=== PATIENT | male | born 1960 | race Caucasian/White ===

== ENCOUNTER 2018-04-04 12:02 | Inpatient (IN) | payer OTHER ==
[2018-04-04 13:03] LABS: HGB 19.1 gm/dL (13.0-17.5); MCH 27.6 pg (25.0-35.0); MCHC 34.3 g/dL (31.0-37.0); MCV 80.4 fL (80.0-100.0); Mean Platelet Volume 9.1; Platelet Count 151 k/uL (150-450); RBC 6.91 m/uL (4.30-5.90); RDW 12.4 % (11.5-15.5); WBC 15.3 k/uL (3.8-10.6)
[2018-04-04 13:15] LABS: HCT 55.6 % (39.0-53.0)
[2018-04-04 13:17] LABS: Albumin 4.9 g/dL (3.5-5.0); Calcium 9.9 mg/dL (8.4-10.2); Potassium 3.7 mmol/L (3.5-5.1); Total Bilirubin 1.4 mg/dL (0.2-1.3); Total Protein 7.7 g/dL (6.3-8.2)
[2018-04-04 13:38] LABS: Lymphocytes # (M) 0.92 k/uL (1.0-4.8); Monocytes # (M) 0.61 k/uL (0-1.0); Neutrophils # (M) 13.77 k/uL (1.3-7.7); Neutrophils % (M) 90 %; Nucleated Red Blood Cells 0 /100 WBC (0-0); Total Cells Counted 100
[2018-04-04 13:40] LABS: Anisocytosis (M) Present
[2018-04-04] MEDS ORDERED: SODIUM CHLORIDE 0.9% 1,000 ML IV STA ×2 (14:30)
--- NOTE | 2018-04-04 14:33 | ED ---
Abdominal Pain HPI <Sohail Gunderson - Last Filed: 04/04/18 16:48> - General Source: patient, RN notes reviewed, old records reviewed Mode of arrival: ambulatory Limitations: no limitations <Norah Hernández - Last Filed: 04/04/18 17:49> - General Chief Complaint: Abdominal Pain Stated Complaint: POSS DEHYDRATION, ABDOMINAL PAIN Time Seen by Provider: 04/04/18 14:08 - History of Present Illness Initial Comments: 49-year-old male presents emergency Department from primary care provider's office chief complaint of dehydration. He's had vomiting and diarrhea since Wednesday morning. Patient states he feels very weak. Patient states he has lost approximately 10 pounds within the past 5 days. Patient relates that he's had no blood in the stools or emesis. Does complain of some lower abdominal pain. Denies any fever or chills. He was able to tolerate some toast and crackers yesterday. Patient states that he's been trying to stay hydrated by drinking water. Patient also complains of a productive cough. He is a heavy smoker. He denies any chest pain. Patient does have a history of the left lung surgery when he was an . Apparently patient's left lower lobe was removed. (Norah Hernández) - Related Data Home Medications Medication Instructions Recorded Confirmed No Known Home Medications [No 04/04/18 04/04/18 Known Home Medications] Allergies Allergy/AdvReac Type Severity Reaction Status Date / Time Penicillins Allergy Rash/Hives/ Verified 04/04/18 14:37 Swelling Review of Systems ROS Other: All systems not noted in ROS Statement are negative. <Sohail Gunderson - Last Filed: 04/04/18 16:48> ROS Other: All systems not noted in ROS Statement are negative. <Norah Hernández - Last Filed: 04/04/18 17:49> ROS Statement: Those systems with pertinent positive or pertinent negative responses have been documented in the HPI. Past Medical History Past Medical History: Eye Disorder Additional Past Medical History / Comment(s): early glaucoma disease, gastritis History of Any Multi-Drug Resistant Organisms: None Reported Past Surgical History: Orthopedic Surgery Additional Past Surgical History / Comment(s): lung surg as infant Past Anesthesia/Blood Transfusion Reactions: No Reported Reaction Past Psychological History: No Psychological Hx Reported Smoking Status: Current every day smoker Past Alcohol Use History: None Reported Past Drug Use History: Marijuana - Past Family History Mother Family Medical History: No Reported History <Norah Hernández - Last Filed: 04/04/18 17:49> General Exam <Sohail Gunderson - Last Filed: 04/04/18 16:48> Limitations: no limitations General appearance: alert, in no apparent distress Head exam: Present: atraumatic, normocephalic, normal inspection Eye exam: Present: normal appearance, PERRL, EOMI. Absent: scleral icterus, conjunctival injection, periorbital swelling ENT exam: Present: normal exam, mucous membranes moist Neck exam: Present: normal inspection. Absent: tenderness, meningismus, lymphadenopathy Respiratory exam: Present: wheezes. Absent: normal lung sounds bilaterally, respiratory distress, rales, rhonchi, stridor Cardiovascular Exam: Present: regular rate, normal rhythm, normal heart sounds. Absent: systolic murmur, diastolic murmur, rubs, gallop, clicks GI/Abdominal exam: Present: soft, tenderness (Minimal lower quadrant tenderness. ), normal bowel sounds. Absent: distended, guarding, rebound, rigid Extremities exam: Present: normal inspection, full ROM, normal capillary refill. Absent: tenderness, pedal edema, joint swelling, calf tenderness Back exam: Present: normal inspection Neurological exam: Present: alert, oriented X3, CN II-XII intact Psychiatric exam: Present: normal affect, normal mood Skin exam: Present: warm, dry, intact, normal color. Absent: rash <Norah Hernández - Last Filed: 04/04/18 17:49> - General Exam Comments Initial Comments: 57-year-old male. Alert and oriented. No acute distress. (Norah Hernández) Course <Sohail Gunderson - Last Filed: 04/04/18 16:48> <Norah Hernández - Last Filed: 04/04/18 17:49> Vital Signs 04/04/18 04/04/18 04/04/18 12:25 15:14 15:26 Temperature 98.1 F Pulse Rate 92 81 79 Respiratory 20 20 Rate Blood Pressure 117/78 142/66 O2 Sat by Pulse 93 L 95 Oximetry 04/04/18 04/04/18 15:34 16:52 Temperature 98.6 F Pulse Rate 80 84 Respiratory 18 Rate Blood Pressure 151/84 O2 Sat by Pulse 96 Oximetry - Reevaluation(s) Reevaluation #1: 04/04/18 16:49 I did personally do a dawn-ux-dueq evaluation the patient and did discuss findings with him and his family did discuss case with Dr. East I do agree with the assessment and plan. (Sohail Gunderson) Medical Decision Making - Lab Data Result diagrams: 04/04/18 12:48 04/04/18 12:48 <Sohail Gunderson - Last Filed: 04/04/18 16:48> - Lab Data Result diagrams: 04/04/18 12:48 04/04/18 12:48 - Radiology Data Radiology results: report reviewed <Norah Hernández - Last Filed: 04/04/18 17:49> - Medical Decision Making Today chief complaint of nausea or vomiting abdominal pain since Wednesday evening. Patient also has history of left lower lung resection. He also complains of a cough. Lab work was performed and distress workup. Patient has an elevated BUN of 108, creatinine of 2.7. Hyponatremic at 121. Potassium was within normal limits. Patient was given 1 L bolus. We did not want to overcorrected this time. Started 125 miles per hour. Patient family seen Dr. Smallwood in the past for kidney injuries. They request to see her. CT abdomen and pelvis without contrast was completed. CT shows no evidence of any acute abnormality's. Chest x-ray completed due to a cough. Patient's cough was treated with albuterol. At this time chest x-ray cannot totally exclude pneumonia. However do with this is just related to patient's scarring from his surgery as a child. Patient's family for these results. Will be admitted at this time for IV hydration re-correction of his electrolytes and kidney function. Will be evaluated by nephrology. Patient's understand treatment plan. (Norah Hernández) - Lab Data Lab Results 04/04/18 04/04/18 04/04/18 Range/Units 12:48 12:48 15:05 WBC 15.3 H (3.8-10.6) k/uL RBC 6.91 H (4.30-5.90) m/uL Hgb 19.1 H (13.0-17.5) gm/dL Hct 55.6 H (39.0-53.0) % MCV 80.4 (80.0-100.0) fL MCH 27.6 (25.0-35.0) pg MCHC 34.3 (31.0-37.0) g/dL RDW 12.4 (11.5-15.5) % Plt Count 151 (150-450) k/uL Neutrophils % (Manual) 90 % Lymphocytes % (Manual) 6 % Monocytes % (Manual) 4 % Neutrophils # (Manual) 13.77 H (1.3-7.7) k/uL Lymphocytes # (Manual) 0.92 L (1.0-4.8) k/uL Monocytes # (Manual) 0.61 (0-1.0) k/uL Nucleated RBCs 0 (0-0) /100 WBC Anisocytosis (manual) Present Sodium 121 L (137-145) mmol/L Potassium 3.7 (3.5-5.1) mmol/L Chloride 75 L* (98-107) mmol/L Carbon Dioxide 26 (22-30) mmol/L Anion Gap 20 mmol/L BUN 108 H* (9-20) mg/dL Creatinine 2.70 H (0.66-1.25) mg/dL Est GFR (CKD-EPI)AfAm 29 (>60 ml/min/1.73 sqM) Est GFR (CKD-EPI)NonAf 25 (>60 ml/min/1.73 sqM) Glucose 142 H (74-99) mg/dL Plasma Lactic Acid João 1.7 (0.7-2.0) mmol/L Calcium 9.9 (8.4-10.2) mg/dL Total Bilirubin 1.4 H (0.2-1.3) mg/dL AST 25 (17-59) U/L ALT 36 (21-72) U/L Alkaline Phosphatase 76 (38-126) U/L Troponin I (0.000-0.034) ng/mL Total Protein 7.7 (6.3-8.2) g/dL Albumin 4.9 (3.5-5.0) g/dL Amylase 100 (30-110) U/L Lipase 196 (23-300) U/L Urine Color Urine Appearance (Clear) Urine pH (5.0-8.0) Ur Specific [place] (1.001-1.035) Urine Protein (Negative) Urine Glucose (UA) (Negative) Urine Ketones (Negative) Urine Blood (Negative) Urine Nitrite (Negative) Urine Bilirubin (Negative) Urine Urobilinogen (<2.0) mg/dL Ur Leukocyte Esterase (Negative) 04/04/18 04/04/18 Range/Units 15:40 17:08 WBC (3.8-10.6) k/uL RBC (4.30-5.90) m/uL Hgb (13.0-17.5) gm/dL Hct (39.0-53.0) % MCV (80.0-100.0) fL MCH (25.0-35.0) pg MCHC (31.0-37.0) g/dL RDW (11.5-15.5) % Plt Count (150-450) k/uL Neutrophils % (Manual) % Lymphocytes % (Manual) % Monocytes % (Manual) % Neutrophils # (Manual) (1.3-7.7) k/uL Lymphocytes # (Manual) (1.0-4.8) k/uL Monocytes # (Manual) (0-1.0) k/uL Nucleated RBCs (0-0) /100 WBC Anisocytosis (manual) Sodium (137-145) mmol/L Potassium (3.5-5.1) mmol/L Chloride (98-107) mmol/L Carbon Dioxide (22-30) mmol/L Anion Gap mmol/L BUN (9-20) mg/dL Creatinine (0.66-1.25) mg/dL Est GFR (CKD-EPI)AfAm (>60 ml/min/1.73 sqM) Est GFR (CKD-EPI)NonAf (>60 ml/min/1.73 sqM) Glucose (74-99) mg/dL Plasma Lactic Acid João (0.7-2.0) mmol/L Calcium (8.4-10.2) mg/dL Total Bilirubin (0.2-1.3) mg/dL AST (17-59) U/L ALT (21-72) U/L Alkaline Phosphatase (38-126) U/L Troponin I 0.024 (0.000-0.034) ng/mL Total Protein (6.3-8.2) g/dL Albumin (3.5-5.0) g/dL Amylase (30-110) U/L Lipase (23-300) U/L Urine Color Yellow Urine Appearance Clear (Clear) Urine pH 5.0 (5.0-8.0) Ur Specific [place] 1.014 (1.001-1.035) Urine Protein Trace H (Negative) Urine Glucose (UA) Negative (Negative) Urine Ketones Negative (Negative) Urine Blood Negative (Negative) Urine Nitrite Negative (Negative) Urine Bilirubin Negative (Negative) Urine Urobilinogen <2.0 (<2.0) mg/dL Ur Leukocyte Esterase Negative (Negative) 04/04/18 15:39 EKG performed at 1513 shows normal sinus rhythm, biatrial enlargement. Rightward axis. Pulmonary disease pattern. Left ventricular hypertrophy with repolarization. Prolonged QT. Ventricular rate of 81 bpm. CO interval is 122 ms. QRS duration 06/15/2006. QTQTC's were 72/558 ms. (Norah Hernández) - Radiology Data Occult to exclude pneumonia. Postop changes noted. Comparison with old chest x -rays would benefit. Consider short interval follow-up. CT abdomen and pelvis without contrast shows no acute intra-abdominal process at this time. (Norah Hernández) Disposition <Sohail Gunderson - Last Filed: 04/04/18 16:48> Is patient prescribed a controlled substance at d/c from ED?: No If prescribed controlled substance>3 days was MAPS reviewed?: No When asked, does pt state using other controlled substances?: No Time of Disposition: 16:55 <Norah Hernández - Last Filed: 04/04/18 17:49> Clinical Impression: SAMANTHA (acute kidney injury), Dehydration, Nausea & vomiting, Cough Disposition: ADMITTED IP TO THIS HOSP Condition: Stable Referrals: Ehsan East MD [Primary Care Provider] - 1-2 days
[2018-04-04] MEDS ORDERED: ALBUTEROL NEBULIZED 2.5 MG/3 ML INHALATION STA (15:05)
--- NOTE | 2018-04-04 16:13 | CT ---
EXAMINATION TYPE: CT abdomen pelvis wo con DATE OF EXAM: 04/04/2018 COMPARISON: 09/06/2017 HISTORY: Diarrhea, abdominal cramping. CT DLP: 549 mGycm Examination of the solid and hollow viscera is limited given the lack of contrast. FINDINGS: LUNG BASES: There are multiple old posterior left sided rib fractures. There is adjacent left basilar scarring and left-sided volume loss. LIVER/GB: The gallbladder is unremarkable. No space-occupying hepatic lesion. PANCREAS: No pancreatic mass identified. No inflammatory process seen. SPLEEN: No evidence for splenomegaly. No intrasplenic lesions seen. ADRENALS: No adrenal nodules identified. No evidence for thickening. KIDNEYS: No evidence for renal mass. No nephrolithiasis. No hydronephrosis. BOWEL: Appendix has a normal appearance. No evidence of bowel obstruction. No inflammatory process. H igh-density material throughout the colon may reflect contrast from recent CT or barium study not per formed at this institution. Correlate clinically. Lymph nodes: No evidence for adenopathy greater than 1 cm. Abdominal aorta: Atheromatous changes seen. No evidence for aneurysm. Genital organs: No significant abnormality. Other: No significant abnormality. IMPRESSION: No acute intra-abdominal or intrapelvic process appreciated at this time.
--- NOTE | 2018-04-04 16:22 | XR ---
EXAMINATION TYPE: XR chest 2V DATE OF EXAM: 04/04/2018 COMPARISON: NONE HISTORY: Cough, shortness of breath and wheezing TECHNIQUE: Frontal and lateral views of the chest are obtained. FINDINGS: The patient is rotated. Postop changes are noted within the chest. No evident pneumothorax. The heart is small. Parenchymal density at the left lung base may be due to scarring, correlate to e xclude pneumonia. Prominent lung volume may be indicative of underlying COPD. Suspect some chronic pl eural reaction at the left lung base. IMPRESSION: Difficult to exclude pneumonia. Postop changes. Comparison with old chest x-rays would b e of benefit. Consider short interval follow-up.
[2018-04-04 17:12] LABS: Appearance,Urine Clear (Clear); Bilirubin,Urine Negative (Negative); Blood,Urine Negative (Negative); Color,Urine Yellow; Glucose,Urine (UA) Negative (Negative); Ketones,Urine Negative (Negative); Leukocyte Esterase,Urine Negative (Negative); Nitrite,Urine Negative (Negative); Protein,Urine Trace (Negative); Specific Gravity,Urine 1.014 (1.001-1.035); Urobilinogen,Urine <2.0 mg/dL (<2.0)
[2018-04-04] MEDS ORDERED: IBUPROFEN 400 MG TAB PO PRN (17:35)
[2018-04-04] MEDS ORDERED: HYDROcodone/APAP 5-325MG 1 EACH TAB PO PRN (17:35)
[2018-04-04] MEDS ORDERED: ACETAMINOPHEN TAB 325 MG TAB PO PRN (17:35)
[2018-04-04] MEDS ORDERED: ONDANSETRON 4 MG/2 ML VIAL IVP PRN (17:35)
[2018-04-04] MEDS ORDERED: NALOXONE 0.4 MG/ML 1 ML VIAL IV PRN (17:35)
[2018-04-05] MEDS: SODIUM CHLORIDE 0.9% 1,000 ML IV SCH ×3 (08:45→23:06)
[2018-04-05] MEDS ORDERED: FAMOTIDINE 20 MG/2 ML VIAL IV SCH (09:00)
[2018-04-05 09:11] LABS: Albumin 3.4 g/dL (3.5-5.0); Calcium 8.2 mg/dL (8.4-10.2); Potassium 3.3 mmol/L (3.5-5.1); Total Bilirubin 0.8 mg/dL (0.2-1.3); Total Protein 5.5 g/dL (6.3-8.2)
[2018-04-05 09:29] LABS: Basophils % (A) 0 %; Eosinophils % (A) 0 %; HCT 47.6 % (39.0-53.0); Lymphocytes # (A) 0.6 k/uL (1.0-4.8); Lymphocytes % (A) 4 %; MCH 27.7 pg (25.0-35.0); MCHC 33.1 g/dL (31.0-37.0); MCV 83.9 fL (80.0-100.0); Mean Platelet Volume 9.5; Monocytes # (A) 1.2 k/uL (0-1.0); Monocytes % (A) 7 %; Neutrophils % (A) 86 %; Platelet Count 129 k/uL (150-450); RBC 5.67 m/uL (4.30-5.90); RDW 12.7 % (11.5-15.5); WBC 17.5 k/uL (3.8-10.6)
[2018-04-05 09:32] LABS: HGB 15.7 gm/dL (13.0-17.5)
[2018-04-05] MEDS ORDERED: POTASSIUM CHLORIDE ER 20 MEQ TAB.ER PO STA (10:33)
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
[2018-04-05] MEDS: NICOTINE 21MG/24HR PATCH TRANSDERM SCH (12:06)
[2018-04-05 13:55] VITALS: BMI 17.6
[2018-04-05] MEDS ORDERED: BENZOCAINE/MENTHOL LOZENG 1 EACH LOZENGE MUCOUS MEM PRN (18:12)
[2018-04-06] MEDS: SODIUM CHLORIDE 0.9% 1,000 ML IV SCH ×3 (05:55→20:32)
[2018-04-06] MEDS: FAMOTIDINE 20 MG TAB PO SCH (08:32)
[2018-04-06] MEDS: NICOTINE 21MG/24HR PATCH TRANSDERM SCH (08:32)
[2018-04-06 08:40] LABS: Basophils % (A) 0 %; Eosinophils % (A) 0 %; HCT 40.6 % (39.0-53.0); Lymphocytes # (A) 0.6 k/uL (1.0-4.8); Lymphocytes % (A) 5 %; MCH 27.2 pg (25.0-35.0); MCHC 32.1 g/dL (31.0-37.0); MCV 84.8 fL (80.0-100.0); Monocytes # (A) 0.9 k/uL (0-1.0); Monocytes % (A) 8 %; Neutrophils # (A) 9.5 k/uL (1.3-7.7); Neutrophils % (A) 82 %; Platelet Count 120 k/uL (150-450); RBC 4.79 m/uL (4.30-5.90); RDW 12.6 % (11.5-15.5); WBC 11.6 k/uL (3.8-10.6)
[2018-04-06 09:05] LABS: Albumin 2.7 g/dL (3.5-5.0); Calcium 7.7 mg/dL (8.4-10.2); Magnesium 2.3 mg/dL (1.6-2.3); Potassium 3.8 mmol/L (3.5-5.1); Total Bilirubin 0.6 mg/dL (0.2-1.3); Total Protein 4.8 g/dL (6.3-8.2)
[2018-04-06] MEDS ORDERED: ALBUTEROL NEBULIZED 2.5 MG/3 ML INHALATION PRN (09:56)
--- NOTE | 2018-04-06 10:17 | P.PN ---
Subjective Progress Note Date: 04/06/18 57-year-old male who saw his PCP, Dr. East, yesterday for complaints of vomiting and diarrhea x 5-6 days. He was found to be dehydrated and was the patient was sent to the emergency room for further evaluation. The patient has a history of asthma and left lower lung lobectomy as an . He is a current cigarette smoker. Chest x-ray: Parenchymal density at the left lung base may be due to scarring, can not exclude pneumonia. Findings of COPD. CT abdomen and pelvis: No acute intra-abdominal or intrapelvic process visualized. Laboratory data: WBC 15.3. Hemoglobin 19.1. Platelet count 151. Sodium 121. Potassium 3.7. BUN 108. Creatinine 2.60. Glucose 142. Urinalysis reveals: Trace proteinuria but otherwise unremarkable The patient was admitted to the hospital under the care of Dr. Styles. Consultations were placed to nephrology. The patient received 1 L fluid bolus in the emergency room and was started on maintenance IV fluids at 125 mL an hour. He states he is feeling better at this time. He denies further episodes of nausea, vomiting, or diarrhea. He is tolerating a regular diet. Denies shortness of breath. Positive for chronic cough secondary to nicotine use. Denies chest pain or pressure. Denies pain or discomfort. 04/06/2018 Patient seen and examined at the bedside. Patient states he had a rough night and did not get much sleep. He states his cough is worsening in severity and now has sputum production. He also complains of increased shortness of breath. Patient was also febrile last night with a temperature of 100.2 degrees F. This morning the patient is afebrile. WBC decreased to 11.6 from 17.5. Patient reports that he does not follow with a pulmonary physician outpatient. Sodium this morning is 134. Creatinine is 1.21, down from 1.64 yesterday. BUN is 33, down from 68. He remains on IV fluids. Influenza A/B completed yesterday was negative. Objective - Vital Signs Vital signs: Vital Signs Temp 97.6 F 04/06/18 06:11 Pulse 96 04/06/18 06:11 Resp 20 04/06/18 06:11 BP 128/72 04/06/18 06:11 Pulse Ox 94 L 04/06/18 06:11 Intake & Output 04/05/18 04/06/18 04/06/18 18:59 06:59 18:59 Intake Total 1000 980 Balance 1000 980 Weight 51.256 kg Intake: Intake, IV Titration 1000 500 Amount Sodium Chloride 0.9% 1, 1000 500 000 ml @ 125 mls/hr IV . Q8H [facility] Rx#:[id number] Oral 480 Other: # Voids 2 # Bowel Movements 1 - Exam GENERAL: This is a 57-year-old male in no apparent distress at the time of examination. Pleasant and cooperative. HEENT: Head is atraumatic, normocephalic. Pupils are equal, round, and reactive to light. Sclerae anicteric. Conjunctivae are clear. Mucus membranes of the mouth are moist. Neck is supple. RESPIRATORY: Diminished at left lung base. Scattered rhonchi throughout. Frequent coughing noted. No use of accessory muscles. Patient maintaining oxygen saturation greater than 92%. No chest wall tenderness is noted on palpation or with deep breathing. CARDIOVASCULAR: Regular rate and rhythm. S1 and S2 noted. No systolic or diastolic murmur auscultated. No JVD noted. No S3 or S4 noted. GASTROINTESTINAL: No distention noted. Abdomen soft and round. Normal active bowel sounds auscultated x 4 quadrants. No pain or tenderness noted upon palpation. INTEGUMENTARY: No cyanosis. No jaundice. No rashes noted. No cellulitis noted. EXTREMITIES: 2+ peripheral pulses. No evidence of peripheral edema. No calf tenderness noted. NEUROLOGIC: Cranial nerves II-XII intact. PSYCHIATRIC: Awake, alert, and oriented X 3. Appropriate affect. Intact judgement and insight. - Labs CBC & Chem 7: 04/06/18 07:52 04/06/18 07:52 Labs: Abnormal Lab Results - Last 24 Hours (Table) 04/05/18 04/06/18 04/06/18 Range/Units 07:59 07:52 07:52 WBC 11.6 H (3.8-10.6) k/uL Plt Count 120 L (150-450) k/uL Neutrophils # 9.5 H (1.3-7.7) k/uL Lymphocytes # 0.6 L (1.0-4.8) k/uL Sodium 134 L (137-145) mmol/L Chloride 97 L (98-107) mmol/L BUN 33 H (9-20) mg/dL Calcium 7.7 L (8.4-10.2) mg/dL Magnesium 2.8 H (1.6-2.3) mg/dL Total Protein 4.8 L (6.3-8.2) g/dL Albumin 2.7 L (3.5-5.0) g/dL Assessment and Plan Plan: ASSESSMENT: Nausea, vomiting, and diarrhea x 5-6 days, likely due to viral gastroenteritis, resolved Nonoliguric acute kidney injury, secondary to hypovolemia due to vomiting and diarrhea, creatinine 2.7 on admission, improved to 1.2 today with IV hydration Hyponatremia, secondary to hypovolemia, resolved with IV hydration Hypokalemia, improved with supplementation Nicotine dependence, patient is a current cigarette smoker, 1 PPD Suspected COPD due to patients extensive smoking history, pulmonary consulted History of left lower lobe lobectomy as an infant PLAN: Nephrology on consult. Appreciate recommendations and input Decrease IV fluids to 50cc/hr Nicotine patch daily. 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 Will consult Dr. Layne to evaluate worsening cough and shortness of breath and for patient to establish care as he likely has COPD due to his extensive smoking history Repeat chest xray Sputum culture Albuterol treatments PRN Incentive spirometer 10 times an hour while awake GI prophylaxis: Pepcid 20mg PO Daily DVT prophylaxis: Encourage ambulation. SCDs to bilateral lower extremities Monitor vital signs and address as appropriate Discharge planning: Patient to return home when stable Further recommendations pending patient's course Nurse practitioner note has been reviewed by physician. Signing provider agrees with the documented findings, assessment, and plan of care.
--- NOTE | 2018-04-06 10:21 | XR ---
EXAMINATION TYPE: XR chest 2V DATE OF EXAM: 04/06/2018 COMPARISON: 04/04/2018 HISTORY: Shortness of breath TECHNIQUE: Frontal and lateral views of the chest are obtained. FINDINGS: Scattered senescent parenchymal changes noted. Hyperinflation compatible with COPD. Increased patchy density left lower lobe with small effusion suggested versus pleural thickening. Heart size is stable. Mediastinal structures are stable and grossly unremarkable. No evidence for hilar prominence. Degenerative changes dorsal spine. IMPRESSION: 1. Increased patchy density left lower lobe with small effusion suggested versus pleural thickening.
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
[2018-04-06] MEDS: IPRATROPIUM-ALBUTEROL 3 ML NEB INHALATION SCH ×2 (11:12→19:26)
[2018-04-06] MEDS: guaiFENesin 600 MG TABLET.ER PO SCH ×2 (11:16→20:32)
[2018-04-06] MEDS: AZITHROMYCIN 500 MG TAB PO SCH (11:16)
[2018-04-06] MEDS: cefTRIAXone IN SWFI 1,000 MG/10 ML SYRINGE IVP SCH (11:16)
[2018-04-06] MEDS: methylPREDNISolone SOD SUCCI 125 MG/2 ML VIAL IV SCH ×3 (11:16→23:32)
--- NOTE | 2018-04-06 11:51 | P.PN ---
Subjective Patient is seen in follow-up for acute kidney injury. Creatinine was 2.7 on admission and is down to 1.2 today. Sodium level is up to 134. He is currently ambulating. Denies chest pain or shortness of breath. Admits to good urine output. He is having soft stools with black discoloration. Denies any active bleeding. Hemoglobin is 13.0 today. Oral intake is good. No nausea or vomiting. Vital signs are stable. General: The patient appeared well nourished and normally developed. HEENT: Head exam is unremarkable. Neck is without jugular venous distension. LUNGS: Lungs are clear to auscultation and percussion. Breath sounds decreased. HEART: Rate and Rhythm are regular. First and second heart sounds normal. No murmurs, rubs or gallops. ABDOMEN: Abdominal exam reveals normal bowel sounds. Non-tender and non- distended. No evidence of peritonitis. EXTREMITITES: No clubbing, cyanosis, or edema. Objective - Vital Signs Vital signs: Vital Signs Temp 97.6 F 04/06/18 06:11 Pulse 94 04/06/18 11:24 Resp 20 04/06/18 06:11 BP 128/72 04/06/18 06:11 Pulse Ox 94 L 04/06/18 06:11 Intake & Output 04/05/18 04/06/18 04/06/18 18:59 06:59 18:59 Intake Total 1000 980 Balance 1000 980 Weight 51.256 kg Intake: Intake, IV Titration 1000 500 Amount Sodium Chloride 0.9% 1, 1000 500 000 ml @ 125 mls/hr IV . Q8H [facility] Rx#:[id number] Oral 480 Other: # Voids 2 # Bowel Movements 1 - Labs CBC & Chem 7: 04/06/18 07:52 04/06/18 07:52 Labs: Abnormal Lab Results - Last 24 Hours (Table) 04/06/18 04/06/18 Range/Units 07:52 07:52 WBC 11.6 H (3.8-10.6) k/uL Plt Count 120 L (150-450) k/uL Neutrophils # 9.5 H (1.3-7.7) k/uL Lymphocytes # 0.6 L (1.0-4.8) k/uL Sodium 134 L (137-145) mmol/L Chloride 97 L (98-107) mmol/L BUN 33 H (9-20) mg/dL Calcium 7.7 L (8.4-10.2) mg/dL Total Protein 4.8 L (6.3-8.2) g/dL Albumin 2.7 L (3.5-5.0) g/dL Assessment and Plan Plan: Assessment: 1. Nonoliguric acute kidney injury mostly prerenal secondary to hypovolemic due to vomiting and diarrhea. Improving with IV hydration. Creatinine was 2.7 on admission and is down to 1.2 today. Urinalysis is quite benign. No evidence of hydronephrosis noted on CAT scan. 2. Hypovolemic hyponatremia improving with IV hydration. 3. Hypokalemia secondary to renal potassium wasting from recovering renal function. Magnesium replete. Improved post replacement. 4. Nausea vomiting and diarrhea possibly due to acute viral gastroenteritis. Improved. Plan: Maintain normal saline at 50 mL an hour. Check stool for occult blood. Encouraged oral intake. Repeat electrolytes in the morning. Stable for discharge from nephrology standpoint. He will need to follow-up as an outpatient in the next 2 weeks.
[2018-04-06] MEDS: BUDESONIDE 0.5 MG/2 ML NEBU INHALATION SCH (19:26)
[2018-04-06] MEDS ORDERED: MONTELUKAST 10 MG TAB PO SCH (21:00)
[2018-04-07] MEDS: methylPREDNISolone SOD SUCCI 125 MG/2 ML VIAL IV SCH (05:48)
[2018-04-07 06:22] VITALS: BP 146/77; TEMP 97
[2018-04-07] MEDS: IPRATROPIUM-ALBUTEROL 3 ML NEB INHALATION SCH (07:04)
[2018-04-07] MEDS: BUDESONIDE 0.5 MG/2 ML NEBU INHALATION SCH (07:06)
[2018-04-07 07:07] VITALS: RESP 16
[2018-04-07 07:30] VITALS: PULSE 55
--- NOTE | 2018-04-07 07:35 | XR ---
EXAMINATION TYPE: XR chest 2V DATE OF EXAM: 04/07/2018 COMPARISON: 04/06/2018 HISTORY: Shortness of breath TECHNIQUE: Frontal and lateral views of the chest are obtained. FINDINGS: New patchy opacity is seen within the left lower lung. Persistent pleural thickening is see n on the left in comparison to the prior CT abdomen pelvis dated 04/03/2018. Trace left pleural effusi on remains as well as multifocal left sided atelectasis. Remote healed left rib fractures are better appreciated on CT. Cardia mediastinal silhouette is within normal limits and surgical clips are seen within the mediastinum. Pulmonary hyperinflation of underlying COPD. IMPRESSION: New left lower lung small patchy opacity that may represent atelectasis or early develop ing pneumonia. Additionally there is multifocal subsegmental left atelectasis, trace pleural effusion and pleural thickening when compared to the prior CT abdomen pelvis dated 04/04/2018.
[2018-04-07 07:58] LABS: Albumin 2.8 g/dL (3.5-5.0); Calcium 8.5 mg/dL (8.4-10.2); Total Bilirubin 0.3 mg/dL (0.2-1.3); Total Protein 4.8 g/dL (6.3-8.2)
[2018-04-07 08:10] LABS: Basophils % (A) 0 %; Eosinophils % (A) 0 %; HCT 38.1 % (39.0-53.0); HGB 12.6 gm/dL (13.0-17.5); Lymphocytes # (A) 0.4 k/uL (1.0-4.8); Lymphocytes % (A) 4 %; MCH 28.2 pg (25.0-35.0); MCV 85.5 fL (80.0-100.0); Mean Platelet Volume 9.2; Monocytes # (A) 0.3 k/uL (0-1.0); Monocytes % (A) 3 %; Neutrophils # (A) 10.2 k/uL (1.3-7.7); Neutrophils % (A) 92 %; Platelet Count 134 k/uL (150-450); RBC 4.46 m/uL (4.30-5.90); RDW 13.1 % (11.5-15.5)
[2018-04-07] MEDS: guaiFENesin 600 MG TABLET.ER PO SCH (08:54)
[2018-04-07] MEDS: NICOTINE 21MG/24HR PATCH TRANSDERM SCH (08:54)
[2018-04-07] MEDS: FAMOTIDINE 20 MG TAB PO SCH (08:55)
[2018-04-07] MEDS: AZITHROMYCIN 500 MG TAB PO SCH (08:55)
[2018-04-07] MEDS: cefTRIAXone IN SWFI 1,000 MG/10 ML SYRINGE IVP SCH (08:55)
--- NOTE | 2018-04-07 10:09 | P.PN ---
Subjective Progress Note Date: 04/07/18 HPI: This is a 57-year-old male patient being seen examined and evaluated today for consultation. This patient was then to see his primary care provider on 2017 with complaints of nausea vomiting and diarrhea for the last week. He was noted to be dehydrated and was sent over to the emergency room for further evaluation and workup. While in the ER the patient did have some complaints of lower abdominal pain, shortness of breath with productive cough. The patient was noted to be dehydrated and did receive a [address] of the abdomen and pelvis was completed and was negative. Chest x-ray was negative. However due to the patient's dehydration and pneumonia cannot be excluded. The patient was noted to have an elevated white count of 17.5, he also was noted to have a sodium of 121, BUN of 108, creatinine of 2.7. The patient has been seen by Dr. Brand in the past for kidney injuries. He was admitted also for further evaluation and workup. The patient is a current every day smoker approximately 1 pack per day for 40 years. The patient also had a history of a left lower lobe lobectomy when he was 18 months old, related to a foreign body. Patient states he has been told he has asthma and the path of the room and told that he has COPD. He has had a past history of environmental seasonal ALLERGIES and just took [id number] ALLERGY medications. He denies any use of nebulizers or MDIs. 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 He has not been ALLERGY tested since he was a kid. He does have dog as a pet in the home. Chest x-ray was reviewed and shows COPD/emphysema with some left lower lobe postop scarring. Due to the patient's dehydration status pneumonia is difficult to exclude. He did have low-grade fevers overnight. Upon examination the patient's resting up in bed on room air states he does have shortness of breath with exertion and activity. He has had a productive cough with white-yellow sputum. Did have a low-grade fever overnight. Of note the patient does state he had a 20 pound weight loss in the last 2 months. No further complaints. Interval History: 04/07/18- patient is being seen examined and evaluated today on rounds. He is resting up in bed on room air. Has been using his incentive spirometer and pulling volumes of approximately 2000. He states his breathing feels much better today. He is requesting to go home. Chest x-ray was reviewed and does show a new left lower lobe early developing pneumonia with a trace pleural effusion, which is what we expected. His white count is is down to 11 today. His BUN and creatinine continue to improve. He has had a good appetite. Has been up ambulating in the room. He is afebrile denies any further complaints. Objective - Vital Signs Vital signs: Vital Signs Temp 97 F L 04/07/18 05:00 Pulse 55 L 04/07/18 07:16 Resp 16 04/07/18 07:16 BP 146/77 04/07/18 05:00 Pulse Ox 95 04/07/18 07:07 Intake & Output 04/06/18 04/07/18 04/07/18 18:59 06:59 18:59 Intake Total 700 1390 Balance 700 1390 Weight 51.256 kg Intake: Intake, IV Titration 700 800 Amount Sodium Chloride 0.9% 1, 700 800 000 ml @ 50 mls/hr IV . Q20H [facility] Rx#:[id number] Oral 590 Other: # Voids 2 # Bowel Movements 1 - Exam GENERAL EXAM: Alert, comfortable in no apparent distress. HEAD: Normocephalic. EYES: Normal reaction of pupils, equal size. NOSE: Clear with pink turbinates. THROAT: No erythema or exudates. NECK: No masses, no JVD. CHEST: No chest wall deformity. LUNGS: Lungs noted to be coarse with faint expiratory wheezing. Left lung bases diminished. Improved aeration overall CVS: S1 and S2 normal with no audible mumurs, regular rhythm. ABDOMEN: No hepatosplenomegaly, normal bowel sounds, no guarding or rigidity. EXTREMITIES: No edema noted, pedal pulses palpable. CENTRAL NERVOUS SYSTEM: No focal deficits, tone is normal in all 4 extremities. - Labs CBC & Chem 7: 04/07/18 06:49 04/07/18 06:49 Labs: Abnormal Lab Results - Last 24 Hours (Table) 04/07/18 04/07/18 Range/Units 06:49 06:49 WBC 11.0 H (3.8-10.6) k/uL Hgb 12.6 L (13.0-17.5) gm/dL Hct 38.1 L (39.0-53.0) % Plt Count 134 L (150-450) k/uL Neutrophils # 10.2 H (1.3-7.7) k/uL Lymphocytes # 0.4 L (1.0-4.8) k/uL Sodium 136 L (137-145) mmol/L BUN 29 H (9-20) mg/dL Glucose 155 H (74-99) mg/dL Total Protein 4.8 L (6.3-8.2) g/dL Albumin 2.8 L (3.5-5.0) g/dL Microbiology - Last 24 Hours (Table) 04/06/18 16:30 Gram Stain - Preliminary Sputum Sputum Culture - Preliminary 04/06/18 16:30 Acid Fast Bacilli Culture - Preliminary Sputum Assessment and Plan Assessment: Assessment Tracheobronchitis, Left lower lobe pneumonia Dehydration with nausea and vomiting, suspect viral gastroenteritis Acute kidney injury related to dehydration Hypokalemia Hyponatremia Nicotine dependence COPD History of left lower lobe lobectomy Plan Patient is cleared for discharge from pulmonary standpoint. He will go home on a steroid taper as well as oral antibiotics Prescription for her nebulizer machine provided Continue Mucinex and Singulair Chest x-ray reviewed Sputum culture pending Pending IgE, alpha-1 antitrypsin level, hypersensitivity pneumonitis panel, ALLERGY panel Pending Legionella and Mycoplasma Continue with pulmonary hygiene, coughing and deep breathing exercises, and supportive care. Supplemental oxygen to maintain oxygen saturations of 92% or better., If needed Continue nebulizer treatments with DuoNeb and budesonide. Monitor and replace electrolytes per protocol. Smoking cessation Patient would benefit from a full PFT workup in the outpatient setting GI prophylaxis with Pepcid and DVT prophylaxis with SCDs and ambulation. We will continue to monitor labs/results and adjust treatment as necessary. Further recommendations pending. I performed an examination of the patient and discussed their management with the nurse practitioner. I have reviewed the nurse practitioner's note and agree with the documented findings and plan of care.
--- NOTE | 2018-04-07 10:51 | P.PN ---
Subjective Patient is seen in follow-up for acute kidney injury. Creatinine was 2.7 on admission and is down to 1.12 today. Sodium level is up to 136. Denies chest pain or shortness of breath. Admits to good urine output. Denies any active bleeding. Hemoglobin is 12.6 today. Oral intake is good. No nausea or vomiting. Vital signs are stable. General: The patient appeared well nourished and normally developed. HEENT: Head exam is unremarkable. Neck is without jugular venous distension. LUNGS: Lungs are clear to auscultation and percussion. Breath sounds decreased. HEART: Rate and Rhythm are regular. First and second heart sounds normal. No murmurs, rubs or gallops. ABDOMEN: Abdominal exam reveals normal bowel sounds. Non-tender and non- distended. No evidence of peritonitis. EXTREMITITES: No clubbing, cyanosis, or edema. Objective - Vital Signs Vital signs: Vital Signs Temp 97 F L 04/07/18 05:00 Pulse 55 L 04/07/18 07:16 Resp 16 04/07/18 07:16 BP 146/77 04/07/18 05:00 Pulse Ox 95 04/07/18 07:07 Intake & Output 04/06/18 04/07/18 04/07/18 18:59 06:59 18:59 Intake Total 700 1390 Balance 700 1390 Weight 51.256 kg Intake: Intake, IV Titration 700 800 Amount Sodium Chloride 0.9% 1, 700 800 000 ml @ 50 mls/hr IV . Q20H [facility] Rx#:[id number] Oral 590 Other: # Voids 2 # Bowel Movements 1 - Labs CBC & Chem 7: 04/07/18 06:49 04/07/18 06:49 Labs: Abnormal Lab Results - Last 24 Hours (Table) 04/07/18 04/07/18 Range/Units 06:49 06:49 WBC 11.0 H (3.8-10.6) k/uL Hgb 12.6 L (13.0-17.5) gm/dL Hct 38.1 L (39.0-53.0) % Plt Count 134 L (150-450) k/uL Neutrophils # 10.2 H (1.3-7.7) k/uL Lymphocytes # 0.4 L (1.0-4.8) k/uL Sodium 136 L (137-145) mmol/L BUN 29 H (9-20) mg/dL Glucose 155 H (74-99) mg/dL Total Protein 4.8 L (6.3-8.2) g/dL Albumin 2.8 L (3.5-5.0) g/dL Microbiology - Last 24 Hours (Table) 04/06/18 16:30 Gram Stain - Preliminary Sputum Sputum Culture - Preliminary 04/06/18 16:30 Acid Fast Bacilli Culture - Preliminary Sputum Assessment and Plan Plan: Assessment: 1. Nonoliguric acute kidney injury mostly prerenal secondary to hypovolemic due to vomiting and diarrhea. Improving with IV hydration. Creatinine was 2.7 on admission and is down to 1.13 today. Urinalysis is quite benign. No evidence of hydronephrosis noted on CAT scan. 2. Hypovolemic hyponatremia improving with IV hydration. 3. Hypokalemia secondary to renal potassium wasting from recovering renal function. Magnesium replete. Improved post replacement. 4. Nausea vomiting and diarrhea possibly due to acute viral gastroenteritis. Improved. Plan: Hep-Lock IV fluids. Encouraged oral intake. Stable for discharge from nephrology standpoint. He will need to follow-up as an outpatient in the next 2 weeks.
--- NOTE | 2018-04-07 11:45 | P.DS ---
Providers Date of admission: 04/04/18 16:50 Expected date of discharge: 04/07/18 Attending physician: Ehsan East Consults: 04/04/18 17:35 Consult Physician Stat Consulting Provider: Christina Smallwood Consult Reason/Comments: SAMANTHA, Hyponatremia Do you want consulting provider notified?: Yes 04/06/18 10:05 Consult Physician Routine Consulting Provider: Shadia Layne Consult Reason/Comments: SOB, cough, current smoker Do you want consulting provider notified?: Yes Primary care physician: Ehsan East [facility] Course: 57-year-old male who saw his PCP, Dr. East, yesterday for complaints of vomiting and diarrhea x 5-6 days. He was found to be dehydrated and was the patient was sent to the emergency room for further evaluation. The patient has a history of asthma and left lower lung lobectomy as an infant. He is a current cigarette smoker. Chest x-ray: Parenchymal density at the left lung base may be due to scarring, can not exclude pneumonia. Findings of COPD. CT abdomen and pelvis: No acute intra-abdominal or intrapelvic process visualized. Laboratory data: WBC 15.3. Hemoglobin 19.1. Platelet count 151. Sodium 121. Potassium 3.7. BUN 108. Creatinine 2.60. Glucose 142. Urinalysis reveals: Trace proteinuria but otherwise unremarkable The patient was admitted to the hospital under the care of Dr. Styles. Consultations were placed to nephrology. The patient received 1 L fluid bolus in the emergency room and was started on maintenance IV fluids at 125 mL an hour. He states he is feeling better at this time. He denies further episodes of nausea, vomiting, or diarrhea. He is tolerating a regular diet. Denies shortness of breath. Positive for chronic cough secondary to nicotine use. Denies chest pain or pressure. Denies pain or discomfort. 04/06/2018 Patient seen and examined at the bedside. Patient states he had a rough night and did not get much sleep. He states his cough is worsening in severity and now has sputum production. He also complains of increased shortness of breath. Patient was also febrile last night with a temperature of 100.2 degrees F. This morning the patient is afebrile. WBC decreased to 11.6 from 17.5. Patient reports that he does not follow with a pulmonary physician outpatient. Will consult Dr. Layne to evaluate worsening cough and shortness of breath and for patient to establish care as he likely has COPD due to his extensive smoking historySodium this morning is 134. Creatinine is 1.21, down from 1.64 yesterday. BUN is 33, down from 68. He remains on IV fluids. Influenza A/B completed yesterday was negative. 04/07/2018 Patient states he feels overall improved. Shortness of breath has improved. Repeat chest x-ray completed this morning reveals new left lower lung with small patchy opacity that may represent atelectasis or early developing pneumonia. Patient was evaluated by Dr. Layne yesterday. Patient started on antibiotics, singulair, and steroids. Patient does not have a neubulizer machine at home. Patient was given Rx for machine by pulmonary. He was cleared for discharge from a pulmonary standpoint. He was also prescribed Levaquin for 7 days per pulmonary at the time of discharge. WBC is down to 11.0 today. Sodium remained stable at 136. BUN has decreased to 29. Creatinine is 1.13. He has been cleared for discharge from a nephrology standpoint. The patient was deemed stable for discharge. He is to follow up on an outpatient basis his primary care physician, pulmonary, and nephrology. Prescriptions were sent to the patient's preferred pharmacy for Pulmicort, DuoNeb nebulizer, Levaquin, Singulair, and prednisone taper. DISCHARGE DIAGNOSIS: Nausea, vomiting, and diarrhea x 5-6 days, likely due to viral gastroenteritis, resolved Nonoliguric acute kidney injury, secondary to hypovolemia due to vomiting and diarrhea, creatinine 2.7 on admission, improved with IV hydration Suspected COPD due to patients extensive smoking history Tracheobronchitis and left lower lobe pneumonia Hyponatremia, secondary to hypovolemia, resolved with IV hydration Hypokalemia, improved with supplementation Nicotine dependence, patient is a current cigarette smoker, 1 PPD History of left lower lobe lobectomy as an infant Nurse practitioner note has been reviewed by physician. Signing provider agrees with the documented findings, assessment, and plan of care. Patient Condition at Discharge: Stable Plan - Discharge Summary Discharge Rx Participant: No New Discharge Prescriptions: New Budesonide [Pulmicort] 0.5 mg INHALATION BID #60 neb Ipratropium-Albuterol Nebulize [Duoneb 0.5 mg-3 mg/3 ml Soln] 3 ml INHALATION QID #120 neb Levofloxacin [Levaquin] 500 mg PO DAILY 7 Days #7 tab Montelukast [Singulair] 10 mg PO HS #30 tab predniSONE 10 mg PO DIRECTED #30 tab Discharge Medication List Budesonide [Pulmicort] 0.5 mg INHALATION BID #60 neb 04/07/18 [Rx] Ipratropium-Albuterol Nebulize [Duoneb 0.5 mg-3 mg/3 ml Soln] 3 ml INHALATION QID #120 neb 04/07/18 [Rx] Levofloxacin [Levaquin] 500 mg PO DAILY 7 Days #7 tab 04/07/18 [Rx] Montelukast [Singulair] 10 mg PO HS #30 tab 04/07/18 [Rx] predniSONE 10 mg PO DIRECTED #30 tab 04/07/18 [Rx] Follow up Appointment(s)/Referral(s): Shadia Layne DO [Doctor of Osteopathic Medicine] - 04/08/18 9:00 am Ehsan East MD [Primary Care Provider] - 04/12/18 10:00 am Ventura Zaragoza DO [STAFF PHYSICIAN] - 2 Weeks Patient Instructions/Handouts: Prednisone (By mouth), Levofloxacin (By mouth), Budesonide (By breathing), Ipratropium/Albuterol (By breathing), Montelukast ( By mouth), Pneumonitis (DC) Activity/Diet/Wound Care/Special Instructions: [facility] [employer] [address] [place], [address] Phone - [phone] Discharge Disposition: HOME SELF-CARE
[2018-04-08 06:53] LABS: Mycoplasma IgM Antibody 0.69 INDEX (<=0.90)
[2018-04-08 15:08] LABS: Alpha 1 Anti-Trypsin 208 mg/dL (90 - 200)
[2018-04-11 00:40] LABS: Alternaria Alternata IgG 2.7 mcg/mL (< 13.6); Aspergillus fumigatus IgG Not detected (Not detected); Aureobasidium pullulans IgG < 2.0 mcg/mL (< 13.6); Cladosporium herbarium IgG 8.3 mcg/mL (< 14.7); Phoma ssp. IgG 3.1 mcg/mL (< 6.6); Saccaharomospora viridis Not detected (Not detected); Saccaharopoly. rectivirgula Not detected (Not detected)
[2018-04-12 11:38] LABS: Alt. alternata IgE Class CLASS 0; Alternaria alternata IgE <0.35 kU/L (<0.35); Asperg. fumagatus IgE <0.35 kU/L (<0.35); Asperg. fumagatus IgE Class CLASS 0; Bermuda Grass IgE <0.35 kU/L (<0.35); Birch(Com.Silvr) IgE <0.35 kU/L (<0.35); Birch(Com.Silvr) IgE Class CLASS 0; Cat Epith & Dander IgE <0.35 kU/L (<0.35); Cat Epith & Dander IgE Class CLASS 0; Clad herbarum IgE <0.35 kU/L (<0.35); Cockroach IgE <0.35 kU/L (<0.35); Cottonwood IgE <0.35 kU/L (<0.35); Dermato. Pteronyssinus IgE <0.35 kU/L (<0.35); Dermato. farinae IgE <0.35 kU/L (<0.35); Dermato. farinae IgE Class CLASS 0; Dog Dander IgE <0.35 kU/L (<0.35); Elm IgE <0.35 kU/L (<0.35); Maple (Box Elder) IgE <0.35 kU/L (<0.35); Maple (Box Elder) IgE Class CLASS 0; Mountain Cedar IgE <0.35 kU/L (<0.35); Mountain Cedar IgE Class CLASS 0; Mouse Urine IgE Class CLASS 0; Nettle IgE <0.35 kU/L (<0.35); Nettle IgE Class CLASS 0; Oak IgE <0.35 kU/L (<0.35); Penicillium notatum IgE Class CLASS 0; Rough Marshelder IgE <0.35 kU/L (<0.35); Rough Marshelder IgE Class CLASS 0; Timothy Grass IgE <0.35 kU/L (<0.35); White Ash IgE Class CLASS 0
== END 2018-04-07 11:25 | disposition home or self-care (01) | DRG 682 ==
LOC: EC 12:02 → 5MS5E 16:50
PROVIDERS: ADMIT Family Medicine; ATTEND Family Medicine
DX: N17.9 Acute kidney failure, unspecified (principal); J18.9 Pneumonia, unspecified organism; E87.1 Hypo-osmolality and hyponatremia; E86.0 Dehydration; E86.1 Hypovolemia; E87.6 Hypokalemia; F17.210 Nicotine dependence, cigarettes, uncomplicated; H40.9 Unspecified glaucoma; J43.9 Emphysema, unspecified; A08.4 Viral intestinal infection, unspecified; Z90.2 Acquired absence of lung [part of]; Z88.0 Allergy status to penicillin
CPT/HCPCS: 36415; 71046; 74176; 80053; 81003; 82103; 82104; 82150; 82272; 82785; 83605; 83690; 83735; 84484; 85025; 86001; 86003; 86606; 86609; 86738; 87070; 87116; 87205; 87206; 87449; 87502; 93005; 94640; 94760; 96360; 96361; 99285

== ENCOUNTER 2018-05-23 10:44 | Inpatient (IN) | payer OTHER ==
[2018-05-23] MEDS ORDERED: SODIUM CHLORIDE 0.9% 500 ML IV STA (11:08)
[2018-05-23] MEDS ORDERED: SODIUM CHLORIDE 0.9% 1,000 ML IV STA (11:08)
[2018-05-23] MEDS ORDERED: ONDANSETRON 4 MG/2 ML VIAL IVP STA ×2 (11:08→14:06)
--- NOTE | 2018-05-23 11:11 | ED ---
General Adult HPI - General Chief complaint: Nausea/Vomiting/Diarrhea Stated complaint: Dehydration Time Seen by Provider: 05/23/18 10:45 Source: patient, RN notes reviewed Mode of arrival: ambulatory Limitations: no limitations - History of Present Illness Initial comments: This is a 57-year-old male who presents emergency Department with no significant past medical history. Patient comes in complaining of vomiting suggest a. Patient states that the point where he can't keep anything down. Patient went to the primary medical care doctor and they were out of any antiemetics in the office with a centimeter the emergency department to get some fluids and some antiemetics. Patient denies any fever chills. Patient states he only has abdominal cramping but no abdominal pain. Patient denies any diarrhea. Patient denies any chest pain difficulty breathing shortness of breath. Patient denies any dysuria hematuria urinary frequency. - Related Data Home Medications Medication Instructions Recorded Confirmed No Known Home Medications 05/23/18 05/23/18 Allergies Allergy/AdvReac Type Severity Reaction Status Date / Time Penicillins Allergy Rash/Hives/ Verified 05/23/18 11:10 Swelling Review of Systems ROS Statement: Those systems with pertinent positive or pertinent negative responses have been documented in the HPI. ROS Other: All systems not noted in ROS Statement are negative. Past Medical History Past Medical History: Asthma, Eye Disorder Additional Past Medical History / Comment(s): early glaucoma disease, gastritis past brken lt arm-casted, History of Any Multi-Drug Resistant Organisms: None Reported Past Surgical History: Orthopedic Surgery Additional Past Surgical History / Comment(s): lung surg as -inhaled a peice of angle hair used on a rolf tree" Past Anesthesia/Blood Transfusion Reactions: No Reported Reaction Past Psychological History: No Psychological Hx Reported Smoking Status: Current every day smoker Past Alcohol Use History: None Reported Past Drug Use History: Marijuana - Past Family History Mother Family Medical History: No Reported History Father Family Medical History: Liver Disease Additional Family Medical History / Comment(s): etoh- liver disease General Exam - General Exam Comments Initial Comments: GENERAL: Patient is well-developed and well-nourished. Patient is nontoxic and well- hydrated and is in mild distress. ENT: Neck is soft and supple. No significant lymphadenopathy is noted. Oropharynx is clear. Dry mucous membranes. Neck has full range of motion without eliciting any pain. EYES: The sclera were anicteric and conjunctiva were pink and moist. Extraocular movements were intact and pupils were equal round and reactive to light. Eyelids were unremarkable. PULMONARY: Unlabored respirations. Good breath sounds bilaterally. No audible rales rhonchi or wheezing was noted. CARDIOVASCULAR: There is a regular rate and rhythm without any murmurs gallops or rubs. ABDOMEN: Soft and nontender with normal bowel sounds. No palpable organomegaly was noted. There is no palpable pulsatile mass. SKIN: Skin is clear with no lesions or rashes and otherwise unremarkable. NEUROLOGIC: Patient is alert and oriented x3. Cranial nerves II through XII are grossly intact. Motor and sensory are also intact. Normal speech, volume and content. Symmetrical smile. MUSCULOSKELETAL: Normal extremities with adequate strength and full range of motion. No lower extremity swelling or edema. No calf tenderness. LYMPHATICS: No significant lymphadenopathy is noted PSYCHIATRIC: Normal psychiatric evaluation. Limitations: no limitations Course Vital Signs 05/23/18 05/23/18 05/23/18 10:45 12:11 14:20 Temperature 98.1 F 98.1 F Pulse Rate 92 84 81 Respiratory 18 18 18 Rate Blood Pressure 162/107 178/81 186/94 O2 Sat by Pulse 98 98 99 Oximetry Medical Decision Making - Lab Data Result diagrams: 05/23/18 11:24 05/23/18 11:24 Lab Results 05/23/18 05/23/18 05/23/18 Range/Units 11:24 11:24 11:24 WBC 15.8 H (3.8-10.6) k/uL RBC 6.04 H (4.30-5.90) m/uL Hgb 16.9 D (13.0-17.5) gm/dL Hct 50.8 (39.0-53.0) % MCV 84.2 (80.0-100.0) fL MCH 28.0 (25.0-35.0) pg MCHC 33.3 (31.0-37.0) g/dL RDW 13.7 (11.5-15.5) % Plt Count 234 (150-450) k/uL Neutrophils % 87 % Lymphocytes % 5 % Monocytes % 5 % Eosinophils % 0 % Basophils % 0 % Neutrophils # 13.8 H (1.3-7.7) k/uL Lymphocytes # 0.9 L (1.0-4.8) k/uL Monocytes # 0.8 (0-1.0) k/uL Eosinophils # 0.0 (0-0.7) k/uL Basophils # 0.0 (0-0.2) k/uL Sodium 137 (137-145) mmol/L Potassium 3.7 (3.5-5.1) mmol/L Chloride 91 L (98-107) mmol/L Carbon Dioxide 20 L (22-30) mmol/L Anion Gap 26 mmol/L BUN 35 H (9-20) mg/dL Creatinine 2.23 H (0.66-1.25) mg/dL Est GFR (CKD-EPI)AfAm 36 (>60 ml/min/1.73 sqM) Est GFR (CKD-EPI)NonAf 31 (>60 ml/min/1.73 sqM) Glucose 156 H (74-99) mg/dL Calcium 11.0 H (8.4-10.2) mg/dL Magnesium 1.5 L (1.6-2.3) mg/dL Total Bilirubin 0.9 (0.2-1.3) mg/dL AST 32 (17-59) U/L ALT 34 (21-72) U/L Alkaline Phosphatase 83 (38-126) U/L Total Protein 8.8 H (6.3-8.2) g/dL Albumin 5.5 H (3.5-5.0) g/dL Amylase 121 H (30-110) U/L Lipase 102 (23-300) U/L Disposition Clinical Impression: Renal insufficiency, Intractable vomiting, Dehydration Disposition: ADMITTED IP TO THIS [facility] Referrals: Ehsan East MD [Primary Care Provider] - 1-2 days Time of Disposition: 14:39
[2018-05-23 11:39] LABS: Basophils % (A) 0 %; Eosinophils % (A) 0 %; HCT 50.8 % (39.0-53.0); Lymphocytes # (A) 0.9 k/uL (1.0-4.8); Lymphocytes % (A) 5 %; MCHC 33.3 g/dL (31.0-37.0); MCV 84.2 fL (80.0-100.0); Mean Platelet Volume 7.9; Monocytes # (A) 0.8 k/uL (0-1.0); Monocytes % (A) 5 %; Neutrophils # (A) 13.8 k/uL (1.3-7.7); Neutrophils % (A) 87 %; Platelet Count 234 k/uL (150-450); RBC 6.04 m/uL (4.30-5.90); RDW 13.7 % (11.5-15.5); WBC 15.8 k/uL (3.8-10.6)
[2018-05-23 11:45] LABS: HGB 16.9 gm/dL (13.0-17.5)
[2018-05-23 11:57] LABS: Albumin 5.5 g/dL (3.5-5.0); Potassium 3.7 mmol/L (3.5-5.1); Total Bilirubin 0.9 mg/dL (0.2-1.3); Total Protein 8.8 g/dL (6.3-8.2)
--- NOTE | 2018-05-23 14:23 | XR ---
EXAMINATION TYPE: XR KUB DATE OF EXAM: 05/23/2018 2:14 PM CLINICAL HISTORY: Nausea and vomiting TECHNIQUE: Single upright image of the abdomen is obtained. COMPARISON: None. FINDINGS: Scattered gas is seen in non-distended small bowel loops. Gas is seen throughout the nondil ated colon. There is no visceromegaly, pneumoperitoneum, or abnormal calcification appreciated. The l jennie bases are clear other than blunting of the left costophrenic angle, likely related to trace pleur al effusion. The osseous structures are intact with moderate degenerative change of the lumbosacral j unction and slight levoscoliotic curvature of the lumbar spine, likely positional in nature. IMPRESSION: Nonobstructive bowel gas pattern.
[2018-05-23] MEDS ORDERED: SODIUM CHLORIDE 0.9% 1,000 ML IV ONE (15:01)
[2018-05-23] MEDS ORDERED: hydrALAZINE HCL 20 MG/ML 1 ML VIAL IVP STA (15:43)
[2018-05-23 17:59] LABS: Appearance,Urine Cloudy (Clear); Bilirubin,Urine Negative (Negative); Blood,Urine Trace (Negative); Color,Urine Yellow; Glucose,Urine (UA) Negative (Negative); Hyaline Casts,Urine 84 /lpf (0-2); Ketones,Urine 1+ (Negative); Leukocyte Esterase,Urine Small (Negative); Mucus,Urine Rare /hpf; Nitrite,Urine Negative (Negative); PH, Urine 5.5 (5.0-8.0); Protein,Urine 2+ (Negative); RBC,Urine 2 /hpf (0-5); Specific Gravity,Urine 1.015 (1.001-1.035); Urobilinogen,Urine <2.0 mg/dL (<2.0); WBC,Urine 6 /hpf (0-5)
[2018-05-23] MEDS: ONDANSETRON 4 MG/2 ML VIAL IVP PRN (22:33)
[2018-05-24] MEDS: ONDANSETRON 4 MG/2 ML VIAL IVP PRN ×2 (05:51→20:43)
[2018-05-24] MEDS: SODIUM CHLORIDE 0.9% 1,000 ML IV SCH ×2 (08:34→17:30)
[2018-05-24 08:58] VITALS: BMI 18.2
--- NOTE | 2018-05-24 09:31 | P.HPIM ---
History of Present Illness H&P Date: 05/24/18 Chief Complaint: Nausea vomiting 57-year-old male who presented to the emergency room with a chief complaint of nausea and vomiting. The patient states his symptoms started Wednesday morning. He denies diarrhea or constipation. He reports his last bowel movement was Wednesday morning and was normal. He does complain of generalized abdominal pain. He denies having a fever at home but does state he was having "shakes all over". The patient reports decreased oral intake and inability to keep fluids down. He denies chest pain or shortness of breath. He states he went to see his primary care physician yesterday who recommended that he come to the emergency room for further evaluation. The patient was recently hospitalized from 04/04/2018 until 04/07/2018 with similar symptoms. He was treated with IV fluids and discharged home in stable condition. The patient has a history of asthma and left lower lung lobectomy as an . He is a current cigarette smoker. He reports smoking 1 pack per day. He denies alcohol use. He reports occasional marijuana use and states last time he used marijuana was Wednesday night. KUB x-ray revealed nonobstructive bowel gas pattern. Laboratory data: WBC 15.8. Hemoglobin 16.9. Platelet count 234. BUN 35. Creatinine 2.23. Glucose 156. Calcium 11.0. Magnesium 1.5. Amylase 121. Lipase 101. Urinalysis revealed cloudy urine, 2+ proteinuria, 1+ ketones, trace blood, small leukocyte esterase, WBC 6, and 84 hyaline cast. Review of Systems Those systems with pertinent positive or pertinent negative responses have been documented in the HPI Past Medical History Past Medical History: Asthma, Eye Disorder Additional Past Medical History / Comment(s): early glaucoma disease, gastritis past brken lt arm-casted, History of Any Multi-Drug Resistant Organisms: None Reported Past Surgical History: Orthopedic Surgery Additional Past Surgical History / Comment(s): lung surg as infant-inhaled a peice of angle hair used on a rolf tree", tooth extraction Past Anesthesia/Blood Transfusion Reactions: No Reported Reaction Smoking Status: Current some day smoker - Past Family History Mother Family Medical History: No Reported History Father Family Medical History: Liver Disease Additional Family Medical History / Comment(s): etoh- liver disease Medications and Allergies Home Medications Medication Instructions Recorded Confirmed Type No Known Home Medications 05/23/18 05/23/18 History Allergies Allergy/AdvReac Type Severity Reaction Status Date / Time Penicillins Allergy Rash/Hives/ Verified 05/23/18 11:10 Swelling Physical Exam Vitals: Vital Signs Temp Pulse Pulse Resp BP BP Pulse Ox 05/24/18 06:07 97.0 F L 74 15 167/94 100 05/23/18 22:55 97.0 F L 95 16 153/86 97 05/23/18 16:59 97.0 F L 84 16 170/87 99 05/23/18 16:44 97.8 F 92 20 162/88 99 05/23/18 16:08 171/87 05/23/18 15:40 97.9 F 65 18 191/91 97 05/23/18 14:20 81 18 186/94 99 05/23/18 12:11 98.1 F 84 18 178/81 98 05/23/18 10:45 98.1 F 92 18 162/107 98 Intake and Output 05/23/18 05/24/18 05/24/18 22:59 06:59 14:59 Output Total 350 302 Balance -350 -302 Output: Urine 350 300 Emesis 2 Other: # Voids 1 1 Weight 52.889 kg GENERAL: This is a 57-year-old male in no apparent distress at the time of examination. Pleasant and cooperative. HEENT: Head is atraumatic, normocephalic. Pupils are equal, round, and reactive to light. Sclerae anicteric. Conjunctivae are clear. Mucus membranes of the mouth are moist. Neck is supple. RESPIRATORY: Clear to ausculation. No wheezes, rales, or rhonchi. No use of accessory muscles. Patient maintaining oxygen saturation greater than 92%. No chest wall tenderness is noted on palpation or with deep breathing. CARDIOVASCULAR: Regular rate and rhythm. S1 and S2 noted. No systolic or diastolic murmur auscultated. No JVD noted. No S3 or S4 noted. GASTROINTESTINAL: No distention noted. Abdomen soft and round. Bowel sounds auscultated x 4 quadrants. No pain or tenderness noted upon palpation. INTEGUMENTARY: No cyanosis. No jaundice. No rashes noted. No cellulitis noted. EXTREMITIES: 2+ peripheral pulses. No evidence of peripheral edema. No calf tenderness noted. NEUROLOGIC: Cranial nerves II-XII intact. PSYCHIATRIC: Awake, alert, and oriented X 3. Appropriate affect. Intact judgement and insight. Results CBC & Chem 7: 05/23/18 11:24 05/23/18 11:24 Labs: Abnormal Lab Results - Last 24 Hours (Table) 05/23/18 05/23/18 05/23/18 Range/Units 11:24 11:24 11:24 WBC 15.8 H (3.8-10.6) k/uL RBC 6.04 H (4.30-5.90) m/uL Neutrophils # 13.8 H (1.3-7.7) k/uL Lymphocytes # 0.9 L (1.0-4.8) k/uL Chloride 91 L (98-107) mmol/L Carbon Dioxide 20 L (22-30) mmol/L BUN 35 H (9-20) mg/dL Creatinine 2.23 H (0.66-1.25) mg/dL Glucose 156 H (74-99) mg/dL Calcium 11.0 H (8.4-10.2) mg/dL Magnesium 1.5 L (1.6-2.3) mg/dL Total Protein 8.8 H (6.3-8.2) g/dL Albumin 5.5 H (3.5-5.0) g/dL Amylase 121 H (30-110) U/L Urine Protein (Negative) Urine Ketones (Negative) Urine Blood (Negative) Ur Leukocyte Esterase (Negative) Urine WBC (0-5) /hpf Hyaline Casts (0-2) /lpf Urine Mucus (None) /hpf 05/23/18 Range/Units 17:50 WBC (3.8-10.6) k/uL RBC (4.30-5.90) m/uL Neutrophils # (1.3-7.7) k/uL Lymphocytes # (1.0-4.8) k/uL Chloride (98-107) mmol/L Carbon Dioxide (22-30) mmol/L BUN (9-20) mg/dL Creatinine (0.66-1.25) mg/dL Glucose (74-99) mg/dL Calcium (8.4-10.2) mg/dL Magnesium (1.6-2.3) mg/dL Total Protein (6.3-8.2) g/dL Albumin (3.5-5.0) g/dL Amylase (30-110) U/L Urine Protein 2+ H (Negative) Urine Ketones 1+ H (Negative) Urine Blood Trace H (Negative) Ur Leukocyte Esterase Small H (Negative) Urine WBC 6 H (0-5) /hpf Hyaline Casts 84 H (0-2) /lpf Urine Mucus Rare H (None) /hpf Thrombosis Risk Factor Assmnt - Choose All That Apply Each Factor Represents 1 point: Age 41-60 years Thrombosis Risk Factor Assessment Total Risk Factor Score: 1 Thrombosis Risk Factor Assessment Level: Low Risk Assessment and Plan Plan: ASSESSMENT: Abdominal pain, nausea, and vomiting x 2 days, suspect due to viral gastroenteritis with possible component of cannabis hyperemesis syndrome Nonoliguric acute kidney injury, secondary to hypovolemia due to vomiting and decreased oral intake Leukocytosis, likely reactive, no evidence of sepsis Recent hospitalization, March 2018 for nausea, vomiting, and acute renal failure COPD, no evidence of acute exacerbation Nicotine dependence, patient is a current cigarette smoker, 1 PPD History of left lower lobe lobectomy as an Cannabis use, patient reports smoking marijuana Wednesday night PLAN: Continue IV fluids Continue anti-emetics Clear liquid diet Patient offered nicotine patch-patient declined Repeat CBC, CMP, and magnesium GI prophylaxis: Protonix 40 mg IV Daily DVT prophylaxis: SCDs to bilateral LE Monitor vital signs and address as appropriate Discharge planning: Patient to return home when stable Further recommendations pending patient's course Nurse practitioner note has been reviewed by physician. Signing provider agrees with the documented findings, assessment, and plan of care.
[2018-05-24] MEDS: PANTOPRAZOLE 40 MG/10 ML VIAL IVP SCH (09:49)
[2018-05-24 10:16] LABS: Basophils % (A) 0 %; Eosinophils % (A) 0 %; HCT 44.3 % (39.0-53.0); HGB 14.3 gm/dL (13.0-17.5); Lymphocytes # (A) 0.9 k/uL (1.0-4.8); Lymphocytes % (A) 6 %; MCH 27.3 pg (25.0-35.0); MCHC 32.3 g/dL (31.0-37.0); MCV 84.5 fL (80.0-100.0); Mean Platelet Volume 7.9; Monocytes # (A) 0.7 k/uL (0-1.0); Monocytes % (A) 5 %; Neutrophils # (A) 12.8 k/uL (1.3-7.7); Neutrophils % (A) 86 %; Platelet Count 209 k/uL (150-450); RBC 5.24 m/uL (4.30-5.90); RDW 13.6 % (11.5-15.5); WBC 14.9 k/uL (3.8-10.6)
[2018-05-24 11:02] LABS: ALT 32 U/L (21-72); AST 25 U/L (17-59); Albumin 4.3 g/dL (3.5-5.0); Alkaline Phosphatase 63 U/L (38-126); Anion Gap 15 mmol/L; Blood Urea Nitrogen 22 mg/dL (9-20); Calcium 9.4 mg/dL (8.4-10.2); Carbon Dioxide 28 mmol/L (22-30); Chloride 96 mmol/L (98-107); Glucose 114 mg/dL (74-99); Magnesium 1.9 mg/dL (1.6-2.3); Potassium 3.9 mmol/L (3.5-5.1); Sodium 139 mmol/L (137-145); Total Bilirubin 0.7 mg/dL (0.2-1.3); Total Protein 6.6 g/dL (6.3-8.2)
[2018-05-24] MEDS ORDERED: BACLOFEN 10 MG TAB PO PRN (13:27)
[2018-05-25] MEDS: SODIUM CHLORIDE 0.9% 1,000 ML IV SCH (05:52)
[2018-05-25 06:28] VITALS: BP 146/67; PULSE 52; RESP 18; TEMP 97.8
[2018-05-25 08:50] LABS: Basophils % (A) 0 %; Eosinophils % (A) 0 %; HCT 41.2 % (39.0-53.0); HGB 13.3 gm/dL (13.0-17.5); Lymphocytes # (A) 0.8 k/uL (1.0-4.8); Lymphocytes % (A) 10 %; MCHC 32.2 g/dL (31.0-37.0); MCV 86.9 fL (80.0-100.0); Mean Platelet Volume 8.3; Monocytes # (A) 0.5 k/uL (0-1.0); Monocytes % (A) 6 %; Neutrophils # (A) 6.4 k/uL (1.3-7.7); Neutrophils % (A) 80 %; Platelet Count 167 k/uL (150-450); RBC 4.74 m/uL (4.30-5.90); RDW 13.7 % (11.5-15.5)
[2018-05-25 09:13] LABS: Anion Gap 12 mmol/L; Blood Urea Nitrogen 10 mg/dL (9-20); Calcium 8.7 mg/dL (8.4-10.2); Carbon Dioxide 28 mmol/L (22-30); Chloride 96 mmol/L (98-107); Glucose 213 mg/dL (74-99); Potassium 3.8 mmol/L (3.5-5.1); Sodium 136 mmol/L (137-145)
[2018-05-25] MEDS: PANTOPRAZOLE 40 MG/10 ML VIAL IVP SCH (09:44)
--- NOTE | 2018-05-25 10:39 | P.PN ---
Subjective Progress Note Date: 05/25/18 57-year-old male who presented to the emergency room with a chief complaint of nausea and vomiting. The patient states his symptoms started Wednesday morning. He denies diarrhea or constipation. He reports his last bowel movement was Wednesday morning and was normal. He does complain of generalized abdominal pain. He denies having a fever at home but does state he was having "shakes all over". The patient reports decreased oral intake and inability to keep fluids down. He denies chest pain or shortness of breath. He states he went to see his primary care physician yesterday who recommended that he come to the emergency room for further evaluation. The patient was recently hospitalized from 04/04/2018 until 04/07/2018 with similar symptoms. He was treated with IV fluids and discharged home in stable condition. The patient has a history of asthma and left lower lung lobectomy as an infant. He is a current cigarette smoker. He reports smoking 1 pack per day. He denies alcohol use. He reports occasional marijuana use and states last time he used marijuana was Wednesday night. KUB x-ray revealed nonobstructive bowel gas pattern. Laboratory data: WBC 15.8. Hemoglobin 16.9. Platelet count 234. BUN 35. Creatinine 2.23. Glucose 156. Calcium 11.0. Magnesium 1.5. Amylase 121. Lipase 101. Urinalysis revealed cloudy urine, 2+ proteinuria, 1+ ketones, trace blood, small leukocyte esterase, WBC 6, and 84 hyaline cast. 05/25/2018 Patient seen and examined at the bedside. Patient states he is feeling better today but he is unsure if he feels well enough to be discharged today. He states he is tolerating clear liquids. He does report episode of emesis at 0400. He reports improvement in abdominal pain. WBC is 8.0. BUN 10. Creatinine is 0.78. Objective - Vital Signs Vital signs: Vital Signs Temp 97.8 F 05/25/18 06:27 Pulse 52 L 05/25/18 06:27 Resp 18 05/25/18 06:27 BP 146/67 05/25/18 06:27 Pulse Ox 99 05/25/18 06:27 Intake & Output 05/24/18 05/25/18 05/25/18 18:59 06:59 18:59 Output Total 750 Balance -750 Weight 52.889 kg Output: Urine 750 Other: # Voids 3 1 - Exam GENERAL: This is a 57-year-old male in no apparent distress at the time of examination. Pleasant and cooperative. HEENT: Head is atraumatic, normocephalic. Pupils are equal, round, and reactive to light. Sclerae anicteric. Conjunctivae are clear. Mucus membranes of the mouth are moist. Neck is supple. RESPIRATORY: Clear to ausculation. No wheezes, rales, or rhonchi. No use of accessory muscles. Patient maintaining oxygen saturation greater than 92%. No chest wall tenderness is noted on palpation or with deep breathing. CARDIOVASCULAR: Regular rate and rhythm. S1 and S2 noted. No systolic or diastolic murmur auscultated. No JVD noted. No S3 or S4 noted. GASTROINTESTINAL: No distention noted. Abdomen soft and round. Bowel sounds auscultated x 4 quadrants. No pain or tenderness noted upon palpation. INTEGUMENTARY: No cyanosis. No jaundice. No rashes noted. No cellulitis noted. EXTREMITIES: 2+ peripheral pulses. No evidence of peripheral edema. No calf tenderness noted. NEUROLOGIC: Cranial nerves II-XII intact. PSYCHIATRIC: Awake, alert, and oriented X 3. Appropriate affect. Intact judgement and insight. - Labs CBC & Chem 7: 05/25/18 08:34 05/25/18 08:34 Labs: Abnormal Lab Results - Last 24 Hours (Table) 05/24/18 05/25/18 05/25/18 Range/Units 09:40 08:34 08:34 Lymphocytes # 0.8 L (1.0-4.8) k/uL Sodium 136 L (137-145) mmol/L Chloride 96 L 96 L (98-107) mmol/L BUN 22 H (9-20) mg/dL Glucose 114 H 213 H (74-99) mg/dL Assessment and Plan Plan: ASSESSMENT: Abdominal pain, nausea, and vomiting x 2 days, suspect due to viral gastroenteritis with possible component of cannabis hyperemesis syndrome Nonoliguric acute kidney injury, secondary to hypovolemia due to vomiting and decreased oral intake, resolved Leukocytosis, likely reactive, no evidence of sepsis, resolved Recent hospitalization, March 2018 for nausea, vomiting, and acute renal failure COPD, no evidence of acute exacerbation Nicotine dependence, patient is a current cigarette smoker, 1 PPD History of left lower lobe lobectomy as an infant Cannabis use, patient reports smoking marijuana Wednesday night PLAN: Continue IV fluids Continue anti-emetics Full liquid diet. Advance as tolerated Patient offered nicotine patch-patient declined GI prophylaxis: Protonix 40 mg IV Daily DVT prophylaxis: SCDs to bilateral LE Monitor vital signs and address as appropriate Discharge planning: Patient to return home when stable Further recommendations pending patient's course Possible discharge this afternoon. Will re-evaluate patient this afternoon. Nurse practitioner note has been reviewed by physician. Signing provider agrees with the documented findings, assessment, and plan of care.
--- NOTE | 2018-05-26 12:26 | P.DS ---
Providers Date of admission: 05/23/18 15:01 Expected date of discharge: 05/25/18 Attending physician: Ehsan East Primary care physician: Ehsan Cruzito [facility] Course: 57-year-old male who presented to the emergency room with a chief complaint of nausea and vomiting. The patient states his symptoms started Wednesday morning. He denies diarrhea or constipation. He reports his last bowel movement was Wednesday morning and was normal. He does complain of generalized abdominal pain. He denies having a fever at home but does state he was having "shakes all over". The patient reports decreased oral intake and inability to keep fluids down. He denies chest pain or shortness of breath. He states he went to see his primary care physician yesterday who recommended that he come to the emergency room for further evaluation. The patient was recently hospitalized from 04/04/2018 until 04/07/2018 with similar symptoms. He was treated with IV fluids and discharged home in stable condition. The patient has a history of asthma and left lower lung lobectomy as an infant. He is a current cigarette smoker. He reports smoking 1 pack per day. He denies alcohol use. He reports occasional marijuana use and states last time he used marijuana was Wednesday night. KUB x-ray revealed nonobstructive bowel gas pattern. Laboratory data: WBC 15.8. Hemoglobin 16.9. Platelet count 234. BUN 35. Creatinine 2.23. Glucose 156. Calcium 11.0. Magnesium 1.5. Amylase 121. Lipase 101. Urinalysis revealed cloudy urine, 2+ proteinuria, 1+ ketones, trace blood, small leukocyte esterase, WBC 6, and 84 hyaline cast. The patient received IV fluids and entiemetics. His kidney function has returned to baseline. He is tolerating full liquid diet. Patient was deemed stable for discharge. He is to follow up with his PCP in a week. Patient also noted to have some elevated blood pressure readings. Patient instructed to take his blood pressure at home daily and keep a log and take it with him to his follow up appointment with his PCP. Patient agreeable. DISCHARGE DIAGNOSIS: Abdominal pain, nausea, and vomiting x 2 days, suspect due to viral gastroenteritis with component of cannabis hyperemesis syndrome Nonoliguric acute kidney injury, secondary to hypovolemia due to vomiting and decreased oral intake, resolved Leukocytosis, likely reactive, no evidence of sepsis, resolved Recent hospitalization, March 2018 for nausea, vomiting, and acute renal failure COPD, no evidence of acute exacerbation Nicotine dependence, patient is a current cigarette smoker, 1 PPD History of left lower lobe lobectomy as an infant Cannabis use, patient reports smoking marijuana Wednesday night Nurse practitioner note has been reviewed by physician. Signing provider agrees with the documented findings, assessment, and plan of care. Patient Condition at Discharge: Stable Plan - Discharge Summary Discharge Rx Participant: Yes New Discharge Prescriptions: Continue No Known Home Medications Discharge Medication List No Known Home Medications 05/23/18 [History] Follow up Appointment(s)/Referral(s): Ehsan East MD [Primary Care Provider] - 06/02/18 8:45 am Patient Instructions/Handouts: Gastroenteritis (DC) Activity/Diet/Wound Care/Special Instructions: Regular diet. [place], advance as tolerated. NO smoking, cessation information provided. Discharge Disposition: HOME SELF-CARE
== END 2018-05-25 16:11 | disposition home or self-care (01) | DRG 392 ==
LOC: EC 10:44 → 4MS4W 15:01
PROVIDERS: ADMIT Family Medicine; ATTEND Family Medicine
DX: A08.4 Viral intestinal infection, unspecified (principal); N17.9 Acute kidney failure, unspecified; F12.988 Cannabis use, unspecified with other cannabis-induced disorder; R11.2 Nausea with vomiting, unspecified; E86.0 Dehydration; Z88.0 Allergy status to penicillin; J44.9 Chronic obstructive pulmonary disease, unspecified; D72.829 Elevated white blood cell count, unspecified; E86.1 Hypovolemia; R80.9 Proteinuria, unspecified; F17.210 Nicotine dependence, cigarettes, uncomplicated; R03.0 Elevated blood-pressure reading, without diagnosis of hypertension; H40.9 Unspecified glaucoma; Z87.81 Personal history of (healed) traumatic fracture; Z90.2 Acquired absence of lung [part of]; Z80.0 Family history of malignant neoplasm of digestive organs; Z81.1 Family history of alcohol abuse and dependence
CPT/HCPCS: 36415; 74018; 80048; 80053; 81001; 82150; 83690; 83735; 85025; 96361; 96374; 96375; 96376; 99285

== ENCOUNTER 2018-06-06 12:54 | Emergency (ER) | payer OTHER ==
[2018-06-06] MEDS ORDERED: SODIUM CHLORIDE 0.9% 1,000 ML IV STA (13:36)
[2018-06-06] MEDS ORDERED: ONDANSETRON 4 MG/2 ML VIAL IVP STA (13:36)
--- NOTE | 2018-06-06 13:43 | ED ---
Abdominal Pain HPI - General Chief Complaint: Abdominal Pain Time Seen by Provider: 06/06/18 13:29 Source: patient, RN notes reviewed Mode of arrival: ambulatory Limitations: no limitations - History of Present Illness Initial Comments: This is a 57-year-old male presents emergency Department chief complaint abdominal pain. Patient states that he saw his PCP today who sent the hospital for lab work and CT of his abdomen to rule out appendicitis. Patient went to have CT but had increase in pain and vomited in which he detects sent to the ER. Patient reports lower abdominal pain associated with nausea and vomiting. Denies any diarrhea, constipation, dysuria hematuria. Patient reports no fever no chills no night sweats. Denies any chest pain or shortness of breath. - Related Data Previous Rx's Medication Instructions Recorded Ondansetron Odt [Zofran Odt] 4 mg PO Q8HR PRN #10 tab 06/06/18 Allergies Allergy/AdvReac Type Severity Reaction Status Date / Time Penicillins Allergy Rash/Hives/ Verified 06/06/18 13:44 Swelling Review of Systems ROS Statement: Those systems with pertinent positive or pertinent negative responses have been documented in the HPI. ROS Other: All systems not noted in ROS Statement are negative. Past Medical History Past Medical History: Asthma, Eye Disorder Additional Past Medical History / Comment(s): early glaucoma disease, gastritis past brken lt arm-casted, History of Any Multi-Drug Resistant Organisms: None Reported Past Surgical History: Orthopedic Surgery Additional Past Surgical History / Comment(s): lung surg as -inhaled a peice of angle hair used on a rolf tree", tooth extraction Past Anesthesia/Blood Transfusion Reactions: No Reported Reaction Past Psychological History: No Psychological Hx Reported Smoking Status: Current some day smoker Past Alcohol Use History: None Reported Past Drug Use History: Marijuana - Past Family History Mother Family Medical History: No Reported History Father Family Medical History: Liver Disease Additional Family Medical History / Comment(s): etoh- liver disease General Exam Limitations: no limitations General appearance: alert, in no apparent distress Head exam: Present: atraumatic, normocephalic, normal inspection Neck exam: Present: normal inspection, full ROM. Absent: tenderness, meningismus, lymphadenopathy Respiratory exam: Present: normal lung sounds bilaterally. Absent: respiratory distress, wheezes, rales, rhonchi, stridor Cardiovascular Exam: Present: regular rate, normal rhythm, normal heart sounds. Absent: systolic murmur, diastolic murmur, rubs, gallop, clicks GI/Abdominal exam: Present: soft, tenderness (Mild to moderate lower abdominal tenderness), normal bowel sounds. Absent: distended, guarding, rebound, rigid Back exam: Absent: CVA tenderness (R), CVA tenderness (L) Skin exam: Present: warm, dry, intact, normal color. Absent: rash Course Vital Signs 06/06/18 06/06/18 06/06/18 13:07 13:52 14:17 Temperature 97.8 F Pulse Rate 83 65 70 Respiratory 22 18 18 Rate Blood Pressure 213/113 215/99 197/98 O2 Sat by Pulse 100 99 98 Oximetry 06/06/18 15:00 Temperature Pulse Rate 86 Respiratory 20 Rate Blood Pressure 181/56 O2 Sat by Pulse 99 Oximetry Medical Decision Making - Medical Decision Making 57-year-old male presents emergency Department for abdominal discomfort nausea vomiting. Patient had CT does not show any evidence of appendicitis did not clearly identify the appendix those there is no inflammatory changes he has no localized right lower quadrant abdominal pain. He does feel improved after IV fluids and Zofran. This more consistent with enteritis will be discharged at this time. - Lab Data Result diagrams: 06/06/18 13:44 06/06/18 13:44 Lab Results 06/06/18 06/06/18 06/06/18 Range/Units 13:44 13:44 13:44 WBC 12.2 H (3.8-10.6) k/uL RBC 5.50 (4.30-5.90) m/uL Hgb 14.9 (13.0-17.5) gm/dL Hct 47.0 (39.0-53.0) % MCV 85.4 (80.0-100.0) fL MCH 27.0 (25.0-35.0) pg MCHC 31.6 (31.0-37.0) g/dL RDW 13.8 (11.5-15.5) % Plt Count 283 (150-450) k/uL Neutrophils % 89 % Lymphocytes % 6 % Monocytes % 4 % Eosinophils % 0 % Basophils % 0 % Neutrophils # 10.8 H (1.3-7.7) k/uL Lymphocytes # 0.7 L (1.0-4.8) k/uL Monocytes # 0.4 (0-1.0) k/uL Eosinophils # 0.0 (0-0.7) k/uL Basophils # 0.1 (0-0.2) k/uL PT (9.0-12.0) sec INR (<1.2) APTT (22.0-30.0) sec Sodium 143 (137-145) mmol/L Potassium 4.3 (3.5-5.1) mmol/L Chloride 105 (98-107) mmol/L Carbon Dioxide 26 (22-30) mmol/L Anion Gap 12 mmol/L BUN 14 (9-20) mg/dL Creatinine 0.95 (0.66-1.25) mg/dL Est GFR (CKD-EPI)AfAm >90 (>60 ml/min/1.73 sqM) Est GFR (CKD-EPI)NonAf 88 (>60 ml/min/1.73 sqM) Glucose 170 H (74-99) mg/dL Calcium 11.0 H (8.4-10.2) mg/dL Phosphorus 3.4 (2.5-4.5) mg/dL Total Bilirubin 0.4 (0.2-1.3) mg/dL AST 29 (17-59) U/L ALT 38 (21-72) U/L Alkaline Phosphatase 77 (38-126) U/L Total Protein 7.7 (6.3-8.2) g/dL Albumin 5.0 (3.5-5.0) g/dL Amylase 120 H (30-110) U/L Lipase 78 (23-300) U/L 06/06/18 Range/Units 13:44 WBC (3.8-10.6) k/uL RBC (4.30-5.90) m/uL Hgb (13.0-17.5) gm/dL Hct (39.0-53.0) % MCV (80.0-100.0) fL MCH (25.0-35.0) pg MCHC (31.0-37.0) g/dL RDW (11.5-15.5) % Plt Count (150-450) k/uL Neutrophils % % Lymphocytes % % Monocytes % % Eosinophils % % Basophils % % Neutrophils # (1.3-7.7) k/uL Lymphocytes # (1.0-4.8) k/uL Monocytes # (0-1.0) k/uL Eosinophils # (0-0.7) k/uL Basophils # (0-0.2) k/uL PT 10.0 (9.0-12.0) sec INR 1.0 (<1.2) APTT 23.3 (22.0-30.0) sec Sodium (137-145) mmol/L Potassium (3.5-5.1) mmol/L Chloride (98-107) mmol/L Carbon Dioxide (22-30) mmol/L Anion Gap mmol/L BUN (9-20) mg/dL Creatinine (0.66-1.25) mg/dL Est GFR (CKD-EPI)AfAm (>60 ml/min/1.73 sqM) Est GFR (CKD-EPI)NonAf (>60 ml/min/1.73 sqM) Glucose (74-99) mg/dL Calcium (8.4-10.2) mg/dL Phosphorus (2.5-4.5) mg/dL Total Bilirubin (0.2-1.3) mg/dL AST (17-59) U/L ALT (21-72) U/L Alkaline Phosphatase (38-126) U/L Total Protein (6.3-8.2) g/dL Albumin (3.5-5.0) g/dL Amylase (30-110) U/L Lipase (23-300) U/L Disposition Clinical Impression: Nausea & vomiting, Abdominal pain Disposition: HOME SELF-CARE Condition: Stable Instructions: Abdominal Pain (ED) Additional Instructions: Please return to the Emergency Department if symptoms worsen or any other concerns. Prescriptions: Ondansetron Odt [Zofran Odt] 4 mg PO Q8HR PRN #10 tab PRN Reason: Nausea Is patient prescribed a controlled substance at d/c from ED?: No Referrals: Kenneth Styles Jr, DO [Primary Care Provider] - 1-2 days Time of Disposition: 15:25
[2018-06-06] MEDS ORDERED: hydrALAZINE HCL 20 MG/ML 1 ML VIAL IVP STA (13:54)
[2018-06-06 13:59] LABS: Basophils # (A) 0.1 k/uL (0-0.2); Basophils % (A) 0 %; Eosinophils % (A) 0 %; HGB 14.9 gm/dL (13.0-17.5); Lymphocytes # (A) 0.7 k/uL (1.0-4.8); Lymphocytes % (A) 6 %; MCHC 31.6 g/dL (31.0-37.0); MCV 85.4 fL (80.0-100.0); Mean Platelet Volume 6.9; Monocytes # (A) 0.4 k/uL (0-1.0); Monocytes % (A) 4 %; Neutrophils # (A) 10.8 k/uL (1.3-7.7); Neutrophils % (A) 89 %; Platelet Count 283 k/uL (150-450); RDW 13.8 % (11.5-15.5); WBC 12.2 k/uL (3.8-10.6)
[2018-06-06 14:07] LABS: Phosphorus 3.4 mg/dL (2.5-4.5)
[2018-06-06 14:08] LABS: Partial Thromboplastin Time 23.3 sec (22.0-30.0)
[2018-06-06 14:35] LABS: ALT 38 U/L (21-72); AST 29 U/L (17-59); Alkaline Phosphatase 77 U/L (38-126); Anion Gap 12 mmol/L; Blood Urea Nitrogen 14 mg/dL (9-20); Carbon Dioxide 26 mmol/L (22-30); Chloride 105 mmol/L (98-107); Glucose 170 mg/dL (74-99); Potassium 4.3 mmol/L (3.5-5.1); Sodium 143 mmol/L (137-145); Total Bilirubin 0.4 mg/dL (0.2-1.3); Total Protein 7.7 g/dL (6.3-8.2)
[2018-06-06 15:16] VITALS: RESP 20
--- NOTE | 2018-06-06 15:18 | CT ---
EXAMINATION TYPE: CT abdomen pelvis w con DATE OF EXAM: 06/06/2018 COMPARISON: None INDICATION: Generalized abdominal pain, nausea and vomiting. DLP: 348.3 mGycm, Automated exposure control for dose reduction was used. CONTRAST: 100ml mL of Isovue M300. Study performed without Oral Contrast TECHNIQUE: Axial images were obtained from above the diaphragm to the pubic rami in the axial plane a t 5 mm thick sections. Reconstructed images are reviewed on the computer in the coronal plane. FINDINGS: Limited CT sections are obtained the lung bases. The lung bases are clear. There is some rib deform ity along the posterior lateral left lung base. Small hiatal hernia is present. CT ABDOMEN: Liver: Normal Spleen: Normal Pancreas: Normal Adrenal glands: The adrenal glands are normal. Gallbladder: Normal Kidneys: No masses are evident. No hydronephrosis is present. No cysts are present. Delayed images were obtained through the kidneys, which remain unremarkable. Aorta: Vascular calcification is within the aorta. Inferior vena cava: Normal. CT PELVIS: Loops of bowel within the abdomen and pelvis are normal. Study is without oral contrast limiting the evaluation. Appendix: Not clearly identified. No suspicious dilated tubular structure inflammatory changes eviden t. Urinary bladder: Normal. Genitourinary structures: Prostate is prominent Osseous structures: No suspicious lytic or sclerotic lesions. IMPRESSIONS: 1. No suspicious abnormality to account for nausea and vomiting.
[2018-06-06 15:47] LABS: Amorphous Sediment,Urine Rare /hpf; Appearance,Urine Clear (Clear); Bilirubin,Urine Negative (Negative); Blood,Urine Negative (Negative); Color,Urine Yellow; Glucose,Urine (UA) Negative (Negative); Ketones,Urine 1+ (Negative); Leukocyte Esterase,Urine Negative (Negative); Mucus,Urine Rare /hpf; Nitrite,Urine Negative (Negative); Protein,Urine 1+ (Negative); RBC,Urine 2 /hpf (0-5); Specific Gravity,Urine 1.032 (1.001-1.035); Urobilinogen,Urine <2.0 mg/dL (<2.0); WBC,Urine 4 /hpf (0-5)
[2018-06-06 15:54] VITALS: BP 165/86; PULSE 75; TEMP 98.3
== END 2018-06-06 15:40 | disposition home or self-care (01) ==
LOC: EC 12:54 → EDSTATUS 14:00 → EC 15:40
DX: R11.2 Nausea with vomiting, unspecified (principal); R10.30 Lower abdominal pain, unspecified; F17.200 Nicotine dependence, unspecified, uncomplicated; Z88.0 Allergy status to penicillin
CPT/HCPCS: 36415; 80053; 82150; 83690; 84100; 85025; 85610; 85730; 81001; 74177; 99284; 96374; 96375; 96361 ×2; J0360; J2405; Q9967

== ENCOUNTER 2018-06-08 19:37 | Emergency (ER) | payer OTHER ==
[2018-06-08 19:46] VITALS: BP 178/81; PULSE 82; RESP 21; TEMP 97.5
[2018-06-08] MEDS ORDERED: ONDANSETRON 4 MG/2 ML VIAL IVP STA (21:15)
[2018-06-08] MEDS ORDERED: SODIUM CHLORIDE 0.9% 1,000 ML IV STA (21:15)
--- NOTE | 2018-06-08 21:37 | ED ---
Nausea/Vomiting/Diarrhea HPI - General Source: patient Mode of arrival: ambulatory Limitations: no limitations <Natividad Galvez - Last Filed: 06/09/18 17:20> <Jacinto Corrales - Last Filed: 06/14/18 07:53> - General Chief complaint: Nausea/Vomiting/Diarrhea Stated complaint: med refill Time Seen by Provider: 06/08/18 21:04 - History of Present Illness Initial comments: 57-year-old male patient presents to the emergency department today for complaints of nausea and vomiting intermittently over the last 2 months. Patient states that he will have a couple of days where he feels fine but then his symptoms returned. Patient states he has been evaluated multiple times by both his primary care physician and the emergency department for his symptoms. Patient states that he was seen here a couple of days ago, he was given a prescription for Zofran which did seem to help control his symptoms however today started having symptoms again. Patient states he was following a clear liquid diet and had tolerated some solid food over the last couple of days. Patient denies any significant abdominal pain at this time. Patient states he has been having diarrhea with this as well. He denies any travel prior to symptom onset. Denies any sick contacts. Patient states he has lost 20 pounds since March when his symptoms first appeared. He denies any fevers with this but states he has been having chills. Denies any chest pain or shortness of breath. Does admit to smoking marijuana but only on the weekends. Patient denies any recent rash, shortness breath, chest pain, back pain, numbness, tingling, dizziness, weakness, hematuria, dysuria, urinary urgency, urinary frequency, headache, visual changes, or any other complaints. (Natividad Galvez) - Related Data Previous Rx's Medication Instructions Recorded Ondansetron Odt [Zofran Odt] 4 mg PO Q8HR PRN #10 tab 06/06/18 Allergies Allergy/AdvReac Type Severity Reaction Status Date / Time Penicillins Allergy Rash/Hives/ Verified 06/08/18 19:45 Swelling Review of Systems ROS Other: All systems not noted in ROS Statement are negative. <Natividad Galvez - Last Filed: 06/09/18 17:20> ROS Other: All systems not noted in ROS Statement are negative. <AntoniJacinto Marycarmen - Last Filed: 06/14/18 07:53> ROS Statement: Those systems with pertinent positive or pertinent negative responses have been documented in the HPI. Past Medical History Past Medical History: Asthma, Eye Disorder Additional Past Medical History / Comment(s): early glaucoma disease, gastritis past brken lt arm-casted, History of Any Multi-Drug Resistant Organisms: None Reported Past Surgical History: Orthopedic Surgery Additional Past Surgical History / Comment(s): lung surg as infant-inhaled a peice of angle hair used on a rolf tree", tooth extraction Past Anesthesia/Blood Transfusion Reactions: No Reported Reaction Past Psychological History: No Psychological Hx Reported Smoking Status: Current some day smoker Past Alcohol Use History: None Reported Past Drug Use History: Marijuana - Past Family History Mother Family Medical History: No Reported History Father Family Medical History: Liver Disease Additional Family Medical History / Comment(s): etoh- liver disease <Natividad Galvez M - Last Filed: 06/09/18 17:20> General Exam Limitations: no limitations General appearance: alert, in no apparent distress, other (This is a thin appearing adult male patient in no acute distress. Vital signs upon presentation are temperature 97.5F, pulse 82, respirations 21, blood pressure 178/81, pulse ox 99% on room air.) Eye exam: Present: normal appearance, PERRL, EOMI. Absent: scleral icterus, conjunctival injection, periorbital swelling ENT exam: Present: normal exam, normal oropharynx, mucous membranes moist Respiratory exam: Present: normal lung sounds bilaterally. Absent: respiratory distress, wheezes, rales, rhonchi, stridor Cardiovascular Exam: Present: regular rate, normal rhythm, normal heart sounds. Absent: systolic murmur, diastolic murmur, rubs, gallop, clicks GI/Abdominal exam: Present: soft, normal bowel sounds. Absent: distended, tenderness, guarding, rebound, rigid Neurological exam: Present: alert, oriented X3, CN II-XII intact Psychiatric exam: Present: normal affect, normal mood Skin exam: Present: warm, dry, intact, normal color. Absent: rash <Natividad Galvez M - Last Filed: 06/09/18 17:20> Vital Signs 06/08/18 19:41 Temperature 97.5 F L Pulse Rate 82 Respiratory 21 Rate Blood Pressure 178/81 O2 Sat by Pulse 99 Oximetry Medical Decision Making - Lab Data Result diagrams: 06/08/18 21:50 06/08/18 21:50 <Natividad Galvez - Last Filed: 06/09/18 17:20> - Lab Data Result diagrams: 06/08/18 21:50 06/08/18 21:50 <Jacinto Corrales - Last Filed: 06/14/18 07:53> - Medical Decision Making 57-year-old male patient presented to the emergency department today for evaluation of nausea and vomiting that has been intermittent since March. Physical examination is relatively unremarkable. Abdomen soft and nontender. Vital signs are stable. Labs reviewed and showed a mild increase in amylase and lipase. Patient was feeling somewhat better after receiving IV fluids and nausea medication here in the department. He will be discharged home with prescription for Zofran as well as instructions to follow up with gastroenterology for further evaluation. Return parameters were discussed in detail. He verbalizes understanding and agrees with this plan. (Natividad Galvez) Resident/PA attestation: I, Dr. Jacinto Corrales, personally saw and examined the patient. I have reviewed and agree with the resident/PA findings, including all diagnostic interpretations and treatment plans as written unless otherwise stated. I was present for the rios portions of any procedures performed and inclusive time noted for any critical care statement. (Jacinto Corrales) - Lab Data Lab Results 06/08/18 06/08/18 Range/Units 21:50 21:50 WBC 8.7 (3.8-10.6) k/uL RBC 5.04 (4.30-5.90) m/uL Hgb 14.1 (13.0-17.5) gm/dL Hct 42.5 (39.0-53.0) % MCV 84.4 (80.0-100.0) fL MCH 27.9 (25.0-35.0) pg MCHC 33.1 (31.0-37.0) g/dL RDW 13.4 (11.5-15.5) % Plt Count 218 (150-450) k/uL Neutrophils % 81 % Lymphocytes % 11 % Monocytes % 5 % Eosinophils % 0 % Basophils % 1 % Neutrophils # 7.0 (1.3-7.7) k/uL Lymphocytes # 0.9 L (1.0-4.8) k/uL Monocytes # 0.4 (0-1.0) k/uL Eosinophils # 0.0 (0-0.7) k/uL Basophils # 0.1 (0-0.2) k/uL Sodium 138 (137-145) mmol/L Potassium 3.8 (3.5-5.1) mmol/L Chloride 96 L (98-107) mmol/L Carbon Dioxide 30 (22-30) mmol/L Anion Gap 12 mmol/L BUN 14 (9-20) mg/dL Creatinine 0.80 (0.66-1.25) mg/dL Est GFR (CKD-EPI)AfAm >90 (>60 ml/min/1.73 sqM) Est GFR (CKD-EPI)NonAf >90 (>60 ml/min/1.73 sqM) Glucose 133 H (74-99) mg/dL Calcium 10.1 (8.4-10.2) mg/dL Total Bilirubin 0.7 (0.2-1.3) mg/dL AST 24 (17-59) U/L ALT 36 (21-72) U/L Alkaline Phosphatase 62 (38-126) U/L Total Protein 7.0 (6.3-8.2) g/dL Albumin 4.5 (3.5-5.0) g/dL Amylase 165 H (30-110) U/L Lipase 356 H (23-300) U/L Disposition Is patient prescribed a controlled substance at d/c from ED?: No <Natividad Galvez - Last Filed: 06/09/18 17:20> <Jacinto Corrales - Last Filed: 06/14/18 07:53> Clinical Impression: Nausea & vomiting Disposition: HOME SELF-CARE Condition: Good Instructions: Acute Nausea and Vomiting (ED) Referrals: Ehsan East MD [Primary Care Provider] - 1-2 days Marylou Cooper MD [STAFF PHYSICIAN] - 1-2 days
[2018-06-08] MEDS ORDERED: diphenhydrAMINE 50 MG/ML 1 ML VIAL ONE (23:14)
[2018-06-08] MEDS ORDERED: METOCLOPRAMIDE 5 MG/ML 2 ML VIAL ONE (23:14)
[2018-06-09 00:50] LABS: Basophils # (A) 0.1 k/uL (0-0.2); Basophils % (A) 1 %; Eosinophils % (A) 0 %; HCT 42.5 % (39.0-53.0); HGB 14.1 gm/dL (13.0-17.5); Lymphocytes # (A) 0.9 k/uL (1.0-4.8); Lymphocytes % (A) 11 %; MCH 27.9 pg (25.0-35.0); MCHC 33.1 g/dL (31.0-37.0); MCV 84.4 fL (80.0-100.0); Mean Platelet Volume 7.3; Monocytes # (A) 0.4 k/uL (0-1.0); Monocytes % (A) 5 %; Neutrophils % (A) 81 %; Platelet Count 218 k/uL (150-450); RBC 5.04 m/uL (4.30-5.90); RDW 13.4 % (11.5-15.5); WBC 8.7 k/uL (3.8-10.6)
[2018-06-09 03:58] LABS: ALT 36 U/L (21-72); AST 24 U/L (17-59); Albumin 4.5 g/dL (3.5-5.0); Alkaline Phosphatase 62 U/L (38-126); Amylase 165 U/L (30-110); Anion Gap 12 mmol/L; Blood Urea Nitrogen 14 mg/dL (9-20); Calcium 10.1 mg/dL (8.4-10.2); Carbon Dioxide 30 mmol/L (22-30); Chloride 96 mmol/L (98-107); Glucose 133 mg/dL (74-99); Lipase 356 U/L (23-300); Potassium 3.8 mmol/L (3.5-5.1); Sodium 138 mmol/L (137-145); Total Bilirubin 0.7 mg/dL (0.2-1.3)
--- NOTE | 2018-06-09 05:45 | CDI ---
Documentation Clarification OP Dear Natividad Daly [facility]- Please do addendum to ED report that provides Need Clinical impression & NS stop time start @2158 Thank you, Marla Dawn Plant Wrapper If you have any questions, please contact District Branch Manager at [phone] [facility]
== END 2018-06-09 00:05 | disposition home or self-care (01) ==
LOC: EC 19:37
DX: R11.2 Nausea with vomiting, unspecified (principal); Z76.0 Encounter for issue of repeat prescription; R19.7 Diarrhea, unspecified; F17.200 Nicotine dependence, unspecified, uncomplicated; Z88.0 Allergy status to penicillin
CPT/HCPCS: 99284; 96374; 96361; 36415; 80053; 82150; 83690; 85025; J1200; J2765; J2405

== ENCOUNTER 2018-07-21 07:51 | Emergency (ER) | payer OTHER ==
[2018-07-21 08:00] VITALS: BP 197/96; PULSE 75; RESP 18; TEMP 97.7
[2018-07-21 08:38] LABS: Basophils # (A) 0.1 k/uL (0-0.2); Basophils % (A) 1 %; Eosinophils # (A) 0.1 k/uL (0-0.7); Eosinophils % (A) 1 %; HGB 15.7 gm/dL (13.0-17.5); Hypochromasia Slight; Lymphocytes # (A) 1.3 k/uL (1.0-4.8); Lymphocytes % (A) 11 %; MCH 27.2 pg (25.0-35.0); MCHC 30.8 g/dL (31.0-37.0); MCV 88.5 fL (80.0-100.0); Mean Platelet Volume 8.2; Monocytes # (A) 0.7 k/uL (0-1.0); Monocytes % (A) 5 %; Neutrophils # (A) 9.6 k/uL (1.3-7.7); Neutrophils % (A) 80 %; Platelet Count 205 k/uL (150-450); RBC 5.76 m/uL (4.30-5.90); RDW 13.5 % (11.5-15.5)
[2018-07-21 08:41] LABS: Calcium 10.8 mg/dL (8.4-10.2); Potassium 4.6 mmol/L (3.5-5.1); Total Bilirubin 0.5 mg/dL (0.2-1.3); Total Protein 7.7 g/dL (6.3-8.2)
[2018-07-21] MEDS ORDERED: SODIUM CHLORIDE 0.9% 2,000 ML IV ONE (08:54)
[2018-07-21] MEDS ORDERED: KETOROLAC 30 MG/ML 1 ML VIAL IVP STA (08:54)
--- NOTE | 2018-07-21 08:55 | XR ---
EXAMINATION TYPE: XR KUB DATE OF EXAM: 07/21/2018 COMPARISON: 05/23/2018 INDICATION: Abdomen pain, nausea vomiting TECHNIQUE: Single view abdomen upright view FINDINGS: Small left pleural effusion is likely present. No free air is evident. No suspicious air-fluid levels or differential air-fluid levels are present. There appears to be a paucity of bowel gas present. Psoas margins are normal. No organomegaly is present. No suspicious calcifications evident. No significant interval change. IMPRESSION: 1. Nonspecific abdomen.
--- NOTE | 2018-07-21 08:56 | ED ---
Abdominal Pain HPI - General Chief Complaint: Abdominal Pain Stated Complaint: ABDOMINAL PAIN Time Seen by Provider: 07/21/18 08:50 Source: patient, RN notes reviewed Mode of arrival: wheelchair Limitations: no limitations - History of Present Illness Initial Comments: This a 57-year-old male presents emergency Department chief complaint abdominal discomfort, nausea vomiting diarrhea. Patient states symptoms started this morning when he woke up. He's had several loose bowel movements with normal color no melena or hematochezia. Patient denies any fever or chills. He states the pain is diffuse but more primarily in his upper abdomen. He's had several episodes of vomiting bilious no hematemesis or coffee-ground emesis. He denies any chest pain or shortness of breath. - Related Data Home Medications Medication Instructions Recorded Confirmed Bisoprol/Hydrochlorothiazide [Ziac 1 tab PO DAILY 07/21/18 07/21/18 2.5-6.25 MG] Previous Rx's Medication Instructions Recorded Dicyclomine [Bentyl] 20 mg PO TID #30 tablet 07/21/18 Ondansetron Odt [Zofran Odt] 4 mg PO Q8HR PRN #10 tab 07/21/18 Allergies Allergy/AdvReac Type Severity Reaction Status Date / Time Penicillins Allergy Rash/Hives/ Verified 07/21/18 09:08 Swelling Review of Systems ROS Statement: Those systems with pertinent positive or pertinent negative responses have been documented in the HPI. ROS Other: All systems not noted in ROS Statement are negative. Past Medical History Past Medical History: Asthma, Eye Disorder Additional Past Medical History / Comment(s): early glaucoma disease, gastritis past brken lt arm-casted, History of Any Multi-Drug Resistant Organisms: None Reported Past Surgical History: Orthopedic Surgery Additional Past Surgical History / Comment(s): lung surg as -inhaled a peice of angle hair used on a rolf tree", tooth extraction Past Anesthesia/Blood Transfusion Reactions: No Reported Reaction Past Psychological History: No Psychological Hx Reported Smoking Status: Current every day smoker Past Alcohol Use History: None Reported Past Drug Use History: Marijuana - Past Family History Mother Family Medical History: No Reported History Father Family Medical History: Liver Disease Additional Family Medical History / Comment(s): etoh- liver disease General Exam Limitations: no limitations General appearance: alert, in no apparent distress Head exam: Present: atraumatic, normocephalic, normal inspection ENT exam: Present: normal exam, mucous membranes moist Neck exam: Present: normal inspection, full ROM. Absent: tenderness, meningismus, lymphadenopathy Respiratory exam: Present: normal lung sounds bilaterally. Absent: respiratory distress, wheezes, rales, rhonchi, stridor Cardiovascular Exam: Present: regular rate, normal rhythm, normal heart sounds. Absent: systolic murmur, diastolic murmur, rubs, gallop, clicks GI/Abdominal exam: Present: soft, tenderness (Moderate mid abdominal tenderness) , normal bowel sounds. Absent: distended, guarding, rebound, rigid Neurological exam: Present: alert, oriented X3, CN II-XII intact Skin exam: Present: warm, dry, intact, normal color. Absent: rash Course Vital Signs 07/21/18 07:57 Temperature 97.7 F Pulse Rate 75 Respiratory 18 Rate Blood Pressure 197/96 O2 Sat by Pulse 99 Oximetry Medical Decision Making - Medical Decision Making 57-year-old male presents emergency from for nausea vomiting diarrhea. Patient' s symptoms consistent with gastroenteritis CT does show evidence of colitis. Patient CT also showed possible attenuation to the spleen though he's had no trauma he has no left upper quadrant abdominal pain. Patient will be discharged with close follow-up and return parameters were discussed. - Lab Data Result diagrams: 07/21/18 08:12 07/21/18 08:12 Lab Results 07/21/18 07/21/18 07/21/18 Range/Units 08:12 08:12 09:06 WBC 12.0 H (3.8-10.6) k/uL RBC 5.76 (4.30-5.90) m/uL Hgb 15.7 (13.0-17.5) gm/dL Hct 51.0 (39.0-53.0) % MCV 88.5 (80.0-100.0) fL MCH 27.2 (25.0-35.0) pg MCHC 30.8 L (31.0-37.0) g/dL RDW 13.5 (11.5-15.5) % Plt Count 205 (150-450) k/uL Neutrophils % 80 % Lymphocytes % 11 % Monocytes % 5 % Eosinophils % 1 % Basophils % 1 % Neutrophils # 9.6 H (1.3-7.7) k/uL Lymphocytes # 1.3 (1.0-4.8) k/uL Monocytes # 0.7 (0-1.0) k/uL Eosinophils # 0.1 (0-0.7) k/uL Basophils # 0.1 (0-0.2) k/uL Hypochromasia Slight Sodium 145 (137-145) mmol/L Potassium 4.6 (3.5-5.1) mmol/L Chloride 109 H (98-107) mmol/L Carbon Dioxide 26 (22-30) mmol/L Anion Gap 10 mmol/L BUN 15 (9-20) mg/dL Creatinine 1.13 (0.66-1.25) mg/dL Est GFR (CKD-EPI)AfAm 83 (>60 ml/min/1.73 sqM) Est GFR (CKD-EPI)NonAf 72 (>60 ml/min/1.73 sqM) Glucose 193 H (74-99) mg/dL Calcium 10.8 H (8.4-10.2) mg/dL Total Bilirubin 0.5 (0.2-1.3) mg/dL AST 24 (17-59) U/L ALT 27 (21-72) U/L Alkaline Phosphatase 67 (38-126) U/L Total Protein 7.7 (6.3-8.2) g/dL Albumin 5.0 (3.5-5.0) g/dL Amylase 173 H (30-110) U/L Lipase 321 H (23-300) U/L Serum Alcohol <10 mg/dL Disposition Clinical Impression: Gastroenteritis Disposition: HOME SELF-CARE Condition: Stable Instructions: Gastroenteritis (ED) Additional Instructions: Please return to the Emergency Department if symptoms worsen or any other concerns. Prescriptions: Dicyclomine [Bentyl] 20 mg PO TID #30 tablet Ondansetron Odt [Zofran Odt] 4 mg PO Q8HR PRN #10 tab PRN Reason: Nausea Is patient prescribed a controlled substance at d/c from ED?: No Referrals: Ehsan East MD [Primary Care Provider] - 1-2 days Time of Disposition: 10:35
--- NOTE | 2018-07-21 10:15 | CT ---
EXAMINATION TYPE: CT abdomen pelvis w con DATE OF EXAM: 07/21/2018 COMPARISON: 06/06/2018 and 09/06/2017 HISTORY: 57-year-old male with abdominal pain TECHNIQUE: Contiguous axial scanning of the abdomen and pelvis following administration of 100 ml Iso alexsandra 300 IV contrast. Delayed images through the kidneys and coronal/sagittal reconstructions perform ed. CT DLP: 338.7 mGycm Automated exposure control for dose reduction was used. FINDINGS: Heart normal size without pericardial effusion. Focal pleural parenchymal scarring at the posterior l eft base. Asymmetric elevation left hemidiaphragm likely due to the volume loss. Underlying emphysema tous change. Small hiatal hernia. No focal liver lesion or biliary ductal dilatation. Portal venous system is patent Gallbladder, right adrenal gland, kidneys, and pancreas shows no gross abnormality. 1 cm nonspecific nodule left adrenal gland, statistically represents a benign adrenal adenoma and is unchanged. There is a new wedge-shaped area of hypoattenuation in the anterior spleen is etiology is unclear. No dilated small bowel, free fluid, or free air. No mesenteric or retroperitoneal lymphadenopathy see n. Mild circumferential wall thickening of the colon appears to relate to nondistention. Proximal sigmoi d diverticulosis. 3. Some mild wall thickening of the distal ileum and mucosal enhancement, refer to coronal image 31 t hrough 36 and axial images 53 through 56. Bladder nondistended but shows circumferential wall thickening. No abnormal fluid collection in the p [place]. No evident pelvic lymphadenopathy. Bones: No osseous destructive process. IMPRESSION: 1. MILD WALL THICKENING AND MUCOSAL ENHANCEMENT OF THE TERMINAL ILEUM. QUESTIONABLE MILD WALL THICKEN ING OF SEGMENTS OF THE COLON. CORRELATE FOR POSSIBLE MILD NONSPECIFIC ENTEROCOLITIS. 2. NEW WEDGE-SHAPED AREA OF HYPOENHANCEMENT IN THE ANTERIOR SPLEEN COULD REPRESENT PERFUSION VARIATIO N. QUERY ANY TRAUMA THAT COULD HAVE LED TO A SPLENIC CONTUSION. SMALL INFARCT FROM EMBOLIC PHENOMENON IS ALSO POSSIBLE. 3. CIRCUMFERENTIAL WALL THICKENING OF THE BLADDER COULD RELATE TO CHRONIC BLADDER WALL HYPERTROPHY OR CYSTITIS. 4. SMALL HIATAL HERNIA. PLEURAL PARENCHYMAL SCARRING AND VOLUME LOSS AT THE LEFT BASE.
[2018-07-21] MEDS ORDERED: METOCLOPRAMIDE 5 MG/ML 2 ML VIAL IVP STA (10:32)
[2018-07-21] MEDS ORDERED: diphenhydrAMINE 50 MG/ML 1 ML VIAL IVP STA (10:32)
[2018-07-21 11:01] LABS: Appearance,Urine Clear (Clear); Bilirubin,Urine Negative (Negative); Blood,Urine Negative (Negative); Color,Urine Light Yellow; Glucose,Urine (UA) Trace (Negative); Ketones,Urine 1+ (Negative); Leukocyte Esterase,Urine Negative (Negative); Mucus,Urine Rare /hpf; Nitrite,Urine Negative (Negative); PH, Urine 6.5 (5.0-8.0); Protein,Urine 1+ (Negative); RBC,Urine 1 /hpf (0-5); Specific Gravity,Urine 1.034 (1.001-1.035); Squamous Epithelial Cell,Urine <1 /hpf (0-4); Urobilinogen,Urine <2.0 mg/dL (<2.0); WBC,Urine 1 /hpf (0-5)
== END 2018-07-21 11:05 | disposition home or self-care (01) ==
LOC: EC 07:51
DX: K52.9 Noninfective gastroenteritis and colitis, unspecified (principal); F17.200 Nicotine dependence, unspecified, uncomplicated; Z87.19 Personal history of other diseases of the digestive system; Z98.890 Other specified postprocedural states; Z79.899 Other long term (current) drug therapy; Z88.0 Allergy status to penicillin
CPT/HCPCS: 36415; 80053; 82150; 83690; 85025; 81001; 74018; 74177; 99284; 96374; 96375 ×2; 96361 ×2; G0480; J1200; J2765; J1885; Q9967; 80320

== ENCOUNTER 2018-07-24 09:09 | Inpatient (IN) | payer OTHER ==
[2018-07-24] MEDS ORDERED: SODIUM CHLORIDE 0.9% 1,000 ML IV STA (09:31)
[2018-07-24] MEDS ORDERED: DIPH,PERTUS(ACELL)TETVAC-LF 0.5 ML VIAL IM ONE (09:31)
[2018-07-24] MEDS ORDERED: ONDANSETRON 4 MG/2 ML VIAL IVP STA (09:31)
--- NOTE | 2018-07-24 09:47 | ED ---
General Adult HPI - General Chief complaint: Dizziness Stated complaint: dizziness Time Seen by Provider: 07/24/18 09:14 Source: patient, RN notes reviewed Mode of arrival: wheelchair Limitations: no limitations - History of Present Illness Initial comments: this a 57-year-old male presents emergency Department chief complaint of nausea vomiting dizziness. Patient states she seen in emergency department a few days ago for nausea vomiting diarrhea. Patient was diagnosed with gastroenteritis. Patient states that he still has intermittent vomiting. He states that he was in the bathtub this morning states that he stood up and was trying off when he then woke up on the ground. Patient states that he passed out in struck his face. Patient complains of laceration to his left cheek is unsure when his last tetanus was. Patient has no headache no neck pain this time. Denies any current chest pain or shortness of breath. Patient states she's had issues with gastrointestinal issues in the past in which she had to be admitted for. - Related Data Home Medications Medication Instructions Recorded Confirmed Bisoprol/Hydrochlorothiazide [Ziac 1 tab PO DAILY 07/21/18 07/21/18 2.5-6.25 MG] Previous Rx's Medication Instructions Recorded Dicyclomine [Bentyl] 20 mg PO TID #30 tablet 07/21/18 Ondansetron Odt [Zofran Odt] 4 mg PO Q8HR PRN #10 tab 07/21/18 Allergies Allergy/AdvReac Type Severity Reaction Status Date / Time Penicillins Allergy Rash/Hives/ Verified 07/24/18 09:14 Swelling Review of Systems ROS Statement: Those systems with pertinent positive or pertinent negative responses have been documented in the HPI. ROS Other: All systems not noted in ROS Statement are negative. Past Medical History Past Medical History: Asthma, Eye Disorder Additional Past Medical History / Comment(s): early glaucoma disease, gastritis past brken lt arm-casted, History of Any Multi-Drug Resistant Organisms: None Reported Past Surgical History: Orthopedic Surgery Additional Past Surgical History / Comment(s): lung surg as -inhaled a peice of angle hair used on a rolf tree", tooth extraction Past Anesthesia/Blood Transfusion Reactions: No Reported Reaction Past Psychological History: No Psychological Hx Reported Smoking Status: Current every day smoker Past Alcohol Use History: None Reported Past Drug Use History: Marijuana - Past Family History Mother Family Medical History: No Reported History Father Family Medical History: Liver Disease Additional Family Medical History / Comment(s): etoh- liver disease General Exam Limitations: no limitations General appearance: alert, in no apparent distress Head exam: Present: atraumatic, normocephalic, normal inspection Eye exam: Present: normal appearance, PERRL, EOMI. Absent: scleral icterus, conjunctival injection, periorbital swelling ENT exam: Present: normal exam, mucous membranes moist, TM's normal bilaterally , other (Left cheek there is a 2 cm L-shaped laceration) Neck exam: Present: normal inspection, full ROM. Absent: tenderness, meningismus, lymphadenopathy Respiratory exam: Present: normal lung sounds bilaterally. Absent: respiratory distress, wheezes, rales, rhonchi, stridor Cardiovascular Exam: Present: regular rate, normal rhythm, normal heart sounds. Absent: systolic murmur, diastolic murmur, rubs, gallop, clicks GI/Abdominal exam: Present: soft, normal bowel sounds. Absent: distended, tenderness, guarding, rebound, rigid Neurological exam: Present: alert, oriented X3, CN II-XII intact. Absent: motor sensory deficit Skin exam: Present: warm, dry, intact, normal color. Absent: rash Course Vital Signs 07/24/18 09:12 Temperature 98.1 F Pulse Rate 102 H Respiratory 20 Rate Blood Pressure 123/83 O2 Sat by Pulse 99 Oximetry EKG Findings - EKG Comments: EKG Findings:: EKG performed at 9:35 normal sinus rhythm with a rightward axis, there is biatrial enlargement and left ventricular hypertrophy with rate of 87 WI 116 QRS 108 QT/QTC 376/452 EKG compared to 04/04/2018 no major acute changes. Procedures - Laceration Laceration #1 Consent Obtained: verbal consent Time Out Performed: Yes Indication: laceration Site: face Size (cm): 2 Description: flap Depth: simple, single layer Anesthetic Used: lidocaine 1%, without epi Anesthesia Technique: local infiltration Amount (mls): 3 Pre-repair: wound explored, irrigated extensively, deep structures intact Type of Sutures: nylon Size of Sutures: 6-0 Number of Sutures: 4 Patient Tolerated Procedure: well, no complications Medical Decision Making - Medical Decision Making 57-year-old male presented for nausea vomiting syncope. Patient had repeat lab work CT the head and neck which show no acute abnormality. Patient is found to be severely dehydrated with acute kidney injury. Patient be admitted for this along with her syncopal episode. Patient will have repeat cardiac enzymes though believe that troponin is elevated secondary to dehydration and acute kidney injury. Patient has no current chest pain. - Lab Data Result diagrams: 07/24/18 09:46 07/24/18 09:46 Lab Results 07/24/18 07/24/18 07/24/18 Range/Units 09:46 09:46 09:46 WBC 10.3 (3.8-10.6) k/uL RBC 6.57 H (4.30-5.90) m/uL Hgb 18.1 H (13.0-17.5) gm/dL Hct 56.0 H (39.0-53.0) % MCV 85.2 (80.0-100.0) fL MCH 27.5 (25.0-35.0) pg MCHC 32.2 (31.0-37.0) g/dL RDW 12.9 (11.5-15.5) % Plt Count 195 (150-450) k/uL Neutrophils % 80 % Lymphocytes % 9 % Monocytes % 8 % Eosinophils % 0 % Basophils % 0 % Neutrophils # 8.2 H (1.3-7.7) k/uL Lymphocytes # 1.0 (1.0-4.8) k/uL Monocytes # 0.8 (0-1.0) k/uL Eosinophils # 0.0 (0-0.7) k/uL Basophils # 0.0 (0-0.2) k/uL Sodium 134 L (137-145) mmol/L Potassium 3.5 (3.5-5.1) mmol/L Chloride 81 L (98-107) mmol/L Carbon Dioxide 33 H (22-30) mmol/L Anion Gap 20 mmol/L BUN 45 H (9-20) mg/dL Creatinine 2.00 H (0.66-1.25) mg/dL Est GFR (CKD-EPI)AfAm 41 (>60 ml/min/1.73 sqM) Est GFR (CKD-EPI)NonAf 36 (>60 ml/min/1.73 sqM) Glucose 179 H (74-99) mg/dL Calcium 11.1 H (8.4-10.2) mg/dL Magnesium 2.5 H (1.6-2.3) mg/dL Total Bilirubin 1.4 H (0.2-1.3) mg/dL AST 29 (17-59) U/L ALT 37 (21-72) U/L Alkaline Phosphatase 64 (38-126) U/L Troponin I 0.043 H* (0.000-0.034) ng/mL Total Protein 8.7 H (6.3-8.2) g/dL Albumin 5.4 H (3.5-5.0) g/dL Lipase (23-300) U/L Serum Alcohol <10 mg/dL 07/24/18 Range/Units 09:46 WBC (3.8-10.6) k/uL RBC (4.30-5.90) m/uL Hgb (13.0-17.5) gm/dL Hct (39.0-53.0) % MCV (80.0-100.0) fL MCH (25.0-35.0) pg MCHC (31.0-37.0) g/dL RDW (11.5-15.5) % Plt Count (150-450) k/uL Neutrophils % % Lymphocytes % % Monocytes % % Eosinophils % % Basophils % % Neutrophils # (1.3-7.7) k/uL Lymphocytes # (1.0-4.8) k/uL Monocytes # (0-1.0) k/uL Eosinophils # (0-0.7) k/uL Basophils # (0-0.2) k/uL Sodium (137-145) mmol/L Potassium (3.5-5.1) mmol/L Chloride (98-107) mmol/L Carbon Dioxide (22-30) mmol/L Anion Gap mmol/L BUN (9-20) mg/dL Creatinine (0.66-1.25) mg/dL Est GFR (CKD-EPI)AfAm (>60 ml/min/1.73 sqM) Est GFR (CKD-EPI)NonAf (>60 ml/min/1.73 sqM) Glucose (74-99) mg/dL Calcium (8.4-10.2) mg/dL Magnesium (1.6-2.3) mg/dL Total Bilirubin (0.2-1.3) mg/dL AST (17-59) U/L ALT (21-72) U/L Alkaline Phosphatase (38-126) U/L Troponin I (0.000-0.034) ng/mL Total Protein (6.3-8.2) g/dL Albumin (3.5-5.0) g/dL Lipase 258 (23-300) U/L Serum Alcohol mg/dL Disposition Clinical Impression: Nausea & vomiting, SAMANTHA (acute kidney injury), Dehydration, Syncope Disposition: ADMITTED IP TO THIS HOSP Condition: Fair Referrals: Ehsan East MD [Primary Care Provider] - 1-2 days
[2018-07-24 10:13] LABS: Basophils % (A) 0 %; Eosinophils % (A) 0 %; HGB 18.1 gm/dL (13.0-17.5); Lymphocytes % (A) 9 %; MCH 27.5 pg (25.0-35.0); MCHC 32.2 g/dL (31.0-37.0); MCV 85.2 fL (80.0-100.0); Mean Platelet Volume 8.2; Monocytes # (A) 0.8 k/uL (0-1.0); Monocytes % (A) 8 %; Neutrophils # (A) 8.2 k/uL (1.3-7.7); Neutrophils % (A) 80 %; Platelet Count 195 k/uL (150-450); RBC 6.57 m/uL (4.30-5.90); RDW 12.9 % (11.5-15.5); WBC 10.3 k/uL (3.8-10.6)
[2018-07-24 10:18] LABS: ALT 37 U/L (21-72); AST 29 U/L (17-59); Albumin 5.4 g/dL (3.5-5.0); Alcohol <10 mg/dL; Alkaline Phosphatase 64 U/L (38-126); Anion Gap 20 mmol/L; Blood Urea Nitrogen 45 mg/dL (9-20); Calcium 11.1 mg/dL (8.4-10.2); Carbon Dioxide 33 mmol/L (22-30); Chloride 81 mmol/L (98-107); Glucose 179 mg/dL (74-99); Magnesium 2.5 mg/dL (1.6-2.3); Potassium 3.5 mmol/L (3.5-5.1); Sodium 134 mmol/L (137-145); Total Bilirubin 1.4 mg/dL (0.2-1.3); Total Protein 8.7 g/dL (6.3-8.2)
--- NOTE | 2018-07-24 10:31 | CT ---
EXAMINATION TYPE: CT brain [facility] DATE OF EXAM: 07/24/2018 COMPARISON: NONE HISTORY: Pain post fall CT DLP: 945.6 mGycm Automated exposure control for dose reduction was used. TECHNIQUE: CT scan of the head and cervical spine are performed without contrast. FINDINGS: BRAIN: Central structures are midline. There is no evidence of hydrocephalus. No acute focal lesion, mass effect or midline shift is seen. I do not see evidence of intracranial blood. There is mild mucoperiosteal thickening involving the ethmoid air cells. The bony calvarium is intact . IMPRESSION: 1. NO ACUTE INTRACRANIAL ABNORMALITY. 2. MINIMAL CHRONIC ETHMOIDAL SINUS MUCOSAL DISEASE. CERVICAL SPINE: There are emphysematous changes within the lungs. There is some effacement of the fossa of Rosenmuller on the right. Prevertebral soft tissues are othe rwise unremarkable. There is a mild retrograde listhesis of L3 on L4 and antegrade listhesis of L4 and L5. Atlantoaxial r elationships are normal. There is degenerative disc disease and hypertrophic spondylosis most marked at C5-6 but also present at C4-5 and C3-4. There is diffuse uncovertebral joint disease with relative sparing of C4-5. There is facet arthropathy on the left at C4-5. No definite protrusion is seen. No fracture is identified. IMPRESSION: 1. NO ACUTE OSSEOUS LESION. 2. DEGENERATIVE CHANGE. 3. EFFACEMENT OF THE FOSSA OF ROSENMULLER ON THE RIGHT. DIRECT VISUALIZATION WOULD BE SUGGESTED.
[2018-07-24] MEDS ORDERED: LIDOCAINE 1% INJ 10MG/ML (20 ML MDV) SQ ONE (10:36)
--- NOTE | 2018-07-24 10:42 | XR ---
EXAMINATION TYPE: XR chest 2V DATE OF EXAM: 07/24/2018 HISTORY: fall. REFERENCE: Previous study 04/07/2018. FINDINGS: There is an S-shaped scoliosis convex to the right in the thoracic region and to the left i n the lumbar region. Lung volumes are prominent. There is a small left pleural effusion. There is some scarring at the lef t lung base. The right lung is clear. The heart is not enlarged. IMPRESSION: 1. COPD. 2. SMALL LEFT EFFUSION. 3. SCARRING LEFT LUNG BASE.
[2018-07-24] MEDS: SODIUM CHLORIDE 0.9% 1,000 ML IV SCH ×2 (11:49→22:18)
[2018-07-24] MEDS: DICYCLOMINE 20 MG TAB PO SCH (20:41)
[2018-07-24 21:18] LABS: Appearance,Urine Clear (Clear); Bilirubin,Urine Negative (Negative); Blood,Urine Negative (Negative); Color,Urine Yellow; Glucose,Urine (UA) Negative (Negative); Hyaline Casts,Urine 11 /lpf (0-2); Ketones,Urine Trace (Negative); Leukocyte Esterase,Urine Negative (Negative); Mucus,Urine Rare /hpf; Nitrite,Urine Negative (Negative); PH, Urine 5.5 (5.0-8.0); Protein,Urine 1+ (Negative); RBC,Urine 1 /hpf (0-5); Specific Gravity,Urine 1.015 (1.001-1.035); Squamous Epithelial Cell,Urine <1 /hpf (0-4); Urobilinogen,Urine <2.0 mg/dL (<2.0); WBC,Urine 1 /hpf (0-5)
[2018-07-24 21:24] LABS: Amphetamine Screen,Urine Not Detected (NotDetected); Barbiturate Screen,Urine Not Detected (NotDetected); Benzodiazepines Screen,Urine Not Detected (NotDetected); Cocaine Screen,Urine Not Detected (NotDetected); Methadone Screen, Urine Not Detected (NotDetected); Opiate Screen,Urine Not Detected (NotDetected); Oxycodone Screen, Urine Not Detected (NotDetected); Phencyclidine Screen,Urine Not Detected (NotDetected); Tricyclic Antidepressant,Urine Not Detected (NotDetected); Urn Cannabinoid Scrn Detected (NotDetected)
[2018-07-24] MEDS: ONDANSETRON 4 MG/2 ML VIAL IVP PRN (21:26)
[2018-07-25 06:56] LABS: HCT 47.7 % (39.0-53.0); HGB 15.2 gm/dL (13.0-17.5); MCH 27.7 pg (25.0-35.0); MCHC 31.9 g/dL (31.0-37.0); MCV 86.8 fL (80.0-100.0); Mean Platelet Volume 8.7; Platelet Count 163 k/uL (150-450); RBC 5.49 m/uL (4.30-5.90); RDW 12.9 % (11.5-15.5)
[2018-07-25 07:09] LABS: Potassium 3.4 mmol/L (3.5-5.1)
[2018-07-25 07:10] LABS: Albumin 3.6 g/dL (3.5-5.0)
[2018-07-25] MEDS ORDERED: Potassium Replacement Protocol 1 EACH MISC MISCELLANE PRN (08:41)
[2018-07-25] MEDS: SODIUM CHLORIDE 0.9% 1,000 ML IV SCH ×2 (08:47→15:39)
[2018-07-25] MEDS: BISOPROLOL-HCTZ 2.5-6.25 MG 1 EACH TAB PO SCH (08:48)
[2018-07-25] MEDS: DICYCLOMINE 20 MG TAB PO SCH ×3 (08:48→20:25)
[2018-07-25] MEDS: PANTOPRAZOLE 40 MG/10 ML VIAL IV SCH (08:48)
[2018-07-25] MEDS: ONDANSETRON 4 MG/2 ML VIAL IVP PRN (08:51)
[2018-07-25 08:52] LABS: Anisocytosis (M) Present; Eosinophils # (M) 0.16 k/uL (0-0.7); Lymphocytes # (M) 2.32 k/uL (1.0-4.8); Neutrophils # (M) 4.72 k/uL (1.3-7.7); Neutrophils % (M) 59 %; Nucleated Red Blood Cells 0 /100 WBC (0-0); Poikilocytosis (M) Present; Total Cells Counted 100
[2018-07-25] MEDS: POTASSIUM CHLORIDE ER 20 MEQ TAB.ER PO SCH ×2 (08:52→12:05)
[2018-07-25 10:38] LABS: Amylase 186 U/L (30-110); Lipase 1175 U/L (23-300)
[2018-07-25] MEDS ORDERED: SODIUM CHLORIDE 0.9% 1,000 ML IV ONE (11:01)
--- NOTE | 2018-07-25 11:10 | P.HPIM ---
<Debbie Garvin A - Last Filed: 07/25/18 11:39> History of Present Illness H&P Date: 07/25/18 Chief Complaint: Nausea, vomiting, abdominal pain 57-year-old male who presented to the emergency room with a chief complaint of nausea, vomiting, and abdominal pain. The patient has had previous admissions to the hospital for similar symptoms in March 2018 and May 2018. He has also been seen in the emergency room in May 2018 and July 2018 for similar symptoms. The patient was thought to have cannabinoid hyperemesis syndrome and cessation of marijuana was recommended. However, the patient continues to smoke marijuana. Toxicology screen completed in ER is positive for marijuana. The patient states he began having nausea, vomiting, and abdominal pain . He came to the ER and was given IV fluids and antiemetics and discharged home. The patient presented back to the hospital yesterday for similar symptoms. The patient states he was continuing to experience nausea and vomiting and abdominal pain. He reports he went and took a long very hot shower to help alleviate his abdominal cramping and while he was in the shower he passed out and ended up on the floor. The patient does have a facial laceration to his left cheek. He reports nausea that is worse in the morning. He denies blood in his stool or change in bowel habits. Patient denies chest pain or pressure. Denies shortness of breath. Denies dizziness or lightheadedness. The patient has a history of asthma, macular degeneration, nicotine dependence, and marijuana use. The patient used to be a heavy alcohol drinker, but has not drank alcohol in many years. Chest x-ray: COPD, left small pleural effusion, scarring at the left lung base. Computed tomography scan brain and C-spine: Negative for an acute intercranial abnormality. Degenerative changes of the cervical spine. No acute osseous lesion. Effacement of the fossa of Rosenmuller on the right. Laboratory data upon admission reveals white count of 10.3. Hemoglobin 18.1. Platelet count 195. Sodium 134. Potassium 3.5. Chloride 81. Carbon dioxide 33. BUN 45. Creatinine 2.0. Glucose 179. Magnesium 2.5. Total bilirubin 1.4. AST 29. ALT 37. Lipase 258. Troponins: 0.043, 0.048, 0.033 Urinalysis reveals: 1+ proteinuria, trace ketones, rare mucus, hyaline casts 11. Toxicology urine screen is positive for cannabis. The patient was admitted to the hospital under the care of Dr. Styles. Review of Systems Those systems with pertinent positive or pertinent negative responses have been documented in the HPI Past Medical History Past Medical History: Asthma, Eye Disorder Additional Past Medical History / Comment(s): left eye macular degeneration History of Any Multi-Drug Resistant Organisms: None Reported Past Surgical History: Orthopedic Surgery Additional Past Surgical History / Comment(s): lung surg as -inhaled a piece of buddy hair used on a rolf tree", tooth extraction Past Anesthesia/Blood Transfusion Reactions: No Reported Reaction Past Psychological History: No Psychological Hx Reported Smoking Status: Current every day smoker Past Alcohol Use History: None Reported Additional Past Alcohol Use History / Comment(s): started smoking at age 16 smokes 1ppd Past Drug Use History: Marijuana Additional Drug Use History / Comment(s): occ use of marijuana - Past Family History Mother Family Medical History: No Reported History Father Family Medical History: Liver Disease Additional Family Medical History / Comment(s): etoh- liver disease Medications and Allergies Home Medications Medication Instructions Recorded Confirmed Type Bisoprol/Hydrochlorothiazide [Ziac 1 tab PO DAILY 07/21/18 07/24/18 History 2.5-6.25 MG] Dicyclomine [Bentyl] 20 mg PO TID #30 tablet 07/21/18 07/24/18 Rx Ondansetron Odt [Zofran Odt] 4 mg PO Q8HR PRN #10 tab 07/21/18 07/24/18 Rx Allergies Allergy/AdvReac Type Severity Reaction Status Date / Time Penicillins Allergy Rash/Hives/ Verified 07/24/18 11:15 Swelling Physical Exam Vitals: Vital Signs Temp Pulse Pulse Pulse Pulse Resp BP 07/25/18 08:00 97.5 F L 67 18 07/25/18 03:42 79 16 07/24/18 23:54 97.7 F 79 16 07/24/18 20:00 97.4 F L 70 18 07/24/18 16:00 97.2 F L 74 16 07/24/18 13:49 97.9 F 72 16 154/90 07/24/18 12:57 98.8 F 80 18 143/95 07/24/18 11:14 851 H 6 L 137/60 07/24/18 11:05 88 102 H 78 BP BP BP Pulse Ox 07/25/18 08:00 153/88 96 07/25/18 03:42 131/92 97 07/24/18 23:54 158/96 97 07/24/18 20:00 145/88 98 07/24/18 16:00 143/87 07/24/18 13:49 95 07/24/18 12:57 98 07/24/18 11:14 98 07/24/18 11:05 133/84 107/72 138/86 Intake and Output 07/24/18 07/25/18 07/25/18 22:59 06:59 14:59 Intake Total 240 240 240 Output Total 500 Balance -260 240 240 Intake: Oral 240 240 240 Output: Urine 500 Other: Voiding Method Urinal # Voids 1 GENERAL: This is a very thin 57-year-old male in no apparent distress at the time of examination. HEENT: Head is normocephalic. Laceration to left cheek, currently scabbed over. Pupils are equal, round, and reactive to light. Sclerae anicteric. Conjunctivae are clear. Mucus membranes of the mouth are moist. Neck is supple. RESPIRATORY: Clear to ausculation. No wheezes, rales, or rhonchi. No use of accessory muscles. Patient maintaining oxygen saturation greater than 92%. No chest wall tenderness is noted on palpation or with deep breathing. CARDIOVASCULAR: Regular rate and rhythm. S1 and S2 noted. No systolic or diastolic murmur auscultated. No JVD noted. No S3 or S4 noted. GASTROINTESTINAL: No distention noted. Abdomen soft and round. Normal active bowel sounds auscultated x 4 quadrants. Mild tenderness noted upon palpation of all four quadrants. INTEGUMENTARY: No cyanosis. No jaundice. No rashes noted. No cellulitis noted. EXTREMITIES: 2+ peripheral pulses. No evidence of peripheral edema. No calf tenderness noted. NEUROLOGIC: Cranial nerves II-XII intact. PSYCHIATRIC: Awake, alert, and oriented X 3. Appropriate affect. Results CBC & Chem 7: 07/25/18 06:39 07/25/18 06:39 Labs: Abnormal Lab Results - Last 24 Hours (Table) 07/24/18 07/24/18 07/24/18 Range/Units 09:46 16:35 21:00 Sodium (137-145) mmol/L Potassium (3.5-5.1) mmol/L Chloride (98-107) mmol/L Carbon Dioxide (22-30) mmol/L BUN (9-20) mg/dL Glucose (74-99) mg/dL Troponin I 0.043 H* 0.048 H* (0.000-0.034) ng/mL Total Protein (6.3-8.2) g/dL Urine Protein (Negative) Urine Ketones (Negative) Hyaline Casts (0-2) /lpf Urine Mucus (None) /hpf U Marijuana (THC) Screen Detected H (NotDetected) 07/24/18 07/25/18 Range/Units 21:00 06:39 Sodium 133 L (137-145) mmol/L Potassium 3.4 L (3.5-5.1) mmol/L Chloride 91 L (98-107) mmol/L Carbon Dioxide 33 H (22-30) mmol/L BUN 26 H (9-20) mg/dL Glucose 107 H (74-99) mg/dL Troponin I (0.000-0.034) ng/mL Total Protein 6.0 L (6.3-8.2) g/dL Urine Protein 1+ H (Negative) Urine Ketones Trace H (Negative) Hyaline Casts 11 H (0-2) /lpf Urine Mucus Rare H (None) /hpf U Marijuana (THC) Screen (NotDetected) Thrombosis Risk Factor Assmnt - Choose All That Apply Each Factor Represents 1 point: Age 41-60 years Thrombosis Risk Factor Assessment Total Risk Factor Score: 1 Thrombosis Risk Factor Assessment Level: Low Risk Assessment and Plan Plan: ASSESSMENT: Nausea, vomiting, and abdominal pain suspected secondary to cannabinoid hyperemesis syndrome. Can not rule out pancreatitis as amylase and lipase are now elevated. 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 Irizarry Clear liquid diet Continue IV fluids. Increase to 125cc/hr 0.9 NS 1L fluid bolus Replace potassium No cardiology consult at this time per Dr. Styles [place] meds as appropriate Monitor labs GI prophylaxis: Protonix 40 mg IV Daily DVT prophylaxis: SCDs to bilateral lower extremities Monitor vital signs and address as appropriate Discharge planning: Patient to return home when stable Further recommendations pending patient's course Nurse practitioner note has been reviewed by physician. Signing provider agrees with the documented findings, assessment, and plan of care. <Kenneth Styles Jr - Last Filed: 07/25/18 16:53> Physical Exam Osteopathic Statement: *. No significant issues noted on an osteopathic structural exam other than those noted in the History and Physical/Consult. Vitals: Vital Signs Temp Pulse Resp BP Pulse Ox 07/25/18 12:00 98.2 F 51 L 18 123/74 96 07/25/18 08:00 97.5 F L 67 18 153/88 96 07/25/18 03:42 79 16 131/92 97 07/24/18 23:54 97.7 F 79 16 158/96 97 07/24/18 20:00 97.4 F L 70 18 145/88 98 Intake and Output 07/25/18 07/25/18 07/25/18 06:59 14:59 22:59 Intake Total 240 360 Balance 240 360 Intake: Oral 240 360 Other: Voiding Method Urinal # Voids 1 1 Results CBC & Chem 7: 07/25/18 06:39 07/25/18 06:39 Labs: Abnormal Lab Results - Last 24 Hours (Table) 07/24/18 07/24/18 07/24/18 Range/Units 16:35 21:00 21:00 Sodium (137-145) mmol/L Potassium (3.5-5.1) mmol/L Chloride (98-107) mmol/L Carbon Dioxide (22-30) mmol/L BUN (9-20) mg/dL Glucose (74-99) mg/dL Troponin I 0.048 H* (0.000-0.034) ng/mL Total Protein (6.3-8.2) g/dL Amylase (30-110) U/L Lipase (23-300) U/L Urine Protein 1+ H (Negative) Urine Ketones Trace H (Negative) Hyaline Casts 11 H (0-2) /lpf Urine Mucus Rare H (None) /hpf U Marijuana (THC) Screen Detected H (NotDetected) 07/25/18 07/25/18 Range/Units 06:39 06:39 Sodium 133 L (137-145) mmol/L Potassium 3.4 L (3.5-5.1) mmol/L Chloride 91 L (98-107) mmol/L Carbon Dioxide 33 H (22-30) mmol/L BUN 26 H (9-20) mg/dL Glucose 107 H (74-99) mg/dL Troponin I (0.000-0.034) ng/mL Total Protein 6.0 L (6.3-8.2) g/dL Amylase 186 H (30-110) U/L Lipase 1175 H (23-300) U/L Urine Protein (Negative) Urine Ketones (Negative) Hyaline Casts (0-2) /lpf Urine Mucus (None) /hpf U Marijuana (THC) Screen (NotDetected)
--- NOTE | 2018-07-25 17:42 | P.CONS ---
History of Present Illness - Reason for Consult Consult date: 07/25/18 Nausea and vomiting Requesting physician: Ehsan East - Chief Complaint Nausea and vomiting - History of Present Illness The patient is a 57-year-old male with a known history of asthma and multiple presentations to the hospital with intractable nausea and vomiting. The patient has required admission in March and May of this year for episodes of nausea and vomiting. In the past the patient has been told that this is likely cannabinoid hyperemesis syndrome secondary to his use of marijuana. The patient reports that he stopped using marijuana for one month and had no episodes but is unconvinced as he has greatly decreased his use of the drug and last smoked marijuana approximately 2 weeks ago. He has antiemetic therapy at home reports that when he is vomiting he is unable to use it. He denies any change in bowel habits, diarrhea, melena, or hematochezia. On this admission the patient who often takes hot showers or uses heating pads on the stomach during the episodes with great relief was in the shower when he passed out. He is been evaluated with imaging of his head. Currently he is lying in bed with no complaints. He was unable to tolerate a regular diet yesterday but was able to tolerate clear liquids today. Colonoscopy 04/24/16 was significant for diverticulosis and a colonic polyp. Review of Systems REVIEW OF SYSTEMS: CARDIOPULMONARY: Denies chest pain or shortness of breath. GENITOURINARY: No dysuria or hematuria. MUSCULOSKELETAL: No weakness reported. SKIN: Denies any new rashes or lesions, jaundice or pallor. PSYCHIATRIC: Denies any depression or anxiety. NEUROLOGY: Denies headache, denies any new focal deficits. EARS: No tinnitus, discharge or new hearing loss. NOSE: No discharge or congestion. EYES: No change in vision. CONSTITUTIONAL: No recent weight loss. No fever, chills, night sweats. Past Medical History Past Medical History: Asthma, Eye Disorder Additional Past Medical History / Comment(s): left eye macular degeneration History of Any Multi-Drug Resistant Organisms: None Reported Past Surgical History: Orthopedic Surgery Additional Past Surgical History / Comment(s): lung surg as -inhaled a piece of buddy hair used on a rolf tree", tooth extraction Past Anesthesia/Blood Transfusion Reactions: No Reported Reaction Past Psychological History: No Psychological Hx Reported Smoking Status: Current every day smoker Past Alcohol Use History: None Reported Additional Past Alcohol Use History / Comment(s): started smoking at age 16 smokes 1ppd Past Drug Use History: Marijuana Additional Drug Use History / Comment(s): occ use of marijuana - Past Family History Mother Family Medical History: No Reported History Father Family Medical History: Liver Disease Additional Family Medical History / Comment(s): etoh- liver disease Medications and Allergies Home Medications Medication Instructions Recorded Confirmed Type Bisoprol/Hydrochlorothiazide [Ziac 1 tab PO DAILY 07/21/18 07/24/18 History 2.5-6.25 MG] Dicyclomine [Bentyl] 20 mg PO TID #30 tablet 07/21/18 07/24/18 Rx Ondansetron Odt [Zofran Odt] 4 mg PO Q8HR PRN #10 tab 07/21/18 07/24/18 Rx Allergies Allergy/AdvReac Type Severity Reaction Status Date / Time Penicillins Allergy Rash/Hives/ Verified 07/24/18 11:15 Swelling Physical Exam Vitals: Vital Signs Temp Pulse Resp BP Pulse Ox 07/25/18 16:00 99.5 F 62 18 127/67 97 07/25/18 12:00 98.2 F 51 L 18 123/74 96 07/25/18 08:00 97.5 F L 67 18 153/88 96 07/25/18 03:42 79 16 131/92 97 07/24/18 23:54 97.7 F 79 16 158/96 97 07/24/18 20:00 97.4 F L 70 18 145/88 98 Intake and Output 07/25/18 07/25/18 07/25/18 06:59 14:59 22:59 Intake Total 240 360 Balance 240 360 Intake: Oral 240 360 Other: Voiding Method Urinal Urinal # Voids 1 1 On physical examination, patient appears comfortable in no apparent distress. HEAD: Normocephalic, atraumatic. EYES: No scleral icterus. No conjunctival injection. MOUTH: No lesions, tongue midline. NECK: Trachea midline, no gross abnormalities. CHEST: Clear to auscultation with with some expiratory wheezing appreciated in all lung haskins. HEART: Regular rate and rhythm. ABDOMEN: Soft. Bowel sounds are positive. No organomegaly. No guarding or rigidity. EXTREMITIES: No pedal edema. SKIN: No rashes, no jaundice. NEUROLOGIC: Alert and oriented x3. No focal deficits. Results CBC & Chem 7: 07/25/18 06:39 07/25/18 06:39 Labs: Abnormal Lab Results - Last 24 Hours (Table) 07/24/18 07/24/18 07/24/18 Range/Units 16:35 21:00 21:00 Sodium (137-145) mmol/L Potassium (3.5-5.1) mmol/L Chloride (98-107) mmol/L Carbon Dioxide (22-30) mmol/L BUN (9-20) mg/dL Glucose (74-99) mg/dL Troponin I 0.048 H* (0.000-0.034) ng/mL Total Protein (6.3-8.2) g/dL Amylase (30-110) U/L Lipase (23-300) U/L Urine Protein 1+ H (Negative) Urine Ketones Trace H (Negative) Hyaline Casts 11 H (0-2) /lpf Urine Mucus Rare H (None) /hpf U Marijuana (THC) Screen Detected H (NotDetected) 07/25/18 07/25/18 Range/Units 06:39 06:39 Sodium 133 L (137-145) mmol/L Potassium 3.4 L (3.5-5.1) mmol/L Chloride 91 L (98-107) mmol/L Carbon Dioxide 33 H (22-30) mmol/L BUN 26 H (9-20) mg/dL Glucose 107 H (74-99) mg/dL Troponin I (0.000-0.034) ng/mL Total Protein 6.0 L (6.3-8.2) g/dL Amylase 186 H (30-110) U/L Lipase 1175 H (23-300) U/L Urine Protein (Negative) Urine Ketones (Negative) Hyaline Casts (0-2) /lpf Urine Mucus (None) /hpf U Marijuana (THC) Screen (NotDetected) Comments: Prior colonoscopy noted and significant for polypectomy and diverticulosis. Assessment and Plan (1) Nausea & vomiting Narrative/Plan: Patient with multiple episodes of intractable nausea and vomiting, twice requiring hospitalization this year with multiple other visits to the emergency department. The patient has a known history of marijuana use and has been told that this likely represents cannabinoid hyperemesis syndrome. The patient also states that the episodes are better when he is able to get into a hot shower or use a heating pad on his stomach, in addition he had no episodes during one month of abstinence from marijuana. He still unconvinced of the relation between the drug and his symptoms. Other possible etiologies, although less likely include gastric motility impairment, peptic ulcer disease, severe esophagitis/gastritis or other etiology. Current Visit: Yes Status: Acute Code(s): R11.2 - NAUSEA WITH VOMITING, UNSPECIFIED SNOMED Code(s): 37842840 (2) Diverticulosis Narrative/Plan: On prior colonoscopy. Current Visit: Yes Status: Acute Code(s): K57.90 - DVRTCLOS OF INTEST, PART UNSP, W/O PERF OR ABSCESS W/O BLEED SNOMED Code(s): 053634127 (3) Colon adenoma Narrative/Plan: Polypectomy on prior colonoscopy. Current Visit: Yes Status: Acute Code(s): D12.6 - BENIGN NEOPLASM OF COLON, UNSPECIFIED SNOMED Code(s): 470283290 Plan: Supportive care Continue liquid diet Continue antiemetic therapy as needed Nothing by mouth after midnight Plan for EGD in the morning Extensive discussion on the patient's symptoms, and the characteristic in quality is of low symptoms and the relation to marijuana use. The patient is unconvinced with a link and would like investigation with EGD to rule out any other pathology which could be contributing to his symptoms. Thank you for allowing us to participate in the care of this patient we will continue to follow
[2018-07-26] MEDS: SODIUM CHLORIDE 0.9% 1,000 ML IV SCH ×3 (00:44→15:23)
[2018-07-26] MEDS ORDERED: Potassium Replacement Protocol 1 EACH MISC MISCELLANE PRN (07:35)
[2018-07-26] MEDS: PANTOPRAZOLE 40 MG/10 ML VIAL IV SCH (07:51)
[2018-07-26 08:01] LABS: ALT 26 U/L (21-72); AST 17 U/L (17-59); Albumin 2.8 g/dL (3.5-5.0); Alkaline Phosphatase 33 U/L (38-126); Amylase 83 U/L (30-110); Anion Gap 4 mmol/L; Blood Urea Nitrogen 14 mg/dL (9-20); Calcium 8.3 mg/dL (8.4-10.2); Carbon Dioxide 30 mmol/L (22-30); Chloride 102 mmol/L (98-107); Glucose 90 mg/dL (74-99); Lipase 139 U/L (23-300); Potassium 4.3 mmol/L (3.5-5.1); Sodium 136 mmol/L (137-145)
[2018-07-26] MEDS: POTASSIUM CHLORIDE 10 MEQ in WATER FOR INJECTION 1 100ML.BAG IVPB SCH ×4 (08:51→13:05)
--- NOTE | 2018-07-26 09:47 | P.PN ---
Subjective Progress Note Date: 07/26/18 57-year-old male who presented to the emergency room with a chief complaint of nausea, vomiting, and abdominal pain. The patient has had previous admissions to the hospital for similar symptoms in March 2018 and May 2018. He has also been seen in the emergency room in May 2018 and July 2018 for similar symptoms. The patient was thought to have cannabinoid hyperemesis syndrome and cessation of marijuana was recommended. However, the patient continues to smoke marijuana. Toxicology screen completed in ER is positive for marijuana. The patient states he began having nausea, vomiting, and abdominal pain . He came to the ER and was given IV fluids and antiemetics and discharged home. The patient presented back to the hospital yesterday for similar symptoms. The patient states he was continuing to experience nausea and vomiting and abdominal pain. He reports he went and took a long very hot shower to help alleviate his abdominal cramping and while he was in the shower he passed out and ended up on the floor. The patient does have a facial laceration to his left cheek. He reports nausea that is worse in the morning. He denies blood in his stool or change in bowel habits. Patient denies chest pain or pressure. Denies shortness of breath. Denies dizziness or lightheadedness. The patient has a history of asthma, macular degeneration, nicotine dependence, and marijuana use. The patient used to be a heavy alcohol drinker, but has not drank alcohol in many years. Chest x-ray: COPD, left small pleural effusion, scarring at the left lung base. Computed tomography scan brain and C-spine: Negative for an acute intercranial abnormality. Degenerative changes of the cervical spine. No acute osseous lesion. Effacement of the fossa of Rosenmuller on the right. Laboratory data upon admission reveals white count of 10.3. Hemoglobin 18.1. Platelet count 195. Sodium 134. Potassium 3.5. Chloride 81. Carbon dioxide 33. BUN 45. Creatinine 2.0. Glucose 179. Magnesium 2.5. Total bilirubin 1.4. AST 29. ALT 37. Lipase 258. Troponins: 0.043, 0.048, 0.033 Urinalysis reveals: 1+ proteinuria, trace ketones, rare mucus, hyaline casts 11. Toxicology urine screen is positive for cannabis. The patient was admitted to the hospital under the care of Dr. Styles. 07/26/2018 Patient was evaluated by Dr. Irizarry yesterday. He is NPO and scheduled for EGD today. Patient denies further nausea or vomiting. Amylase and Lipase were elevated yesterday, although lipase was normal on admission. Amylase and Lipase are WNL today. Potassium is 4.3 today after receiving supplementation yesterday. Patient denies SOB. Denies chest pain or pressure. Objective - Vital Signs Vital signs: Vital Signs Temp 99.1 F 07/25/18 20:00 Pulse 48 L 07/26/18 05:58 Resp 16 07/26/18 05:58 BP 146/77 07/26/18 05:58 Pulse Ox 98 07/26/18 05:58 Intake & Output 07/25/18 07/26/18 07/26/18 18:59 06:59 18:59 Intake Total 600 360 Balance 600 360 Weight 53.7 kg Intake: Oral 600 360 Other: Voiding Method Urinal Toilet Urinal # Voids 1 1 - Exam GENERAL: This is a very thin 57-year-old male in no apparent distress at the time of examination. HEENT: Head is normocephalic. Laceration to left cheek, currently scabbed over. Pupils are equal, round, and reactive to light. Sclerae anicteric. Conjunctivae are clear. Mucus membranes of the mouth are moist. Neck is supple. RESPIRATORY: Clear to ausculation. No wheezes, rales, or rhonchi. No use of accessory muscles. Patient maintaining oxygen saturation greater than 92%. No chest wall tenderness is noted on palpation or with deep breathing. CARDIOVASCULAR: Regular rate and rhythm. S1 and S2 noted. No systolic or diastolic murmur auscultated. No JVD noted. No S3 or S4 noted. GASTROINTESTINAL: No distention noted. Abdomen soft. Normal active bowel sounds auscultated x 4 quadrants. Mild tenderness noted upon palpation of all four quadrants. INTEGUMENTARY: No cyanosis. No jaundice. No rashes noted. No cellulitis noted. EXTREMITIES: 2+ peripheral pulses. No evidence of peripheral edema. No calf tenderness noted. NEUROLOGIC: Cranial nerves II-XII intact. PSYCHIATRIC: Awake, alert, and oriented X 3. Appropriate affect. - Labs CBC & Chem 7: 07/25/18 06:39 07/26/18 07:23 Labs: Abnormal Lab Results - Last 24 Hours (Table) 07/25/18 07/26/18 Range/Units 06:39 07:23 Sodium 136 L (137-145) mmol/L Calcium 8.3 L (8.4-10.2) mg/dL Alkaline Phosphatase 33 L (38-126) U/L Total Protein 5.0 L (6.3-8.2) g/dL Albumin 2.8 L (3.5-5.0) g/dL Amylase 186 H (30-110) U/L Lipase 1175 H (23-300) U/L Assessment and Plan Plan: ASSESSMENT: Nausea, vomiting, and abdominal pain suspected secondary to cannabinoid hyperemesis syndrome. Can not rule out pancreatitis as amylase and lipase are were elevated this admission, pancreatic enzymes now WNL. 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 Irizarry on consult. Appreciate recommendations and input NPO. Clear liquid after EGD then advance as tolerated Patient scheduled for EGD today Obtain abdominal US No cardiology consult at this time per Dr. Styles Home meds as appropriate Monitor labs GI prophylaxis: Protonix 40 mg IV Daily DVT prophylaxis: SCDs to bilateral lower extremities Monitor vital signs and address as appropriate Discharge planning: Patient to return home when stable Further recommendations pending patient's course Nurse practitioner note has been reviewed by physician. Signing provider agrees with the documented findings, assessment, and plan of care.
--- NOTE | 2018-07-26 11:00 | US ---
EXAMINATION TYPE: US abdomen complete DATE OF EXAM: 07/26/2018 COMPARISON: CT 2018 CLINICAL HISTORY: N/V, r/o gallbladder or pancreas involvement. N/V/D x 5 days, exam done portable. EXAM MEASUREMENTS: Liver Length: 15.7 cm Gallbladder Wall: 0.2 cm CBD: 0.6 cm Spleen: 9.8 cm Right Kidney: 11.7 x 4.7 x 5.7 cm Left Kidney: 10.7 x 4.2 x 4.5 cm Pancreas: visualized portions wnl, limited by overlying midline bowel gas Liver: wnl Gallbladder: wnl Evidence for sonographic Liang's sign: no CBD: measures in upper limits of normal at 0.6cm, limited by overlying bowel gas Spleen: wnl, hypoattenuation area seen on recent CT not seen on today's exam Right Kidney: wnl Left Kidney: wnl Upper IVC: wnl Abd Aorta: wnl IMPRESSION: 1. Abnormalities seen within the spleen by previous CT scan is not clearly depicted by ultrasound. Co rrelate with the CT scan report.
[2018-07-26] MEDS ORDERED: IV FLUID CONTINUATION 1,000 ML IV ONE ×2 (13:46)
[2018-07-26] MEDS: LACTATED RINGERS 1,000 ML IV SCH (15:07)
[2018-07-26] MEDS: DICYCLOMINE 20 MG TAB PO SCH ×3 (15:07→22:11)
[2018-07-26] MEDS: BISOPROLOL-HCTZ 2.5-6.25 MG 1 EACH TAB PO SCH (15:09)
--- NOTE | 2018-07-26 20:19 | P.PCN ---
Date of Procedure: 07/26/18 Description of Procedure: BRIEF HISTORY: Patient is a 57-year-old, pleasant, male who presents back to the hospital with complaints of intractable nausea and vomiting. The patient has had 2 admissions earlier in the year for similar complaints. On this admission he was found to be dehydrated and has been treated symptomatically. Ultrasound performed on this admission was negative for any biliary pathology. PROCEDURE PERFORMED: Esophagogastroduodenoscopy with cold biopsy. PREOPERATIVE DIAGNOSIS: Intractable nausea and vomiting, epigastric abdominal pain. ESTIMATED BLOOD LOSS: Minimal. IV sedation per anesthesia. PROCEDURE: After informed consent was obtained, the patient was brought into the endoscopy unit. IV sedation was administered by Anesthesia under continuous monitoring. Initially the Olympus GIF-180 video endoscope was inserted into the mouth. Esophagus intubated without any difficulty. It was gradually advanced into the stomach and duodenum and carefully examined. The bulb and the second part of the duodenum appeared normal. The scope at this time was withdrawn to the stomach, adequately insufflated with air, and upon careful examination, mucosa of the antrum, body, cardia and the fundus appeared grossly normal. Mild scattered erythema of the antrum and body of the stomach suggestive of gastritis was noted and biopsies of the antrum and body were taken. The scope was then withdrawn into the esophagus. The GE junction was located at 38 cm from the incisors. The esophagus appeared normal. There were no erosions or ulcerations seen and the patient tolerated the procedure well. IMPRESSION: 1. Gastritis of the antrum and body, biopsied. 2. No other gross abnormalities to explain the patient's symptoms of recurrent intractable nausea and vomiting. RECOMMENDATIONS: The findings of this examination were discussed with the patient and his . At this time would await findings of pathology from biopsies. Continue to treat patient's symptoms. Okay for diet as tolerated. Again stressed to the patient the need for prolonged sensation of cannabinoid use as it can be associated with hyperemesis syndrome.
[2018-07-27] MEDS: ACETAMINOPHEN TAB 325 MG TAB PO PRN ×3 (06:21→17:08)
[2018-07-27] MEDS: BISOPROLOL-HCTZ 2.5-6.25 MG 1 EACH TAB PO SCH (06:23)
[2018-07-27] MEDS: SODIUM CHLORIDE 0.9% 1,000 ML IV SCH ×3 (06:24→17:06)
[2018-07-27] MEDS: PANTOPRAZOLE 40 MG/10 ML VIAL IV SCH (07:44)
[2018-07-27] MEDS: DICYCLOMINE 20 MG TAB PO SCH ×3 (07:44→22:06)
[2018-07-27] MEDS: LACTATED RINGERS 1,000 ML IV SCH (07:45)
[2018-07-27 09:31] LABS: Basophils # (A) 0.1 k/uL (0-0.2); Basophils % (A) 1 %; Eosinophils # (A) 0.1 k/uL (0-0.7); Eosinophils % (A) 2 %; HCT 40.3 % (39.0-53.0); HGB 12.6 gm/dL (13.0-17.5); Hypochromasia Slight; Lymphocytes # (A) 1.3 k/uL (1.0-4.8); Lymphocytes % (A) 17 %; MCH 28.2 pg (25.0-35.0); MCHC 31.4 g/dL (31.0-37.0); MCV 89.9 fL (80.0-100.0); Mean Platelet Volume 8.5; Monocytes # (A) 0.6 k/uL (0-1.0); Monocytes % (A) 8 %; Neutrophils # (A) 5.3 k/uL (1.3-7.7); Neutrophils % (A) 69 %; Platelet Count 146 k/uL (150-450); RBC 4.48 m/uL (4.30-5.90); RDW 12.8 % (11.5-15.5); WBC 7.7 k/uL (3.8-10.6)
[2018-07-27 09:50] LABS: ALT 29 U/L (21-72); AST 21 U/L (17-59); Albumin 2.8 g/dL (3.5-5.0); Alkaline Phosphatase 33 U/L (38-126); Anion Gap 6 mmol/L; Blood Urea Nitrogen 10 mg/dL (9-20); Calcium 8.3 mg/dL (8.4-10.2); Carbon Dioxide 25 mmol/L (22-30); Chloride 104 mmol/L (98-107); Glucose 186 mg/dL (74-99); Lipase 180 U/L (23-300); Potassium 4.5 mmol/L (3.5-5.1); Sodium 135 mmol/L (137-145); Total Bilirubin 0.5 mg/dL (0.2-1.3); Total Protein 4.8 g/dL (6.3-8.2)
[2018-07-27 10:27] LABS: Amylase 434 U/L (30-110)
[2018-07-27] MEDS ORDERED: SODIUM CHLORIDE 0.9% 500 ML IV ONE (10:29)
--- NOTE | 2018-07-27 10:53 | CT ---
EXAMINATION TYPE: CT facial bones w con DATE OF EXAM: 07/27/2018 COMPARISON: None HISTORY: jaw pain CT DLP: 879.4 mGycm Automated exposure control for dose reduction was used. CONTRAST: CT scan of the facial bones is performed with IV Contrast, patient injected with 100mL mL of Isovue 3 00. TECHNIQUE: CT scan of the sinuses is performed without contrast, axial images are obtained, coronal r eformatted images are also reviewed. FINDINGS: Partially imaged fluid density noted adjacent to the left submandibular gland which may ref lect posttraumatic or infectious change. No definite drainable collection. Area of abnormal attenuati on measures 3.1 x 3.7 cm and is again partially imaged. No displaced fracture identified within the [id number]. Facial bones are intact. No air-fluid levels seen within the paranasal sinuses. IMPRESSION: 1. Fluid density adjacent to the left submandibular gland which is partially imaged may be related to infectious change versus posttraumatic change and there is such a history. No drainable collection i s seen at this time.
[2018-07-27] MEDS ORDERED: LEVOFLOXACIN 500MG-D5W PMX 500 MG in DEXTROSE/WATER 1 100ML.BAG IVPB STA (11:24)
--- NOTE | 2018-07-27 11:45 | P.PN ---
Subjective Progress Note Date: 07/27/18 57-year-old male who presented to the emergency room with a chief complaint of nausea, vomiting, and abdominal pain. The patient has had previous admissions to the hospital for similar symptoms in March 2018 and May 2018. He has also been seen in the emergency room in May 2018 and July 2018 for similar symptoms. The patient was thought to have cannabinoid hyperemesis syndrome and cessation of marijuana was recommended. However, the patient continues to smoke marijuana. Toxicology screen completed in ER is positive for marijuana. The patient states he began having nausea, vomiting, and abdominal pain . He came to the ER and was given IV fluids and antiemetics and discharged home. The patient presented back to the hospital yesterday for similar symptoms. The patient states he was continuing to experience nausea and vomiting and abdominal pain. He reports he went and took a long very hot shower to help alleviate his abdominal cramping and while he was in the shower he passed out and ended up on the floor. The patient does have a facial laceration to his left cheek. He reports nausea that is worse in the morning. He denies blood in his stool or change in bowel habits. Patient denies chest pain or pressure. Denies shortness of breath. Denies dizziness or lightheadedness. The patient has a history of asthma, macular degeneration, nicotine dependence, and marijuana use. The patient used to be a heavy alcohol drinker, but has not drank alcohol in many years. Chest x-ray: COPD, left small pleural effusion, scarring at the left lung base. Computed tomography scan brain and C-spine: Negative for an acute intercranial abnormality. Degenerative changes of the cervical spine. No acute osseous lesion. Effacement of the fossa of Rosenmuller on the right. Laboratory data upon admission reveals white count of 10.3. Hemoglobin 18.1. Platelet count 195. Sodium 134. Potassium 3.5. Chloride 81. Carbon dioxide 33. BUN 45. Creatinine 2.0. Glucose 179. Magnesium 2.5. Total bilirubin 1.4. AST 29. ALT 37. Lipase 258. Troponins: 0.043, 0.048, 0.033 Urinalysis reveals: 1+ proteinuria, trace ketones, rare mucus, hyaline casts 11. Toxicology urine screen is positive for cannabis. The patient was admitted to the hospital under the care of Dr. Styles. 07/26/2018 Patient was evaluated by Dr. Irizarry yesterday. He is NPO and scheduled for EGD today. Patient denies further nausea or vomiting. Amylase and Lipase were elevated yesterday, although lipase was normal on admission. Amylase and Lipase are WNL today. Potassium is 4.3 today after receiving supplementation yesterday. Patient denies SOB. Denies chest pain or pressure. 07/28/2018 Patient seen and examined at the bedside. Patient underwent EGD yesterday which revealed gastritis of the antrum and body. Biopsy was taken, results are pending. Dr. Irizarry stressed the importance of cessation of marijuana use. Patient reports new onset of left jaw/cheek swelling and pain over the last 12 hours. Patient does have poor dentition but no obvious abscess visualized. Patient denies radiation of pain into jaw or neck. Denies dental pain. Patient did fall in the shower striking his face on Wednesday but no obvious trauma to his jaw was noted at that time. He does have stitches to his left upper cheek. Lab work from this morning is pending. Patient has been afebrile. Objective - Vital Signs Vital signs: Vital Signs Temp 97.5 F L 07/27/18 06:33 Pulse 58 L 07/27/18 06:33 Resp 16 07/27/18 06:33 BP 178/81 07/27/18 06:33 Pulse Ox 98 07/27/18 06:33 Intake & Output 07/26/18 07/27/18 07/27/18 18:59 06:59 18:59 Intake Total 1200 240 Output Total 800 Balance 1200 -560 Weight 53.7 kg Intake: IV 200 Intake, IV Titration 1000 Amount Sodium Chloride 0.9% 1, 1000 000 ml @ 125 mls/hr IV . Q8H [facility] Rx#:[id number] Oral 240 Output: Urine 800 Other: Voiding Method Toilet Urinal # Voids 1 - Exam GENERAL: This is a thin 57-year-old male in no apparent distress at the time of examination. HEENT: Head is normocephalic. Laceration to left cheek, currently scabbed over. Pupils are equal, round, and reactive to light. Sclerae anicteric. Conjunctivae are clear. Mucus membranes of the mouth are moist. Swelling to left jaw present. Pain upon palpation of region. No obvious dental abscess noted. RESPIRATORY: Clear to ausculation. No wheezes, rales, or rhonchi. No use of accessory muscles. Patient maintaining oxygen saturation greater than 92%. No chest wall tenderness is noted on palpation or with deep breathing. CARDIOVASCULAR: Regular rate and rhythm. S1 and S2 noted. No systolic or diastolic murmur auscultated. No JVD noted. No S3 or S4 noted. GASTROINTESTINAL: No distention noted. Abdomen soft. Normal active bowel sounds auscultated x 4 quadrants. No pain or tenderness upon palpation of all four quadrants. INTEGUMENTARY: No cyanosis. No jaundice. No rashes noted. No cellulitis noted. EXTREMITIES: 2+ peripheral pulses. No evidence of peripheral edema. No calf tenderness noted. NEUROLOGIC: Cranial nerves II-XII intact. PSYCHIATRIC: Awake, alert, and oriented X 3. Appropriate affect. - Labs CBC & Chem 7: 07/27/18 08:40 0918 08:40 Assessment and Plan Plan: ASSESSMENT: Nausea, vomiting, and abdominal pain suspected secondary to cannabinoid hyperemesis syndrome, s/p EGD revealing gastritis Elevated amylase and lipase, possible pancreatitis, imaging negative Acute kidney injury, secondary to hypovolemia due to vomiting and decreased oral intake, resolved Syncope, suspect secondary to dehydration and hypovolemia Elevated troponins secondary to SAMANTHA, patient denies chest pain/pressure Multiple hospital admissions secondary to nausea, vomiting, and abdominal pain with SAMANTHA COPD, no evidence of acute exacerbation Nicotine dependence, patient is a current cigarette smoker, 1 pack per day History of left lower lobe lobectomy as an Cannabis use Hypokalemia Hyponatremia History of heavy alcohol use many years ago Acute jaw swelling and pain, etiology unclear PLAN: Dr. Irizarry on consult. Appreciate recommendations and input Advance diet as tolerated Obtain CT scan No cardiology consult at this time per Dr. Styles Home meds as appropriate Monitor labs GI prophylaxis: Protonix 40 mg IV Daily DVT prophylaxis: SCDs to bilateral lower extremities Monitor vital signs and address as appropriate Discharge planning: Patient to return home when stable Further recommendations pending patient's course Nurse practitioner note has been reviewed by physician. Signing provider agrees with the documented findings, assessment, and plan of care.
--- NOTE | 2018-07-27 11:50 | P.PN ---
Subjective Progress Note Date: 07/27/18 Principal diagnosis: nausea vomiting epigastric abdominal pain elevated amylase lipase Admitted with intractable nausea vomiting elevated pancreatic enzymes epigastric abdominal pain with a history of remote EtOH. Status post EGD yesterday with findings of gastritis. Biopsies pending. Nausea vomiting resolved. Lipase improved. Amylase increased to 434 today. Afebrile. Minimal abdominal discomfort. Objective - Vital Signs Vital signs: Vital Signs Temp 97.5 F L 07/27/18 06:33 Pulse 58 L 07/27/18 06:33 Resp 16 07/27/18 06:33 BP 178/81 07/27/18 06:33 Pulse Ox 98 07/27/18 06:33 Intake & Output 07/26/18 07/27/18 07/27/18 18:59 06:59 18:59 Intake Total 1200 240 Output Total 800 Balance 1200 -560 Weight 53.7 kg 53.7 kg Intake: IV 200 Intake, IV Titration 1000 Amount Sodium Chloride 0.9% 1, 1000 000 ml @ 125 mls/hr IV . Q8H [facility] Rx#:[id number] Oral 240 Output: Urine 800 Other: Voiding Method Toilet Toilet Urinal Urinal # Voids 1 - Exam General appearance: The patient is alert, oriented, in no acute distress. HET: Head is normocephalic and atraumatic. Pupils are equal and reactive. Oropharynx is clear without lesions. Neck: Supple without lymphadenopathy. Trachea midline. Heart: S1 S2. Regular rate and rhythm. Lungs: No crackles or wheezes are heard. Abdomen: Soft, nontender, nondistended with bowel sounds. No peritoneal signs. No palpable organomegaly or masses. Extremities: Normal skin color and turgor. No cyanosis, rash, ulceration, clubbing, or edema. Radial and pedal pulses are 2/4 bilaterally. Neurological: No focal deficits. Strength and sensation are grossly intact. - Labs CBC & Chem 7: 07/27/18 08:40 07/27/18 08:40 Labs: Abnormal Lab Results - Last 24 Hours (Table) 07/27/18 07/27/18 Range/Units 08:40 08:40 Hgb 12.6 L (13.0-17.5) gm/dL Plt Count 146 L (150-450) k/uL Sodium 135 L (137-145) mmol/L Glucose 186 H (74-99) mg/dL Calcium 8.3 L (8.4-10.2) mg/dL Alkaline Phosphatase 33 L (38-126) U/L Total Protein 4.8 L (6.3-8.2) g/dL Albumin 2.8 L (3.5-5.0) g/dL Amylase 434 H* (30-110) U/L Assessment and Plan (1) Epigastric abdominal pain Narrative/Plan: 57-year-old gentleman admitted with acute epigastric abdominal pain intractable nausea vomiting with elevated pancreatic enzymes and history of marijuana usage with remote EtOH. Suspect a component of hyperemesis syndrome from cannabinoid use as well as a component of acute pancreatitis. EGD completed yesterday no evidence of peptic ulcer disease; gastritis. Biopsies pending. Current Visit: Yes Status: Acute Code(s): R10.13 - EPIGASTRIC PAIN SNOMED Code(s): 83385775 (2) Marijuana use Current Visit: Yes Status: Acute Code(s): F12.90 - CANNABIS USE, UNSPECIFIED , UNCOMPLICATED SNOMED Code(s): 930930824 (3) History of ETOH abuse Current Visit: Yes Status: Acute Code(s): Z87.898 - PERSONAL HISTORY OF OTHER SPECIFIED CONDITIONS SNOMED Code(s): 884652087 (4) Nausea & vomiting Current Visit: Yes Status: Acute Code(s): R11.2 - NAUSEA WITH VOMITING, UNSPECIFIED SNOMED Code(s): 84563003 Plan: 1. Continue with symptomatic supportive care. Continue with PPI. Lipase is improving however amylase is elevated today. Repeat pancreatic enzymes in a.m. We'll continue to follow with you. Assessment and plan a care discussed with Dr. Irizarry
[2018-07-27] MEDS ORDERED: PROPOFOL 10 MG/ML 20 ML VIAL IV ONE (13:46)
[2018-07-27] MEDS ORDERED: fentaNYL (PF) 50 MCG/ML 2 ML AMP ONE (13:46)
[2018-07-27] MEDS ORDERED: MIDAZOLAM 2 MG/2 ML VIAL ONE (13:46)
[2018-07-27] MEDS ORDERED: LIDOCAINE 1% INJ 10MG/ML (20 ML MDV) ONE (13:46)
[2018-07-27 15:36] VITALS: BMI 18.5
[2018-07-28] MEDS ORDERED: PANTOPRAZOLE 40 MG TABLET PO SCH (07:30)
[2018-07-28 07:52] VITALS: BP 132/76; PULSE 47; RESP 20; TEMP 97
[2018-07-28] MEDS: DICYCLOMINE 20 MG TAB PO SCH (08:01)
[2018-07-28] MEDS: BISOPROLOL-HCTZ 2.5-6.25 MG 1 EACH TAB PO SCH (08:02)
[2018-07-28] MEDS: ACETAMINOPHEN TAB 325 MG TAB PO PRN (08:03)
[2018-07-28] MEDS ORDERED: LEVOFLOXACIN 500 MG TAB PO SCH (09:00)
[2018-07-28 09:39] LABS: ALT 35 U/L (21-72); AST 26 U/L (17-59); Alkaline Phosphatase 37 U/L (38-126); Anion Gap 4 mmol/L; Blood Urea Nitrogen 11 mg/dL (9-20); Calcium 9.1 mg/dL (8.4-10.2); Carbon Dioxide 30 mmol/L (22-30); Chloride 103 mmol/L (98-107); Glucose 118 mg/dL (74-99); Lipase 172 U/L (23-300); Potassium 4.4 mmol/L (3.5-5.1); Sodium 137 mmol/L (137-145); Total Bilirubin 0.4 mg/dL (0.2-1.3); Total Protein 5.2 g/dL (6.3-8.2)
[2018-07-28 09:48] LABS: Amylase 483 U/L (30-110)
--- NOTE | 2018-07-28 11:56 | P.PN ---
Subjective Progress Note Date: 07/28/18 Principal diagnosis: nausea vomiting epigastric abdominal pain elevated amylase lipase Admitted with intractable nausea vomiting elevated pancreatic enzymes epigastric abdominal pain with a history of remote EtOH. Status post EGD with findings of gastritis. Biopsies negative. Nausea vomiting resolved. Lipase improved. Amylase still elevated 483 today. Afebrile. Minimal abdominal discomfort. Objective - Vital Signs Vital signs: Vital Signs Temp 97.0 F L 07/28/18 06:00 Pulse 47 L 07/28/18 06:00 Resp 20 07/28/18 06:00 BP 132/76 07/28/18 06:00 Pulse Ox 100 07/28/18 06:00 Intake & Output 07/27/18 07/28/18 07/28/18 18:59 06:59 18:59 Intake Total 1140 300 680 Output Total 400 Balance 740 300 680 Weight 53.7 kg Intake: Oral 1140 300 680 Output: Urine 400 Other: Voiding Method Toilet Urinal # Voids 2 1 - Exam General appearance: The patient is alert, oriented, in no acute distress. HET: Head is normocephalic and atraumatic. Pupils are equal and reactive. Oropharynx is clear without lesions. Neck: Supple without lymphadenopathy. Trachea midline. Heart: S1 S2. Regular rate and rhythm. Lungs: No crackles or wheezes are heard. Abdomen: Soft, nontender, nondistended with bowel sounds. No peritoneal signs. No palpable organomegaly or masses. Extremities: Normal skin color and turgor. No cyanosis, rash, ulceration, clubbing, or edema. Radial and pedal pulses are 2/4 bilaterally. Neurological: No focal deficits. Strength and sensation are grossly intact. - Labs CBC & Chem 7: 07/27/18 08:40 07/28/18 08:55 Labs: Abnormal Lab Results - Last 24 Hours (Table) 07/28/18 Range/Units 08:55 Glucose 118 H (74-99) mg/dL Alkaline Phosphatase 37 L (38-126) U/L Total Protein 5.2 L (6.3-8.2) g/dL Albumin 3.0 L (3.5-5.0) g/dL Amylase 483 H* (30-110) U/L Assessment and Plan (1) Epigastric abdominal pain Narrative/Plan: 57-year-old gentleman admitted with acute epigastric abdominal pain intractable nausea vomiting with elevated pancreatic enzymes and history of marijuana usage with remote EtOH. Suspect a component of hyperemesis syndrome from cannabinoid use as well as a component of acute pancreatitis. EGD completed no evidence of peptic ulcer disease; gastritis. Biopsies negative. Current Visit: Yes Status: Acute Code(s): R10.13 - EPIGASTRIC PAIN SNOMED Code(s): 49757904 (2) Marijuana use Current Visit: Yes Status: Acute Code(s): F12.90 - CANNABIS USE, UNSPECIFIED , UNCOMPLICATED SNOMED Code(s): 615084914 (3) History of ETOH abuse Current Visit: Yes Status: Acute Code(s): Z87.898 - PERSONAL HISTORY OF OTHER SPECIFIED CONDITIONS SNOMED Code(s): 931761246 (4) Nausea & vomiting Current Visit: Yes Status: Acute Code(s): R11.2 - NAUSEA WITH VOMITING, UNSPECIFIED SNOMED Code(s): 93657154 Plan: 1. Agreeable for discharge. Case discussed with Dr. East this morning. Outpatient MRCP/MRI pancreas with an without contrast advised; prescription provided. Return to office in 2-3 weeks for reevaluation. Patient was advised to return to the hospital if symptoms of nausea vomiting epigastric pain recurs/ worsen. We'll obtain a triglyceride and CA-19-9 level. Assessment and plan of care discussed with Dr. Irizarry
[2018-07-28] MEDS: SODIUM CHLORIDE 0.9% 1,000 ML IV SCH (13:04)
--- NOTE | 2018-07-28 13:26 | P.DS ---
Providers Date of admission: 07/24/18 11:05 Expected date of discharge: 07/28/18 Attending physician: Ehsan East Consults: 07/25/18 09:27 Consult Physician Routine Consulting Provider: Patrick Irizarry Consult Reason/Comments: persistent N/V, multiple admissions for same s/s Do you want consulting provider notified?: Yes Primary care physician: Ehsan East Hospital Course: 57-year-old male who presented to the emergency room with a chief complaint of nausea, vomiting, and abdominal pain. The patient has had previous admissions to the hospital for similar symptoms in March 2018 and May 2018. He has also been seen in the emergency room in May 2018 and July 2018 for similar symptoms. The patient was thought to have cannabinoid hyperemesis syndrome and cessation of marijuana was recommended. However, the patient continues to smoke marijuana. Toxicology screen completed in ER is positive for marijuana. The patient states he began having nausea, vomiting, and abdominal pain . He came to the ER and was given IV fluids and antiemetics and discharged home. The patient presented back to the hospital yesterday for similar symptoms. The patient states he was continuing to experience nausea and vomiting and abdominal pain. He reports he went and took a long very hot shower to help alleviate his abdominal cramping and while he was in the shower he passed out and ended up on the floor. The patient does have a facial laceration to his left cheek. He reports nausea that is worse in the morning. He denies blood in his stool or change in bowel habits. Patient denies chest pain or pressure. Denies shortness of breath. Denies dizziness or lightheadedness. The patient has a history of asthma, macular degeneration, nicotine dependence, and marijuana use. The patient used to be a heavy alcohol drinker, but has not drank alcohol in many years. Chest x-ray: COPD, left small pleural effusion, scarring at the left lung base. Computed tomography scan brain and C-spine: Negative for an acute intercranial abnormality. Degenerative changes of the cervical spine. No acute osseous lesion. Effacement of the fossa of Rosenmuller on the right. Laboratory data upon admission reveals white count of 10.3. Hemoglobin 18.1. Platelet count 195. Sodium 134. Potassium 3.5. Chloride 81. Carbon dioxide 33. BUN 45. Creatinine 2.0. Glucose 179. Magnesium 2.5. Total bilirubin 1.4. AST 29. ALT 37. Lipase 258. Troponins: 0.043, 0.048, 0.033 Urinalysis reveals: 1+ proteinuria, trace ketones, rare mucus, hyaline casts 11. Toxicology urine screen is positive for cannabis. The patient was evaluated by Dr. Irizarry, GI, during hospitalization. The patient underwent EGD on 07/26/2018 which revealed gastritis of the antrum and body. Biopsies were taken and are currently pending. Dr. Irizarry stressed the importance of cessation of marijuana use. The patient's pancreas enzymes on admission were within normal limits. However the next day they increased to an amylase of 186 and lipase of 1175. Patient was given IV fluids and put on a clear liquid diet. The following morning his amylase was 83. And his lipase wasn't 139. However over the next 2 days his amylase increased to 434 and 483. His lipase continued to remain normal. The patient's nausea, vomiting, and abdominal cramping have resolved. The patient is tolerating a regular diet. The patient developed left jaw/cheek swelling that increased in size rapidly over a period. The patient underwent a computed tomography scan of the face which revealed a fluid density adjacent to the left side submandibular gland which is partially imaged which may be related to infectious changes versus posttraumatic changes. No drainable collection is seen at this time. The patient's white count continues to remain within normal limits. He has been afebrile. He was started on Levaquin. His swelling and pain have both improved. The patient does report he has a dentist appointment scheduled for 08/02/2018. Importance of going to scheduled appointment was stressed to patient who verbalized understanding. The patient was deemed stable for discharge. He is to follow up on an outpatient basis with his primary care physician, Dr. Irizarry, and his dentist. A prescription for Levaquin 500 mg for 10 days was sent to the patient's preferred pharmacy. The patient was once again instructed to abstain from marijuana as this is likely contributing to his symptoms of nausea, vomiting, and abdominal pain. DISCHARGE DIAGNOSIS: Nausea, vomiting, and abdominal pain suspected secondary to cannabinoid hyperemesis syndrome, s/p EGD revealing gastritis Elevated amylase and lipase, suspect pancreatitis, imaging negative Acute kidney injury, secondary to hypovolemia due to vomiting and decreased oral intake, resolved Syncope, suspect secondary to dehydration and hypovolemia Elevated troponins secondary to SAMANTHA, patient denies chest pain/pressure Multiple hospital admissions secondary to nausea, vomiting, and abdominal pain with SAMANTHA COPD, no evidence of acute exacerbation Nicotine dependence, patient is a current cigarette smoker, 1 pack per day History of left lower lobe lobectomy as an infant Cannabis use Hypokalemia, resolved at the time of discharge Hyponatremia, resolved at the time of discharge History of heavy alcohol use many years ago Acute jaw swelling and pain, suspect due to dental abscess, improved at time of discharge Nurse practitioner note has been reviewed by physician. Signing provider agrees with the documented findings, assessment, and plan of care. Patient Condition at Discharge: Stable Plan - Discharge Summary Discharge Rx Participant: Yes New Discharge Prescriptions: New Levofloxacin [Levaquin] 500 mg PO Q24H #10 tab Continue Bisoprol/Hydrochlorothiazide [Ziac 2.5-6.25 MG] 1 tab PO DAILY Dicyclomine [Bentyl] 20 mg PO TID #30 tablet Ondansetron Odt [Zofran ODT] 4 mg PO Q8HR PRN #10 tab PRN Reason: Nausea Discharge Medication List Bisoprol/Hydrochlorothiazide [Ziac 2.5-6.25 MG] 1 tab PO DAILY 07/21/18 [History ] Dicyclomine [Bentyl] 20 mg PO TID #30 tablet 07/21/18 [Rx] Ondansetron Odt [Zofran ODT] 4 mg PO Q8HR PRN #10 tab 07/21/18 [Rx] Levofloxacin [Levaquin] 500 mg PO Q24H #10 tab 07/28/18 [Rx] Follow up Appointment(s)/Referral(s): Ehsan East MD [Primary Care Provider] - 1 Week Patrick Irizarry MD [STAFF PHYSICIAN] - 08/16/18 4:45 pm Activity/Diet/Wound Care/Special Instructions: Avoid Marijuana use Discharge Disposition: HOME SELF-CARE
== END 2018-07-28 14:00 | disposition home or self-care (01) | DRG 917 ==
LOC: EC 09:09 → 6SEL 11:05 → 4MS4W 07-26 14:56
PROVIDERS: ADMIT Family Medicine; ATTEND Family Medicine
PROC: 0DB78ZX Excision of Stomach, Pylorus, Via Natural or Artificial Opening Endoscopic, Diagnostic (ICD-10-PCS; 2018-07-26)
PROC: 0DB68ZX Excision of Stomach, Via Natural or Artificial Opening Endoscopic, Diagnostic (ICD-10-PCS; principal; 2018-07-26 08:30)
DX: T40.7X1A Poisoning by cannabis (derivatives), accidental (unintentional), initial encounter (principal); K85.90 Acute pancreatitis without necrosis or infection, unspecified; E87.1 Hypo-osmolality and hyponatremia; N17.9 Acute kidney failure, unspecified; R11.2 Nausea with vomiting, unspecified; E86.0 Dehydration; E86.1 Hypovolemia; E87.6 Hypokalemia; F17.210 Nicotine dependence, cigarettes, uncomplicated; H35.30 Unspecified macular degeneration; H40.9 Unspecified glaucoma; Z86.010 Personal history of colon polyps; J44.9 Chronic obstructive pulmonary disease, unspecified; K29.70 Gastritis, unspecified, without bleeding; K57.90 Diverticulosis of intestine, part unspecified, without perforation or abscess without bleeding; S01.412A Laceration without foreign body of left cheek and temporomandibular area, initial encounter; Y93.E1 Activity, personal bathing and showering; Z71.6 Tobacco abuse counseling; Z88.0 Allergy status to penicillin; F10.11 Alcohol abuse, in remission; R74.8 Abnormal levels of other serum enzymes; Z90.2 Acquired absence of lung [part of]; Z83.79 Family history of other diseases of the digestive system; Z79.899 Other long term (current) drug therapy; W18.39XA Other fall on same level, initial encounter; Y92.002 Bathroom of unspecified non-institutional (private) residence as the place of occurrence of the external cause; R55 Syncope and collapse; K04.7 Periapical abscess without sinus
CPT/HCPCS: 12011; 36415; 43239; 70450; 70487; 71046; 72125; 76700; 80053; 80306; 80320; 81001; 82150; 83690; 83735; 84478; 84484; 85025; 86301; 88305; 90471; 90715; 93005; 96361; 96374; 99285

== ENCOUNTER → 2018-08-20 | Outpatient (CLI) | payer OTHER ==
--- NOTE | 2018-08-22 01:36 | MR ---
EXAMINATION TYPE: MR pancreas / mrcp wo/w con DATE OF EXAM: 08/20/2018 COMPARISON: None HISTORY: pancreatitis CONTRAST: Standard multiplanar, multisequence MRI departmental protocol utilizing 6 mL intravenous Gadavist arsalan olinium contrast. FINDINGS: Liver has normal size and contour. Bile ducts are not dilated. Common bile duct has normal size. Gallbladder appears normal. Gallbladder appears normally distended. The pancreatic duct is fairly well visualized on the axial T2 images and has normal diameter. I see n o pancreatic mass. There is no evidence of a pseudocyst. Kidneys show no hydronephrosis. There is no evidence of a splenic mass. There is no adrenal mass. Contrast images show no pathologic enhancement. There is no evidence of pancreatic mass. IMPRESSION: Negative exam. Exam fails to demonstrate evidence for pancreatitis. No dilated ducts.
== END ==
LOC: RADMRIMAIN 13:31
PROVIDERS: ATTEND Nurse Practitioner
DX: K85.90 Acute pancreatitis without necrosis or infection, unspecified (principal)
CPT/HCPCS: 74183; A9581

== ENCOUNTER 2018-09-07 22:26 | Observation (INO) | payer OTHER ==
[2018-09-07] MEDS ORDERED: ONDANSETRON 4 MG/2 ML VIAL IVP STA (23:26)
[2018-09-07] MEDS ORDERED: SODIUM CHLORIDE 0.9% 1,000 ML IV STA ×2 (23:26)
[2018-09-07] MEDS ORDERED: HYDROmorphone 1 MG/ML 1 ML SYRINGE IVP STA (23:26)
--- NOTE | 2018-09-07 23:31 | ED ---
Abdominal Pain HPI - General Chief Complaint: Abdominal Pain Stated Complaint: Abd Pain Time Seen by Provider: 09/07/18 23:00 Source: patient, RN notes reviewed Mode of arrival: ambulatory Limitations: no limitations - History of Present Illness Initial Comments: This is a 57-year-old male with a history of recurrent pancreatitis and states she had the onset earlier today of nausea vomiting and mid abdominal pain. He' s also had some brown colored diarrhea. He denies any use of alcohol or any other new medications. The pain is moderate in severity he still feeling nauseated right now. MD Complaint: abdominal pain, other - Related Data Home Medications Medication Instructions Recorded Confirmed Bisoprol/Hydrochlorothiazide [Ziac 1 tab PO DAILY 07/21/18 09/07/18 2.5-6.25 MG] Allergies Allergy/AdvReac Type Severity Reaction Status Date / Time Penicillins Allergy Rash/Hives/ Verified 09/07/18 23:16 Swelling Review of Systems ROS Statement: Those systems with pertinent positive or pertinent negative responses have been documented in the HPI. ROS Other: All systems not noted in ROS Statement are negative. Past Medical History Past Medical History: Asthma, Eye Disorder Additional Past Medical History / Comment(s): left eye macular degeneration History of Any Multi-Drug Resistant Organisms: None Reported Past Surgical History: Orthopedic Surgery Additional Past Surgical History / Comment(s): lung surg as infant-inhaled a piece of buddy hair used on a rolf tree", tooth extraction Past Anesthesia/Blood Transfusion Reactions: No Reported Reaction Past Psychological History: No Psychological Hx Reported Smoking Status: Current every day smoker Past Alcohol Use History: None Reported Past Drug Use History: Marijuana - Past Family History Mother Family Medical History: No Reported History Father Family Medical History: Liver Disease Additional Family Medical History / Comment(s): etoh- liver disease General Exam - General Exam Comments Initial Comments: This is a well-developed well-nourished awake alert oriented 3 male Limitations: no limitations General appearance: alert, in no apparent distress Head exam: Present: atraumatic, normocephalic, normal inspection Eye exam: Present: normal appearance, PERRL, EOMI. Absent: scleral icterus, conjunctival injection, periorbital swelling ENT exam: Present: mucous membranes dry Neck exam: Present: normal inspection. Absent: tenderness, meningismus, lymphadenopathy Respiratory exam: Present: normal lung sounds bilaterally. Absent: respiratory distress, wheezes, rales, rhonchi, stridor Cardiovascular Exam: Present: regular rate, normal rhythm, normal heart sounds. Absent: systolic murmur, diastolic murmur, rubs, gallop, clicks GI/Abdominal exam: Present: soft, tenderness (Epigastric tenderness palpation no guarding rebound masses or bruits), normal bowel sounds. Absent: distended, guarding, rebound, rigid Rectal exam: Present: deferred Extremities exam: Present: normal inspection, full ROM, normal capillary refill. Absent: tenderness, pedal edema, joint swelling, calf tenderness Back exam: Present: normal inspection Neurological exam: Present: alert, oriented X3, CN II-XII intact Psychiatric exam: Present: normal affect, normal mood Skin exam: Present: warm, dry, intact, normal color. Absent: rash Course Vital Signs 09/07/18 22:49 Temperature 97.4 F L Pulse Rate 94 Respiratory 20 Rate Blood Pressure 168/102 O2 Sat by Pulse 95 Oximetry Medical Decision Making - Medical Decision Making Reevaluation the patient finds that he still has nausea and vomiting and some mild epigastric/abdominal pain. Patient will be admitted for IV fluids and control of the nausea and vomiting - Lab Data Result diagrams: 09/07/18 23:19 09/07/18 23:19 Lab Results 09/07/18 09/07/18 Range/Units 23:19 23:19 WBC 10.7 H (3.8-10.6) k/uL RBC 5.34 (4.30-5.90) m/uL Hgb 14.9 (13.0-17.5) gm/dL Hct 46.1 (39.0-53.0) % MCV 86.3 (80.0-100.0) fL MCH 27.8 (25.0-35.0) pg MCHC 32.2 (31.0-37.0) g/dL RDW 13.1 (11.5-15.5) % Plt Count 193 (150-450) k/uL Neutrophils % 80 % Lymphocytes % 12 % Monocytes % 5 % Eosinophils % 0 % Basophils % 1 % Neutrophils # 8.6 H (1.3-7.7) k/uL Lymphocytes # 1.3 (1.0-4.8) k/uL Monocytes # 0.5 (0-1.0) k/uL Eosinophils # 0.0 (0-0.7) k/uL Basophils # 0.1 (0-0.2) k/uL Sodium 140 (137-145) mmol/L Potassium 4.3 (3.5-5.1) mmol/L Chloride 96 L (98-107) mmol/L Carbon Dioxide 29 (22-30) mmol/L Anion Gap 15 mmol/L BUN 11 (9-20) mg/dL Creatinine 1.07 (0.66-1.25) mg/dL Est GFR (CKD-EPI)AfAm 89 (>60 ml/min/1.73 sqM) Est GFR (CKD-EPI)NonAf 77 (>60 ml/min/1.73 sqM) Glucose 139 H (74-99) mg/dL Calcium 10.9 H (8.4-10.2) mg/dL Total Bilirubin 0.5 (0.2-1.3) mg/dL AST 26 (17-59) U/L ALT 32 (21-72) U/L Alkaline Phosphatase 71 (38-126) U/L Total Protein 8.0 (6.3-8.2) g/dL Albumin 5.0 (3.5-5.0) g/dL Amylase 227 H (30-110) U/L Lipase 264 (23-300) U/L - Radiology Data Radiology results: report reviewed (I did review the imaging and report no acute findings.), image reviewed Disposition Clinical Impression: Acute gastritis, Abdominal pain, History of pancreatitis Disposition: ADMITTED IP TO THIS [facility] Condition: Stable Referrals: Ehsan East MD [Primary Care Provider] - 1-2 days
[2018-09-07 23:49] LABS: Basophils # (A) 0.1 k/uL (0-0.2); Basophils % (A) 1 %; Eosinophils % (A) 0 %; HCT 46.1 % (39.0-53.0); HGB 14.9 gm/dL (13.0-17.5); Lymphocytes # (A) 1.3 k/uL (1.0-4.8); Lymphocytes % (A) 12 %; MCH 27.8 pg (25.0-35.0); MCHC 32.2 g/dL (31.0-37.0); MCV 86.3 fL (80.0-100.0); Mean Platelet Volume 8.3; Monocytes # (A) 0.5 k/uL (0-1.0); Monocytes % (A) 5 %; Neutrophils # (A) 8.6 k/uL (1.3-7.7); Neutrophils % (A) 80 %; Platelet Count 193 k/uL (150-450); RBC 5.34 m/uL (4.30-5.90); RDW 13.1 % (11.5-15.5); WBC 10.7 k/uL (3.8-10.6)
[2018-09-07 23:55] LABS: Potassium 4.3 mmol/L (3.5-5.1)
[2018-09-07 23:57] LABS: Calcium 10.9 mg/dL (8.4-10.2); Total Bilirubin 0.5 mg/dL (0.2-1.3)
--- NOTE | 2018-09-07 23:58 | XR ---
EXAMINATION TYPE: XR KUB DATE OF EXAM: 09/07/2018 COMPARISON: 07/21/2018 HISTORY: Abdominal pain TECHNIQUE: 2 views upright FINDINGS: There is some blunting of left costophrenic angle. Bowel gas pattern is normal. There is no sign of intestinal obstruction or pneumoperitoneum. Fecal pattern is normal. There is no evidence of a mass. There are no pathologic calcifications over the kidneys. IMPRESSION: Pleural diaphragmatic scarring at the left lung base without change. Nonacute abdomen. Th ere is probably COPD.
[2018-09-08] MEDS ORDERED: ONDANSETRON 4 MG/2 ML VIAL IVP PRN (01:13)
[2018-09-08] MEDS ORDERED: HYDROmorphone 1 MG/ML 1 ML SYRINGE IVP PRN (01:13)
[2018-09-08] MEDS ORDERED: NALOXONE 0.4 MG/ML 1 ML VIAL IV PRN (01:13)
[2018-09-08 02:32] VITALS: BMI 19.5
[2018-09-08 05:35] LABS: Appearance,Urine Clear (Clear); Bilirubin,Urine Negative (Negative); Blood,Urine Negative (Negative); Color,Urine Yellow; Glucose,Urine (UA) Negative (Negative); Hyaline Casts,Urine 3 /lpf (0-2); Ketones,Urine 2+ (Negative); Leukocyte Esterase,Urine Negative (Negative); Mucus,Urine Rare /hpf; Nitrite,Urine Negative (Negative); Protein,Urine 2+ (Negative); RBC,Urine 3 /hpf (0-5); Specific Gravity,Urine 1.016 (1.001-1.035); Squamous Epithelial Cell,Urine <1 /hpf (0-4); Urobilinogen,Urine <2.0 mg/dL (<2.0); WBC,Urine 1 /hpf (0-5)
[2018-09-08] MEDS: hydrALAZINE HCL 25 MG TAB PO SCH ×4 (05:55→21:32)
[2018-09-08] MEDS ORDERED: hydrALAZINE HCL 20 MG/ML 1 ML VIAL IVP PRN ×2 (08:24→10:17)
[2018-09-08 08:54] LABS: Basophils % (A) 0 %; Eosinophils % (A) 0 %; HCT 45.4 % (39.0-53.0); HGB 14.9 gm/dL (13.0-17.5); Lymphocytes # (A) 0.8 k/uL (1.0-4.8); Lymphocytes % (A) 8 %; MCH 28.5 pg (25.0-35.0); MCHC 32.8 g/dL (31.0-37.0); MCV 86.9 fL (80.0-100.0); Mean Platelet Volume 8.3; Monocytes # (A) 0.4 k/uL (0-1.0); Monocytes % (A) 4 %; Neutrophils # (A) 8.5 k/uL (1.3-7.7); Neutrophils % (A) 87 %; Platelet Count 193 k/uL (150-450); RBC 5.22 m/uL (4.30-5.90); RDW 13.2 % (11.5-15.5); WBC 9.7 k/uL (3.8-10.6)
[2018-09-08] MEDS: PANTOPRAZOLE 40 MG/10 ML VIAL IV SCH ×2 (09:22→21:31)
[2018-09-08 09:27] LABS: ALT 31 U/L (21-72); AST 26 U/L (17-59); Albumin 4.9 g/dL (3.5-5.0); Alkaline Phosphatase 64 U/L (38-126); Amylase 133 U/L (30-110); Anion Gap 16 mmol/L; Blood Urea Nitrogen 15 mg/dL (9-20); Calcium 10.3 mg/dL (8.4-10.2); Carbon Dioxide 28 mmol/L (22-30); Chloride 97 mmol/L (98-107); Glucose 143 mg/dL (74-99); Lipase 65 U/L (23-300); Potassium 4.5 mmol/L (3.5-5.1); Sodium 141 mmol/L (137-145); Total Bilirubin 0.6 mg/dL (0.2-1.3); Total Protein 7.7 g/dL (6.3-8.2)
[2018-09-08] MEDS: SODIUM CHLORIDE 0.9% 1,000 ML IV SCH ×7 (10:24→16:58)
--- NOTE | 2018-09-08 11:02 | P.CONS ---
History of Present Illness - Reason for Consult Consult date: 09/08/18 Abdominal pain Requesting physician: Kenneth Styles Jr - Chief Complaint Abdominal pain - History of Present Illness 57-year-old gentleman history of chronic marijuana usage hospitalized a month ago with acute abdominal pain nausea vomiting underwent EGD evaluation with findings of gastritis biopsies negative. At that time patient had elevated amylase in the 400 range with normal lipase. CA-19-9 was 6.1. Liver function tests unremarkable. He underwent an outpatient MRI of the pancreas showed no acute abnormality; normal findings. "I think it's my pancreatitis acting up". He was seen in follow-up GI office with recommendations for outpatient EUS. Admitted with recurrent abdominal pain the midepigastric region localized started yesterday with nausea vomiting nonbloody diarrhea. Denies fever chills hematemesis hematochezia melena. Lipase 133-227. Lipase 65-264. White count 9.7. Hemoglobin 14.9. Platelet 193. Total bilirubin 0.6. AST 26. ALT 31. AP 64. Systolic blood pressures elevated 180s/200s. Ultrasound abdomen July 2018 unremarkable. Review of Systems Constitutional: Denies fever, chills, sweats, weight gain, or loss. HEENT: Negative for migraines, blurred vision or loss, earaches, drainage, tinnitus, oral mucosal lesions, dysphagia, or odynophagia. Cardiac: Negative for chest pain, arrhythmias, or palpitation. Respiratory: Negative for shortness of breath, hemoptysis, cough, or sputum production. Gastrointestinal: See HPI for pertinent findings. Genitourinary: Negative for hematuria, urgency, frequency, polyuria, dysuria, or penile discharge. Musculoskeletal: Negative for muscle aches, swelling, arthritis, and arthralgias. Neurologic: Negative for stroke or TIA. Endocrine: Negative for thyroid problems. Skin: Negative for rash or itching. Psychiatric: Negative history for depression and anxiety Past Medical History Past Medical History: Asthma, Eye Disorder Additional Past Medical History / Comment(s): left eye macular degeneration History of Any Multi-Drug Resistant Organisms: None Reported Past Surgical History: Orthopedic Surgery Additional Past Surgical History / Comment(s): lung surg as -inhaled a piece of buddy hair used on a rolf tree", tooth extraction Past Anesthesia/Blood Transfusion Reactions: No Reported Reaction Past Psychological History: No Psychological Hx Reported Smoking Status: Current every day smoker Past Alcohol Use History: None Reported Additional Past Alcohol Use History / Comment(s): started smoking at age 16 smokes 1ppd Past Drug Use History: Marijuana Additional Drug Use History / Comment(s): occ use of marijuana - Past Family History Mother Family Medical History: No Reported History Father Family Medical History: Liver Disease Additional Family Medical History / Comment(s): etoh- liver disease Medications and Allergies Home Medications Medication Instructions Recorded Confirmed Type Bisoprol/Hydrochlorothiazide [Ziac 1 tab PO DAILY 07/21/18 09/07/18 History 2.5-6.25 MG] Allergies Allergy/AdvReac Type Severity Reaction Status Date / Time Penicillins Allergy Rash/Hives/ Verified 09/07/18 23:16 Swelling Physical Exam Vitals: Vital Signs Temp Pulse Pulse Resp BP BP Pulse Ox 09/08/18 09:00 74 187/86 09/08/18 08:28 82 16 200/99 09/08/18 08:00 77 194/93 09/08/18 04:15 98.4 F 77 16 206/93 96 09/08/18 02:23 98 F 89 18 177/89 94 L 09/08/18 01:32 98.6 F 93 16 179/99 97 09/07/18 22:49 97.4 F L 94 20 168/102 95 Intake and Output 09/07/18 09/08/18 09/08/18 22:59 06:59 14:59 Other: # Voids 1 Weight 56.699 kg 56.699 kg General appearance: The patient is alert, oriented, in no acute distress. HET: Head is normocephalic and atraumatic. Pupils are equal and reactive. Oropharynx is clear without lesions. Neck: Supple without lymphadenopathy. Trachea midline. Heart: S1 S2. Regular rate and rhythm. Lungs: No crackles or wheezes are heard. Abdomen: Soft, mild tenderness to the midepigastrium, nondistended with bowel sounds. No peritoneal signs. No palpable organomegaly or masses. Extremities: Normal skin color and turgor. No cyanosis, rash, ulceration, clubbing, or edema. Radial and pedal pulses are 2/4 bilaterally. Neurological: No focal deficits. Strength and sensation are grossly intact. Results CBC & Chem 7: 09/08/18 08:40 09/08/18 08:40 Labs: Abnormal Lab Results - Last 24 Hours (Table) 09/07/18 09/07/18 09/08/18 Range/Units 23:19 23:19 03:30 WBC 10.7 H (3.8-10.6) k/uL Neutrophils # 8.6 H (1.3-7.7) k/uL Lymphocytes # (1.0-4.8) k/uL Chloride 96 L (98-107) mmol/L Glucose 139 H (74-99) mg/dL Calcium 10.9 H (8.4-10.2) mg/dL Amylase 227 H (30-110) U/L Urine Protein 2+ H (Negative) Urine Ketones 2+ H (Negative) Hyaline Casts 3 H (0-2) /lpf Urine Mucus Rare H (None) /hpf 09/08/18 09/08/18 Range/Units 08:40 08:40 WBC (3.8-10.6) k/uL Neutrophils # 8.5 H (1.3-7.7) k/uL Lymphocytes # 0.8 L (1.0-4.8) k/uL Chloride 97 L (98-107) mmol/L Glucose 143 H (74-99) mg/dL Calcium 10.3 H (8.4-10.2) mg/dL Amylase 133 H (30-110) U/L Urine Protein (Negative) Urine Ketones (Negative) Hyaline Casts (0-2) /lpf Urine Mucus (None) /hpf Assessment and Plan (1) Abdominal pain Narrative/Plan: 57-year-old male admitted with hypertension upper abdominal pain nausea vomiting diarrhea with recent hospitalization for similar complaints status post unremarkable EGD and outpatient MRI of the pancreas with normal liver function tests. Etiology of abdominal pain is unclear possible cannabinoid hyperemesis syndrome possible chronic pancreatitis possible biliary dyskinesia. Hypertensive crisis known to exacerbate nausea vomiting. Current Visit: Yes Status: Acute Code(s): R10.9 - UNSPECIFIED ABDOMINAL PAIN SNOMED Code(s): 73144630 (2) Marijuana use Current Visit: Yes Status: Chronic Code(s): F12.90 - CANNABIS USE, UNSPECIFIED, UNCOMPLICATED SNOMED Code(s): 959960236 (3) Hypertension Current Visit: Yes Status: Acute Code(s): I10 - ESSENTIAL (PRIMARY) HYPERTENSION SNOMED Code(s): 86749337 Plan: 1. Light diet as tolerated. Blood pressure control. GI prophylaxis Protonix 40 mg twice daily. Symptomatic supportive measures. Advise general surgical consult consideration for HIDA evaluation if pain does not improve. Outpatient EUS was advised. Thank you for this kind referral and the opportunity to participate in the care of your patient. This consultation was discussed with Dr. Irizarry. The impression and plan of care have been directed as dictated.
[2018-09-08] MEDS: ONDANSETRON 4 MG/2 ML VIAL IVP PRN ×2 (11:07→21:35)
[2018-09-08 12:19] LABS: Amphetamine Screen,Urine Not Detected (NotDetected); Barbiturate Screen,Urine Not Detected (NotDetected); Benzodiazepines Screen,Urine Not Detected (NotDetected); Cocaine Screen,Urine Not Detected (NotDetected); Methadone Screen, Urine Not Detected (NotDetected); Opiate Screen,Urine Detected (NotDetected); Oxycodone Screen, Urine Not Detected (NotDetected); Phencyclidine Screen,Urine Not Detected (NotDetected); Tricyclic Antidepressant,Urine Not Detected (NotDetected); Urn Cannabinoid Scrn Detected (NotDetected)
--- NOTE | 2018-09-08 12:31 | P.HPIM ---
<Debbie Garvin A - Last Filed: 09/08/18 12:28> History of Present Illness H&P Date: 09/08/18 Chief Complaint: Abdominal pain 57-year-old male who presented to the emergency room with a chief complaint of abdominal pain, nausea, and vomiting. The patient reports the onset of this was yesterday morning and it was gradual. Patient denies chest pain or pressure. Denies shortness of breath. Denies fever or chills. KUB x- ray completed in the emergency room was negative for an acute abdominal process. No sign of intestinal obstruction or pneumoperitoneum. Normal fecal pattern. No evidence of mass. Stable COPD. Laboratory data upon admission revealed white count 10.7. Platelet count 193. Hemoglobin 14.9. Sodium 140. Potassium 4.3. BUN 11. Creatinine 1.07. Glucose 139. AST 26. ALT 32. Alkaline phosphatase 71. Amylase 227. Lipase 264. Urinalysis revealed 2+ proteinuria, 2+ ketones, 3 hyaline casts, rare mucus. The patient was given a fluid bolus in the emergency room and started on continuous IV fluids. Repeat amylase today is 133. Lipase 65. The patient has been admitted multiple times to the hospital for similar symptoms. The patient has a history of marijuana use and his chronic abdominal pain, nausea, and vomiting have been thought to be treated to cannabis hyperemesis syndrome. The patient did stop smoking marijuana for a short period of time with resolution of his symptoms but then returned to using marijuana. He was evaluated by Dr. Irizarry during previous hospitalization. The patient underwent EGD on 07/26/2018 which revealed gastritis of the antrum and body. The patient's pancreatic enzymes were elevated during previous hospitalization as well and some mild pancreatitis may be contributing to the patient's symptoms as well. The patient did undergo an MRI of the pancreas outpatient on 08/20/2018 which failed to demonstrate evidence for pancreatitis. No dilated ducts. No evidence of a pseudocyst. No pancreatic mass. The patient was seen and examined at the bedside. The patient reports he has had a few episodes of emesis this morning. Denies diarrhea. Reports generalized abdominal pain although it is improved from yesterday. The patient' s blood pressure has been significantly elevated during hospital patient. He is unable to tolerate his home antihypertensive medications. Review of Systems Those systems with pertinent positive or pertinent negative responses have been documented in the HPI Past Medical History Past Medical History: Asthma, Eye Disorder Additional Past Medical History / Comment(s): left eye macular degeneration History of Any Multi-Drug Resistant Organisms: None Reported Past Surgical History: Orthopedic Surgery Additional Past Surgical History / Comment(s): lung surg as infant-inhaled a piece of buddy hair used on a rolf tree", tooth extraction Past Anesthesia/Blood Transfusion Reactions: No Reported Reaction Past Psychological History: No Psychological Hx Reported Smoking Status: Current every day smoker Past Alcohol Use History: None Reported Additional Past Alcohol Use History / Comment(s): started smoking at age 16 smokes 1ppd Past Drug Use History: Marijuana Additional Drug Use History / Comment(s): occ use of marijuana - Past Family History Mother Family Medical History: No Reported History Father Family Medical History: Liver Disease Additional Family Medical History / Comment(s): etoh- liver disease Medications and Allergies Home Medications Medication Instructions Recorded Confirmed Type Bisoprol/Hydrochlorothiazide [Ziac 1 tab PO DAILY 07/21/18 09/07/18 History 2.5-6.25 MG] Allergies Allergy/AdvReac Type Severity Reaction Status Date / Time Penicillins Allergy Rash/Hives/ Verified 09/07/18 23:16 Swelling Physical Exam Vitals: Vital Signs Temp Pulse Pulse Resp BP BP Pulse Ox 09/08/18 09:00 74 187/86 09/08/18 08:28 82 16 200/99 09/08/18 08:00 74 16 194/93 09/08/18 04:15 98.4 F 77 16 206/93 96 09/08/18 02:23 98 F 89 18 177/89 94 L 09/08/18 01:32 98.6 F 93 16 179/99 97 09/07/18 22:49 97.4 F L 94 20 168/102 95 Intake and Output 09/07/18 09/08/18 09/08/18 22:59 06:59 14:59 Intake Total 100 Output Total 300 Balance -200 Intake: Oral 100 Output: Urine 300 Other: Voiding Method Toilet Urinal # Voids 1 1 Weight 56.699 kg 56.699 kg 56.699 kg GENERAL: This is a 57-year-old male in no apparent distress at the time of examination. Pleasant and cooperative. HEENT: Head is atraumatic, normocephalic. Pupils are equal, round, and reactive to light. Sclerae anicteric. Conjunctivae are clear. Mucus membranes of the mouth are moist. Neck is supple. RESPIRATORY: Clear to ausculation. No wheezes, rales, or rhonchi. No use of accessory muscles. Patient maintaining oxygen saturation greater than 92%. No chest wall tenderness is noted on palpation or with deep breathing. CARDIOVASCULAR: Regular rate and rhythm. S1 and S2 noted. No systolic or diastolic murmur auscultated. No JVD noted. No S3 or S4 noted. GASTROINTESTINAL: No distention noted. Abdomen soft and round. Bowel sounds auscultated x 4 quadrants. Mild pain and tenderness noted upon palpation. INTEGUMENTARY: No cyanosis. No jaundice. No rashes noted. No cellulitis noted. EXTREMITIES: 2+ peripheral pulses. No evidence of peripheral edema. No calf tenderness noted. NEUROLOGIC: Cranial nerves II-XII intact. PSYCHIATRIC: Awake, alert, and oriented X 3. Appropriate affect. Intact judgement and insight. Results CBC & Chem 7: 09/08/18 08:40 09/08/18 08:40 Labs: Abnormal Lab Results - Last 24 Hours (Table) 09/07/18 09/07/18 09/08/18 Range/Units 23:19 23:19 03:30 WBC 10.7 H (3.8-10.6) k/uL Neutrophils # 8.6 H (1.3-7.7) k/uL Lymphocytes # (1.0-4.8) k/uL Chloride 96 L (98-107) mmol/L Glucose 139 H (74-99) mg/dL Calcium 10.9 H (8.4-10.2) mg/dL Amylase 227 H (30-110) U/L Urine Protein 2+ H (Negative) Urine Ketones 2+ H (Negative) Hyaline Casts 3 H (0-2) /lpf Urine Mucus Rare H (None) /hpf 09/08/18 09/08/18 Range/Units 08:40 08:40 WBC (3.8-10.6) k/uL Neutrophils # 8.5 H (1.3-7.7) k/uL Lymphocytes # 0.8 L (1.0-4.8) k/uL Chloride 97 L (98-107) mmol/L Glucose 143 H (74-99) mg/dL Calcium 10.3 H (8.4-10.2) mg/dL Amylase 133 H (30-110) U/L Urine Protein (Negative) Urine Ketones (Negative) Hyaline Casts (0-2) /lpf Urine Mucus (None) /hpf Thrombosis Risk Factor Assmnt - Choose All That Apply Any of the Below Risk Factors Present?: Yes Each Factor Represents 1 point: Age 41-60 years Other Risk Factors: No Other congenital or acquired thrombophilia - If yes, enter type in comment: No Thrombosis Risk Factor Assessment Total Risk Factor Score: 1 Thrombosis Risk Factor Assessment Level: Low Risk Assessment and Plan Plan: ASSESSMENT: Chronic abdominal pain, nausea, and vomiting thought to be secondary to cannabinoid hyperemesis syndrome with component of mild pancreatitis, KUB x-ray negative. MRI of the pancreas 08/20/2018 negative for evidence of pancreatitis. EGD on 07/26/2018 which revealed gastritis of the antrum and body. Hypertensive urgency Multiple hospital admissions secondary to nausea, vomiting, and abdominal pain with SAMANTHA COPD, no evidence of acute exacerbation Nicotine dependence, patient is a current cigarette smoker, 1 pack per day History of left lower lobe lobectomy as an History of cannabis use PLAN: Consult Dr. Irizarry for evaluation as he has seen patient during previous admission Continue IV fluids at 100 mL an hour Obtain urine drug screen Zofran PRN Resume home medications tomorrow morning if patient is able to tolerate Hydralazine 20 mg IV push every 4 hours for systolic blood pressure greater than 180 Monitor labs GI prophylaxis: Protonix 40 mg IV twice a day DVT prophylaxis: SCDs to bilateral lower extremities Monitor vital signs and address as appropriate Discharge planning: Patient to return home when stable Further recommendations pending patient's course Recommend patient abstain from marijuana use Nurse practitioner note has been reviewed by physician. Signing provider agrees with the documented findings, assessment, and plan of care. <Kenneth Styles Jr - Last Filed: 09/09/18 18:31> Physical Exam Osteopathic Statement: *. No significant issues noted on an osteopathic structural exam other than those noted in the History and Physical/Consult. Vitals: Vital Signs Temp Pulse Resp BP Pulse Ox 09/09/18 16:00 65 16 09/09/18 11:45 97.7 F 65 16 148/82 98 09/09/18 05:26 98.3 F 84 20 135/74 95 09/08/18 21:43 99 F 70 16 144/83 96 09/08/18 18:41 80 20 133/65 Intake and Output 09/09/18 09/09/18 09/09/18 06:59 14:59 22:59 Intake Total 1680 2650 100 Output Total 450 450 Balance 1680 2200 -350 Intake: IV 300 100 Invasive Line 2 300 100 Intake, IV Titration 1200 1200 Amount Sodium Chloride 0.9% 1, 1200 1200 000 ml @ 100 mls/hr IV . Q[facility] Rx#:[id number] Oral 480 1150 Output: Urine 450 450 Other: Voiding Method Toilet Toilet Toilet Urinal # Voids 2 4 2 Weight 56.699 kg 56.699 kg Results CBC & Chem 7: 09/08/18 08:40 09/08/18 08:40
[2018-09-08] MEDS ORDERED: ACETAMINOPHEN TAB 325 MG TAB PO PRN (12:34)
[2018-09-09] MEDS: SODIUM CHLORIDE 0.9% 1,000 ML IV SCH ×3 (02:18→21:18)
[2018-09-09] MEDS: hydrALAZINE HCL 25 MG TAB PO SCH ×3 (07:48→21:16)
[2018-09-09] MEDS: BISOPROLOL-HCTZ 2.5-6.25 MG 1 EACH TAB PO SCH (07:48)
[2018-09-09] MEDS: PANTOPRAZOLE 40 MG/10 ML VIAL IV SCH (07:48)
--- NOTE | 2018-09-09 10:04 | P.PN ---
Subjective Progress Note Date: 09/09/18 Principal diagnosis: abdominal pain Feels better. No nausea vomiting. Abdominal pain improved. Requesting diet advancement. Afebrile. Improved blood pressures. Objective - Vital Signs Vital signs: Vital Signs Temp 98.3 F 09/09/18 05:26 Pulse 84 09/09/18 05:26 Resp 20 09/09/18 05:26 BP 135/74 09/09/18 05:26 Pulse Ox 95 09/09/18 05:26 Intake & Output 09/08/18 09/09/18 09/09/18 18:59 06:59 18:59 Intake Total 600 1680 200 Output Total 1300 Balance -700 1680 200 Weight 56.699 kg 56.699 kg Intake: IV 200 Invasive Line 2 200 Intake, IV Titration 200 1200 Amount Sodium Chloride 0.9% 1, 200 1200 000 ml @ 100 mls/hr IV . Q10H [facility] Rx#:[id number] Oral 400 480 Output: Urine 1300 Other: Voiding Method Toilet Toilet Toilet Urinal Urinal # Voids 1 2 0 - Exam General appearance: The patient is alert, oriented, in no acute distress. HET: Head is normocephalic and atraumatic. Pupils are equal and reactive. Oropharynx is clear without lesions. Neck: Supple without lymphadenopathy. Trachea midline. Heart: S1 S2. Regular rate and rhythm. Lungs: No crackles or wheezes are heard. Abdomen: Soft, very mild midepigastric tenderness, nondistended with bowel sounds. No peritoneal signs. No palpable organomegaly or masses. Extremities: Normal skin color and turgor. No cyanosis, rash, ulceration, clubbing, or edema. Radial and pedal pulses are 2/4 bilaterally. Neurological: No focal deficits. Strength and sensation are grossly intact. - Labs CBC & Chem 7: 09/08/18 08:40 09/08/18 08:40 Labs: Abnormal Lab Results - Last 24 Hours (Table) 09/08/18 Range/Units 03:30 Urine Opiates Screen Detected H (NotDetected) U Marijuana (THC) Screen Detected H (NotDetected) Assessment and Plan (1) Abdominal pain Narrative/Plan: 57-year-old male admitted with hypertension upper abdominal pain nausea vomiting diarrhea with recent hospitalization for similar complaints status post unremarkable EGD and outpatient MRI of the pancreas with normal liver function tests. Etiology of abdominal pain is unclear possible cannabinoid hyperemesis syndrome possible chronic pancreatitis possible biliary dyskinesia. Hypertensive crisis known to exacerbate nausea vomiting. Current Visit: Yes Status: Acute Code(s): R10.9 - UNSPECIFIED ABDOMINAL PAIN SNOMED Code(s): 69438044 (2) Marijuana use Current Visit: Yes Status: Chronic Code(s): F12.90 - CANNABIS USE, UNSPECIFIED, UNCOMPLICATED SNOMED Code(s): 914066954 (3) Hypertension Current Visit: Yes Status: Acute Code(s): I10 - ESSENTIAL (PRIMARY) HYPERTENSION SNOMED Code(s): 12421879 Plan: 1. Low Fat diet if tolerated agreeable for discharge. GI prophylaxis Protonix 40 mg twice daily. Symptomatic supportive measures. Assessment and plan a care discussed with Dr. Irizarry
[2018-09-09] MEDS: ONDANSETRON 4 MG/2 ML VIAL IVP PRN (16:19)
[2018-09-09] MEDS: PANTOPRAZOLE 40 MG TABLET PO SCH (16:49)
--- NOTE | 2018-09-09 18:38 | P.PN ---
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 Was able to tolerate and keep down oral meds today. And has had some improvement with tolerating diet Objective - Vital Signs Vital signs: Vital Signs Temp 97.7 F 09/09/18 11:45 Pulse 65 09/09/18 16:00 Resp 16 09/09/18 16:00 BP 148/82 09/09/18 11:45 Pulse Ox 98 09/09/18 11:45 Intake & Output 09/08/18 09/09/18 09/09/18 18:59 06:59 18:59 Intake Total 600 1680 2750 Output Total 1300 900 Balance -700 1680 1850 Weight 56.699 kg 56.699 kg Intake: IV 400 Invasive Line 2 400 Intake, IV Titration 200 1200 1200 Amount Sodium Chloride 0.9% 1, 200 1200 1200 000 ml @ 100 mls/hr IV . Q10H ERICA Rx#:[id number] Oral 399 083 6412 Output: Urine 1300 900 Other: Voiding Method Toilet Toilet Toilet Urinal Urinal # Voids 1 2 2 - Exam General: [Patient awake, alert and oriented times 3. Patient in no acute distress.] HEENT: [PERRL. EOMI. No pharyngeal erythema or exudate.] Neck: [No adenopathy.] Cardiac: [Heart regular in rate and rhythm. No S3. No S4. No clicks, rubs. No murmur.] Lungs: [Clear to auscultation bilaterally.] Abdomen: [No mass. No organomegaly. Bowel sounds presnt and normoactive in all 4 quadrants.] Mild diffuse abdominal tenderness Extremes: [No edema no cyanosis no claudication normal pulses] : [] Musculoskeletal: [No joint erythema, edema or tenderness.] Skin: [No rash.] Neurologic: [No lateralizing deficits. CN II - XII grossly intact.] Lymphatic: [No adenopathy.] - Labs CBC & Chem 7: 09/08/18 08:40 09/08/18 08:40 Assessment and Plan (1) History of pancreatitis Current Visit: Yes Status: Acute Code(s): Z87.19 - PERSONAL HISTORY OF OTHER DISEASES OF THE DIGESTIVE SYSTEM SNOMED Code(s): 23510769277444 (2) Hypertension Current Visit: Yes Status: Acute Code(s): I10 - ESSENTIAL (PRIMARY) HYPERTENSION SNOMED Code(s): 63963899 (3) Marijuana use Current Visit: Yes Status: Chronic Code(s): F12.90 - CANNABIS USE, UNSPECIFIED, UNCOMPLICATED SNOMED Code(s): 190109086 Plan: Excessive cannabis vomiting nausea syndrome Hypertensive urgency Excessive social emotional stressors patient has recently lost job and has some( increased household pressure is regarding the same And hydralazine to help control blood pressure will also add prednisone IV for excessive wheezing we'll be adding albuterol updrafts 4 times a day as well
[2018-09-09] MEDS: ALBUTEROL NEBULIZED 2.5 MG/3 ML INHALATION SCH (20:51)
[2018-09-09 23:06] VITALS: RESP 16
[2018-09-10] MEDS: ALBUTEROL NEBULIZED 2.5 MG/3 ML INHALATION SCH ×3 (00:15→08:38)
[2018-09-10] MEDS: HYDROCORTISONE SUCCINATE 100 MG/2 ML VIAL IV SCH ×2 (00:26→07:59)
[2018-09-10 04:47] VITALS: TEMP 97.7
[2018-09-10 05:26] VITALS: BP 132/67; PULSE 94
[2018-09-10] MEDS: PANTOPRAZOLE 40 MG TABLET PO SCH (07:58)
[2018-09-10] MEDS: SODIUM CHLORIDE 0.9% 1,000 ML IV SCH (07:58)
[2018-09-10] MEDS: BISOPROLOL-HCTZ 2.5-6.25 MG 1 EACH TAB PO SCH (07:59)
[2018-09-10] MEDS: hydrALAZINE HCL 25 MG TAB PO SCH (07:59)
--- NOTE | 2018-09-10 11:13 | P.DS ---
Providers Date of admission: 09/08/18 01:13 Expected date of discharge: 09/10/18 Attending physician: Kenneth Styles Consults: 09/08/18 08:28 Consult Physician Routine Consulting Provider: Patrick Irizarry Consult Reason/Comments: abdominal pain Do you want consulting provider notified?: Yes Primary care physician: Ehsan East - Discharge Diagnosis(es) (1) History of pancreatitis Current Visit: Yes Status: Acute (2) Hypertension Current Visit: Yes Status: Acute (3) Marijuana use Current Visit: Yes Status: Chronic Hospital Course: General: [Patient awake, alert and oriented times 3. Patient in no acute distress.] HEENT: [PERRL. EOMI. No pharyngeal erythema or exudate.] Neck: [No adenopathy.] Cardiac: [Heart regular in rate and rhythm. No S3. No S4. No clicks, rubs. No murmur.] Lungs: [Clear to auscultation bilaterally.] Abdomen: [No mass. No organomegaly. Bowel sounds presnt and normoactive in all 4 quadrants.] Extremes: [No edema no cyanosis no claudication normal pulses] : [] Musculoskeletal: [No joint erythema, edema or tenderness.] Skin: [No rash.] Neurologic: [No lateralizing deficits. CN II - XII grossly intact.] Lymphatic: [No adenopathy.] Patient Condition at Discharge: Fair Plan - Discharge Summary Discharge Rx Participant: Yes New Discharge Prescriptions: New Bisoprol/Hydrochlorothiazide [Ziac 10-6.25 MG] 1 each PO DAILY #30 tab Discontinued Bisoprol/Hydrochlorothiazide [Ziac 2.5-6.25 MG] 1 tab PO DAILY Discharge Medication List Bisoprol/Hydrochlorothiazide [Ziac 10-6.25 MG] 1 each PO DAILY #30 tab 09/10/18 [Rx] Follow up Appointment(s)/Referral(s): Ehsan East MD [Primary Care Provider] - 1-2 days
[2018-09-11] MEDS ORDERED: BISOPROLOL-HCTZ 10-6.25 MG 1 EACH TAB PO SCH (09:00)
== END 2018-09-10 11:35 | disposition home or self-care (01) ==
LOC: EC 22:26 → 3NMEDONC 09-08 01:13
PROVIDERS: ADMIT Family Medicine; ATTEND Family Medicine
DX: G89.29 Other chronic pain (principal); R10.13 Epigastric pain; I16.0 Hypertensive urgency; I10 Essential (primary) hypertension; N17.9 Acute kidney failure, unspecified; Z87.19 Personal history of other diseases of the digestive system; R19.7 Diarrhea, unspecified; J44.9 Chronic obstructive pulmonary disease, unspecified; F17.210 Nicotine dependence, cigarettes, uncomplicated; H35.30 Unspecified macular degeneration; F12.90 Cannabis use, unspecified, uncomplicated; Z79.899 Other long term (current) drug therapy; Z88.0 Allergy status to penicillin; Z90.2 Acquired absence of lung [part of]; Z83.79 Family history of other diseases of the digestive system
CPT/HCPCS: 96376 ×3; 96375 ×3; 96361 ×2; 96374; 99285; 36415; 94640 ×3; 80053 ×2; 82150 ×2; 83690 ×2; 85025 ×2; 81001; 80306; 74018; G0378 ×3; J0360 ×2; J1720; J2405 ×3; J1170; C9113 ×2

== ENCOUNTER → 2019-01-31 | Outpatient (CLI) | payer OTHER ==
[2019-01-31 14:37] LABS: Basophils # (A) 0.1 k/uL (0-0.2); Basophils % (A) 1 %; Eosinophils # (A) 0.1 k/uL (0-0.7); Eosinophils % (A) 2 %; HCT 45.9 % (39.0-53.0); HGB 13.9 gm/dL (13.0-17.5); Hypochromasia Slight; Lymphocytes # (A) 1.9 k/uL (1.0-4.8); Lymphocytes % (A) 26 %; MCH 27.3 pg (25.0-35.0); MCHC 30.3 g/dL (31.0-37.0); MCV 90.3 fL (80.0-100.0); Mean Platelet Volume 7.2; Monocytes # (A) 0.4 k/uL (0-1.0); Monocytes % (A) 5 %; Neutrophils # (A) 4.5 k/uL (1.3-7.7); Neutrophils % (A) 62 %; Platelet Count 200 k/uL (150-450); RBC 5.09 m/uL (4.30-5.90); RDW 13.2 % (11.5-15.5); WBC 7.3 k/uL (3.8-10.6)
[2019-01-31 19:04] LABS: Albumin 4.4 g/dL (3.80-4.90); Albumin/Globulin Ratio 2.32 (1.60-3.17); Anion Gap 4.4 mmol/L (4.00-12.00); Calcium 9.6 mg/dL (8.7-10.3); Carbon Dioxide 29.6 mmol/L (21.6-31.8); Globulin 1.9 g/dL (1.6-3.3); LDL Cholesterol,Calculated 90.8 mg/dL (0.0-131.0); Potassium 4.4 mmol/L (3.5-5.5); Total Bilirubin 0.4 mg/dL (0.3-1.2); Total Protein 6.3 g/dL (6.2-8.2); VLDL Calculation 14.2 mg/dL (5.00-40.00)
[2019-01-31 19:11] LABS: T4, Free (Free Thyroxine) 1.2 ng/dL (0.80-1.80)
== END | disposition home or self-care (01) ==
LOC: LABWHC1 13:16
PROVIDERS: ATTEND Family Medicine
DX: Z00.00 Encounter for general adult medical examination without abnormal findings (principal); R97.20 Elevated prostate specific antigen [PSA]; I10 Essential (primary) hypertension
CPT/HCPCS: 36415; 80053; 80061; 84153; 84439; 84443; 85025

== ENCOUNTER 2019-03-22 09:57 | Emergency (ER) | payer OTHER ==
[2019-03-22 10:10] VITALS: RESP 16; TEMP 98.9
[2019-03-22] MEDS ORDERED: SODIUM CHLORIDE 0.9% 2,000 ML IV STA (10:30)
[2019-03-22] MEDS ORDERED: KETOROLAC 30 MG/ML 1 ML VIAL IVP STA (10:43)
[2019-03-22] MEDS ORDERED: ONDANSETRON 4 MG/2 ML VIAL IVP STA (10:43)
--- NOTE | 2019-03-22 10:45 | ED ---
Abdominal Pain HPI - General Chief Complaint: Abdominal Pain Stated Complaint: Abd Pain Time Seen by Provider: 03/22/19 10:30 Source: patient, RN notes reviewed Mode of arrival: wheelchair Limitations: no limitations - History of Present Illness Initial Comments: 58-year-old male presents emergency Department with chief complaint of abdominal pain. Patient states she's been having chronic issues with pancreatitis. He states that they do not know the cause denies any alcohol intake. Patient states his been in another hospital for this complaint. Patient's pain has worsened last 24 hours with associated nausea vomiting no diarrhea and states she is slightly constipated but states he has not been eating much. No fevers or chills no chest pain or shortness of breath. - Related Data Home Medications Medication Instructions Recorded Confirmed Bisoprol/Hydrochlorothiazide [Ziac 1 tab PO DAILY 03/22/19 03/22/19 10-6.25 MG] Tamsulosin HCl [Flomax] 0.4 mg PO DAILY 03/22/19 03/22/19 Previous Rx's Medication Instructions Recorded Ondansetron Odt [Zofran Odt] 4 mg PO Q8HR PRN #10 tab 03/22/19 Allergies Allergy/AdvReac Type Severity Reaction Status Date / Time Penicillins Allergy Rash/Hives/ Verified 03/22/19 10:21 Swelling Review of Systems ROS Statement: Those systems with pertinent positive or pertinent negative responses have been documented in the HPI. ROS Other: All systems not noted in ROS Statement are negative. Past Medical History Past Medical History: Asthma, Eye Disorder Additional Past Medical History / Comment(s): left eye macular degeneration History of Any Multi-Drug Resistant Organisms: None Reported Past Surgical History: Orthopedic Surgery Additional Past Surgical History / Comment(s): lung surg as infant-inhaled a piece of buddy hair used on a rolf tree", tooth extraction Past Anesthesia/Blood Transfusion Reactions: No Reported Reaction Past Psychological History: No Psychological Hx Reported Smoking Status: Current every day smoker Past Alcohol Use History: None Reported Past Drug Use History: Marijuana - Past Family History Mother Family Medical History: No Reported History Father Family Medical History: Liver Disease Additional Family Medical History / Comment(s): etoh- liver disease General Exam Limitations: no limitations General appearance: alert, in no apparent distress Head exam: Present: atraumatic, normocephalic, normal inspection Respiratory exam: Present: normal lung sounds bilaterally. Absent: respiratory distress, wheezes, rales, rhonchi, stridor Cardiovascular Exam: Present: regular rate, normal rhythm, normal heart sounds. Absent: systolic murmur, diastolic murmur, rubs, gallop, clicks GI/Abdominal exam: Present: soft, tenderness (Mild mid abdominal tenderness), normal bowel sounds. Absent: distended, guarding, rebound, rigid Back exam: Absent: CVA tenderness (R), CVA tenderness (L) Neurological exam: Present: alert, oriented X3, CN II-XII intact Skin exam: Present: warm, dry, intact, normal color. Absent: rash Course Vital Signs 03/22/19 10:08 Temperature 98.9 F Pulse Rate 93 Respiratory 16 Rate Blood Pressure 177/98 O2 Sat by Pulse 100 Oximetry Medical Decision Making - Medical Decision Making 58-year-old male presented for abdominal pain, nausea vomiting. Patient was concerned about possible pancreatitis that she he's had in the past. Amylase lipase within normals. Patient found to be mildly dehydrated given 2 L bolus. Patient said no recurrent nausea vomiting. Patient we discharged with Zofran. Return parameters were discussed. - Lab Data Result diagrams: 03/22/19 11:12 03/22/19 11:12 Lab Results 03/22/19 03/22/19 Range/Units 11:12 11:12 WBC 12.7 H (3.8-10.6) k/uL RBC 5.75 (4.30-5.90) m/uL Hgb 16.0 (13.0-17.5) gm/dL Hct 49.6 (39.0-53.0) % MCV 86.3 (80.0-100.0) fL MCH 27.8 (25.0-35.0) pg MCHC 32.3 (31.0-37.0) g/dL RDW 13.3 (11.5-15.5) % Plt Count 205 (150-450) k/uL Neutrophils % 90 % Lymphocytes % 5 % Monocytes % 3 % Eosinophils % 0 % Basophils % 0 % Neutrophils # 11.4 H (1.3-7.7) k/uL Lymphocytes # 0.7 L (1.0-4.8) k/uL Monocytes # 0.4 (0-1.0) k/uL Eosinophils # 0.0 (0-0.7) k/uL Basophils # 0.0 (0-0.2) k/uL Sodium 146 H (137-145) mmol/L Potassium 4.3 (3.5-5.1) mmol/L Chloride 100 (98-107) mmol/L Carbon Dioxide 29 (22-30) mmol/L Anion Gap 17 mmol/L BUN 25 H (9-20) mg/dL Creatinine 1.42 H (0.66-1.25) mg/dL Est GFR (CKD-EPI)AfAm 62 (>60 ml/min/1.73 sqM) Est GFR (CKD-EPI)NonAf 54 (>60 ml/min/1.73 sqM) Glucose 189 H (74-99) mg/dL Calcium 11.8 H (8.4-10.2) mg/dL Total Bilirubin 0.9 (0.2-1.3) mg/dL AST 26 (17-59) U/L ALT 30 (21-72) U/L Alkaline Phosphatase 78 (38-126) U/L Total Protein 9.0 H (6.3-8.2) g/dL Albumin 5.7 H (3.5-5.0) g/dL Amylase 104 (30-110) U/L Lipase 56 (23-300) U/L Serum Alcohol <10 mg/dL Disposition Clinical Impression: Dehydration, Abdominal pain, Nausea & vomiting Disposition: HOME SELF-CARE Condition: Stable Instructions (If sedation given, give patient instructions): Abdominal Pain (ED) Additional Instructions: Please return to the Emergency Department if symptoms worsen or any other concerns. Prescriptions: Ondansetron Odt [Zofran Odt] 4 mg PO Q8HR PRN #10 tab PRN Reason: Nausea Is patient prescribed a controlled substance at d/c from ED?: No Referrals: Ehsan East MD [Primary Care Provider] - 1-2 days Time of Disposition: 12:41
[2019-03-22 11:17] LABS: Basophils % (A) 0 %; Eosinophils % (A) 0 %; HCT 49.6 % (39.0-53.0); Lymphocytes # (A) 0.7 k/uL (1.0-4.8); Lymphocytes % (A) 5 %; MCH 27.8 pg (25.0-35.0); MCHC 32.3 g/dL (31.0-37.0); MCV 86.3 fL (80.0-100.0); Mean Platelet Volume 7.7; Monocytes # (A) 0.4 k/uL (0-1.0); Monocytes % (A) 3 %; Neutrophils # (A) 11.4 k/uL (1.3-7.7); Neutrophils % (A) 90 %; Platelet Count 205 k/uL (150-450); RBC 5.75 m/uL (4.30-5.90); RDW 13.3 % (11.5-15.5); WBC 12.7 k/uL (3.8-10.6)
[2019-03-22 11:35] LABS: ALT 30 U/L (21-72); AST 26 U/L (17-59); Albumin 5.7 g/dL (3.5-5.0); Alcohol <10 mg/dL; Alkaline Phosphatase 78 U/L (38-126); Amylase 104 U/L (30-110); Anion Gap 17 mmol/L; Blood Urea Nitrogen 25 mg/dL (9-20); Calcium 11.8 mg/dL (8.4-10.2); Carbon Dioxide 29 mmol/L (22-30); Chloride 100 mmol/L (98-107); Glucose 189 mg/dL (74-99); Lipase 56 U/L (23-300); Potassium 4.3 mmol/L (3.5-5.1); Sodium 146 mmol/L (137-145); Total Bilirubin 0.9 mg/dL (0.2-1.3)
[2019-03-22 13:09] VITALS: BP 148/85; PULSE 75
== END 2019-03-22 13:09 | disposition home or self-care (01) ==
LOC: EC 09:57
DX: E86.0 Dehydration (principal); R10.9 Unspecified abdominal pain; R11.2 Nausea with vomiting, unspecified; K59.00 Constipation, unspecified; F17.200 Nicotine dependence, unspecified, uncomplicated; Z88.0 Allergy status to penicillin; Z79.899 Other long term (current) drug therapy; Z87.19 Personal history of other diseases of the digestive system; Z83.79 Family history of other diseases of the digestive system
CPT/HCPCS: 36415; 80053; 82150; 83690; 85025; 99284; 96374; 96375; 96361 ×2; G0480; J2405; J1885; 80320

== ENCOUNTER 2019-06-15 09:11 | Observation (INO) | payer OTHER ==
[2019-06-15] MEDS ORDERED: SODIUM CHLORIDE 0.9% 1,000 ML IV STA ×2 (09:50)
[2019-06-15] MEDS ORDERED: ONDANSETRON 4 MG/2 ML VIAL IVP STA ×2 (09:50→12:42)
[2019-06-15] MEDS ORDERED: PANTOPRAZOLE 40 MG/10 ML VIAL IVP STA (09:50)
[2019-06-15] MEDS ORDERED: HYDROmorphone 1 MG/ML 1 ML SYRINGE IVP STA (09:50)
--- NOTE | 2019-06-15 09:53 | ED ---
General Adult HPI - General Chief complaint: Abdominal Pain Stated complaint: Stomach pain/vomiting Time Seen by Provider: 06/15/19 09:24 Source: patient, RN notes reviewed Mode of arrival: ambulatory Limitations: no limitations - History of Present Illness Initial comments: Patient is a pleasant 58-year-old male presenting to the emergency Department w ith complaints of abdominal discomfort. Onset of symptoms was yesterday. Symptoms worsened early this morning. Patient has had nausea and vomiting, approximately 5 times. Discomfort is mid abdomen without radiation. Patient has had similar symptoms twice previously associated with pancreatitis. Patient denies any significant alcohol use. No fevers. No constipation or diarrhea. Discomfort is somewhat severe. Discomfort is described as an ache. - Related Data Home Medications Medication Instructions Recorded Confirmed Bisoprol/Hydrochlorothiazide [Ziac 1 tab PO DAILY 03/22/19 06/15/19 10-6.25 MG] Tamsulosin HCl [Flomax] 0.4 mg PO DAILY 03/22/19 06/15/19 Previous Rx's Medication Instructions Recorded Ondansetron Odt [Zofran Odt] 4 mg PO Q8HR PRN #10 tab 03/22/19 Ondansetron Odt [Zofran Odt] 4 mg PO Q8HR PRN #10 tab 06/15/19 Allergies Allergy/AdvReac Type Severity Reaction Status Date / Time Penicillins Allergy Rash/Hives/ Verified 06/15/19 10:06 Swelling Review of Systems ROS Statement: Those systems with pertinent positive or pertinent negative responses have been documented in the HPI. ROS Other: All systems not noted in ROS Statement are negative. Constitutional: Denies: fever Eyes: Denies: eye pain ENT: Denies: ear pain Respiratory: Denies: cough Cardiovascular: Denies: chest pain Endocrine: Denies: fatigue Gastrointestinal: Reports: abdominal pain, nausea, vomiting. Denies: diarrhea, constipation Genitourinary: Denies: dysuria Skin: Denies: rash Neurological: Denies: weakness Past Medical History Past Medical History: Asthma, Eye Disorder Additional Past Medical History / Comment(s): left eye macular degeneration History of Any Multi-Drug Resistant Organisms: None Reported Past Surgical History: Orthopedic Surgery Additional Past Surgical History / Comment(s): lung surg as infant-inhaled a piece of buddy hair used on a rolf tree", tooth extraction Past Anesthesia/Blood Transfusion Reactions: No Reported Reaction Past Psychological History: No Psychological Hx Reported Smoking Status: Current every day smoker Past Alcohol Use History: None Reported Past Drug Use History: Marijuana - Past Family History Mother Family Medical History: No Reported History Father Family Medical History: Liver Disease Additional Family Medical History / Comment(s): etoh- liver disease General Exam Limitations: no limitations General appearance: alert, in no apparent distress Head exam: Present: atraumatic Eye exam: Present: normal appearance, PERRL ENT exam: Present: normal oropharynx Neck exam: Present: normal inspection Respiratory exam: Present: normal lung sounds bilaterally Cardiovascular Exam: Present: regular rate, normal rhythm Expanded Peripheral pulses: 2+: Posterior Tibialis (R), Posterior Tibialis (L) GI/Abdominal exam: Present: soft, tenderness (Moderate epigastric tenderness to palpation), normal bowel sounds. Absent: distended, guarding, rebound, rigid, pulsatile mass Extremities exam: Present: normal inspection. Absent: pedal edema, calf tenderness Neurological exam: Present: alert Psychiatric exam: Present: normal affect, normal mood Skin exam: Present: normal color Course Vital Signs 06/15/19 06/15/19 06/15/19 09:19 10:15 12:21 Temperature 97.6 F 97.9 F Pulse Rate 96 88 78 Respiratory 22 18 18 Rate Blood Pressure 166/115 181/107 167/114 O2 Sat by Pulse 100 91 L 97 Oximetry Medical Decision Making - Medical Decision Making Patient reevaluated and resting comfortably in bed. Patient complains of some nausea however is improved and requests water. Blood pressure remains somewhat high. Patient was unable to take his blood pressure medication today secondary to emesis. Abdomen is soft with minimal tenderness in the epigastric region. Patient is updated on results and need for follow-up. Patient does request medication for nausea at home. Patient states he does have some from previous however there is only 2 pills left. - Lab Data Result diagrams: 06/15/19 10:15 06/15/19 10:15 Lab Results 06/15/19 06/15/19 06/15/19 Range/Units 10:15 10:15 10:15 WBC 12.2 H (3.8-10.6) k/uL RBC 6.52 H (4.30-5.90) m/uL Hgb 18.1 H (13.0-17.5) gm/dL Hct 56.8 H (39.0-53.0) % MCV 87.0 (80.0-100.0) fL MCH 27.7 (25.0-35.0) pg MCHC 31.9 (31.0-37.0) g/dL RDW 13.0 (11.5-15.5) % Plt Count 224 (150-450) k/uL Neutrophils % 87 % Lymphocytes % 7 % Monocytes % 4 % Eosinophils % 0 % Basophils % 1 % Neutrophils # 10.6 H (1.3-7.7) k/uL Lymphocytes # 0.8 L (1.0-4.8) k/uL Monocytes # 0.5 (0-1.0) k/uL Eosinophils # 0.0 (0-0.7) k/uL Basophils # 0.1 (0-0.2) k/uL PT 11.8 (9.0-12.0) sec INR 1.1 (<1.2) APTT 25.7 (22.0-30.0) sec Sodium 143 (137-145) mmol/L Potassium 4.6 (3.5-5.1) mmol/L Chloride 104 (98-107) mmol/L Carbon Dioxide 18 L (22-30) mmol/L Anion Gap 21 mmol/L BUN 22 H (9-20) mg/dL Creatinine 1.80 H (0.66-1.25) mg/dL Est GFR (CKD-EPI)AfAm 47 (>60 ml/min/1.73 sqM) Est GFR (CKD-EPI)NonAf 40 (>60 ml/min/1.73 sqM) Glucose 210 H (74-99) mg/dL Calcium 11.6 H (8.4-10.2) mg/dL Total Bilirubin 1.3 (0.2-1.3) mg/dL AST 46 (17-59) U/L ALT 15 L (21-72) U/L Alkaline Phosphatase 104 (38-126) U/L Total Protein 9.8 H (6.3-8.2) g/dL Albumin 5.8 H (3.5-5.0) g/dL Amylase 197 H (30-110) U/L Lipase 323 H (23-300) U/L - Radiology Data Radiology results: report reviewed (Computed tomography scan of the abdomen pelvis shows nonspecific abdomen. Stomach is distended with some fluid-filled small bowel loops. Correlate for gastritis or gastroenteritis. COPD with suspected atelectasis or scar favored over neoplasm.), image reviewed (Abdominal x-ray shows nonobstructive pattern. No pneumoperitoneum.) Disposition Clinical Impression: Acute gastritis, Abdominal pain Disposition: HOME SELF-CARE Condition: Stable Instructions (If sedation given, give patient instructions): Abdominal Pain (ED) Additional Instructions: Please do follow-up to primary care physician in the next day or 2 for recheck. Return for not tolerating fluids or oral intake, increased pain, fevers, worsening symptoms or other concerns. Your prescription has been sent to [facility]. Prescriptions: Ondansetron Odt [Zofran Odt] 4 mg PO Q8HR PRN #10 tab PRN Reason: Nausea Is patient prescribed a controlled substance at d/c from ED?: No Referrals: Ehsan East MD [Primary Care Provider] - 1-2 days Time of Disposition: 12:45
[2019-06-15 10:23] LABS: Basophils # (A) 0.1 k/uL (0-0.2); Basophils % (A) 1 %; Eosinophils % (A) 0 %; HCT 56.8 % (39.0-53.0); HGB 18.1 gm/dL (13.0-17.5); Lymphocytes # (A) 0.8 k/uL (1.0-4.8); Lymphocytes % (A) 7 %; MCH 27.7 pg (25.0-35.0); MCHC 31.9 g/dL (31.0-37.0); Mean Platelet Volume 8.2; Monocytes # (A) 0.5 k/uL (0-1.0); Monocytes % (A) 4 %; Neutrophils # (A) 10.6 k/uL (1.3-7.7); Neutrophils % (A) 87 %; Platelet Count 224 k/uL (150-450); RBC 6.52 m/uL (4.30-5.90); WBC 12.2 k/uL (3.8-10.6)
[2019-06-15 10:34] LABS: Albumin 5.8 g/dL (3.5-5.0); Calcium 11.6 mg/dL (8.4-10.2); Total Bilirubin 1.3 mg/dL (0.2-1.3); Total Protein 9.8 g/dL (6.3-8.2)
--- NOTE | 2019-06-15 10:38 | XR ---
EXAMINATION TYPE: XR KUB DATE OF EXAM: 06/15/2019 10:25 AM CLINICAL HISTORY: Medial abdominal pain. History of gastritis and pancreatitis. TECHNIQUE: Single upright image of the abdomen is obtained. COMPARISON: None. FINDINGS: No evidence of pneumoperitoneum. Cluster loops of nondilated bowel in the right lower quadr ant. Lung bases are well aerated. Levoscoliosis of the lumbar spine is noted. Mild degenerative ace es. Paucity of bowel gas is seen in the upper abdomen, nonspecific.. IMPRESSION: Nonobstructive bowel gas pattern with no pneumoperitoneum seen. Nonspecific paucity of yecenia wel gas in the upper abdomen.
[2019-06-15 10:42] LABS: Potassium 4.6 mmol/L (3.5-5.1)
[2019-06-15 10:48] LABS: INR 1.1 (<1.2); Partial Thromboplastin Time 25.7 sec (22.0-30.0); Prothrombin Time 11.8 sec (9.0-12.0)
--- NOTE | 2019-06-15 11:45 | CT ---
EXAMINATION TYPE: CT abdomen pelvis wo con DATE OF EXAM: 06/15/2019 COMPARISON: Pain HISTORY: Stomach pains CT DLP: 283.6 mGycm Automated exposure control for dose reduction was used. TECHNIQUE: Helical acquisition of images was performed from the lung bases through the pelvis. FINDINGS: LUNG BASES: Emphysematous changes no subsegmental consolidation at the left lung base likely represen ting scar or atelectasis. LIVER/GB: No significant abnormality is appreciated. PANCREAS: No significant abnormality is seen. SPLEEN: No significant abnormality is seen. ADRENALS: No significant abnormality is seen. KIDNEYS: No significant abnormality is seen. \ADENOPATHY: None visualized. OSSEOUS STRUCTURES: Multilevel hypertrophic and degenerative changes with most marked findings at L5 -S1 BOWEL: Bowel gas pattern is nonspecific. Appendix is normal. Diverticulosis of the colon. Assessment for wall thickening is limited by lack of contrast. No oral contrast was administered therefore ass essment for wall thickness is limited OTHER: Aorta of normal caliber with atherosclerotic changes. IMPRESSION: 1. Nonspecific abdomen. Stomach is distended and there are some fluid-filled small bowel loops. Corre late clinically for underlying underlying gastritis or gastroenteritis in the differential diagnosis. 2. COPD with suspected left basilar atelectasis or scar favored over neoplasm correlate clinically.
[2019-06-15] MEDS ORDERED: BISOPROLOL-HCTZ 10-6.25 MG 1 EACH TAB PO STA (12:44)
[2019-06-15] MEDS ORDERED: hydrALAZINE HCL 20 MG/ML 1 ML VIAL IVP STA (14:13)
[2019-06-15] MEDS ORDERED: ONDANSETRON 4 MG/2 ML VIAL IVP PRN (15:33)
[2019-06-15] MEDS ORDERED: NALOXONE 0.4 MG/ML 1 ML VIAL IV PRN (15:33)
--- NOTE | 2019-06-15 15:33 | ED ---
Medical Decision Making - Medical Decision Making Patient has had continued symptoms and doesn't feel comfortable with discharge. Patient still feels nauseated. Blood pressure is somewhat improved. Case was discussed in detail with Dr. East who is familiar with this patient. He will admit for observation, recommends no narcotics. - Lab Data Result diagrams: 06/15/19 10:15 06/15/19 10:15 Lab Results 06/15/19 06/15/19 06/15/19 Range/Units 10:15 10:15 10:15 WBC 12.2 H (3.8-10.6) k/uL RBC 6.52 H (4.30-5.90) m/uL Hgb 18.1 H (13.0-17.5) gm/dL Hct 56.8 H (39.0-53.0) % MCV 87.0 (80.0-100.0) fL MCH 27.7 (25.0-35.0) pg MCHC 31.9 (31.0-37.0) g/dL RDW 13.0 (11.5-15.5) % Plt Count 224 (150-450) k/uL Neutrophils % 87 % Lymphocytes % 7 % Monocytes % 4 % Eosinophils % 0 % Basophils % 1 % Neutrophils # 10.6 H (1.3-7.7) k/uL Lymphocytes # 0.8 L (1.0-4.8) k/uL Monocytes # 0.5 (0-1.0) k/uL Eosinophils # 0.0 (0-0.7) k/uL Basophils # 0.1 (0-0.2) k/uL PT 11.8 (9.0-12.0) sec INR 1.1 (<1.2) APTT 25.7 (22.0-30.0) sec Sodium 143 (137-145) mmol/L Potassium 4.6 (3.5-5.1) mmol/L Chloride 104 (98-107) mmol/L Carbon Dioxide 18 L (22-30) mmol/L Anion Gap 21 mmol/L BUN 22 H (9-20) mg/dL Creatinine 1.80 H (0.66-1.25) mg/dL Est GFR (CKD-EPI)AfAm 47 (>60 ml/min/1.73 sqM) Est GFR (CKD-EPI)NonAf 40 (>60 ml/min/1.73 sqM) Glucose 210 H (74-99) mg/dL Calcium 11.6 H (8.4-10.2) mg/dL Total Bilirubin 1.3 (0.2-1.3) mg/dL AST 46 (17-59) U/L ALT 15 L (21-72) U/L Alkaline Phosphatase 104 (38-126) U/L Total Protein 9.8 H (6.3-8.2) g/dL Albumin 5.8 H (3.5-5.0) g/dL Amylase 197 H (30-110) U/L Lipase 323 H (23-300) U/L Disposition Clinical Impression: Acute gastritis, Abdominal pain Disposition: ADMITTED IP TO THIS HOSP Condition: Stable Instructions (If sedation given, give patient instructions): Abdominal Pain (ED) Additional Instructions: Please do follow-up to primary care physician in the next day or 2 for recheck. Return for not tolerating fluids or oral intake, increased pain, fevers, worsening symptoms or other concerns. Your prescription has been sent to [facility]. Prescriptions: Ondansetron Odt [Zofran Odt] 4 mg PO Q8HR PRN #10 tab PRN Reason: Nausea Is patient prescribed a controlled substance at d/c from ED?: No Referrals: Ehsan East MD [Primary Care Provider] - 1-2 days
[2019-06-15] MEDS: SODIUM CHLORIDE 0.9% 1,000 ML IV SCH ×2 (15:48→20:22)
[2019-06-15] MEDS: TAMSULOSIN 0.4 MG CAP.ER.24H PO SCH (18:23)
[2019-06-15 18:36] VITALS: BMI 19.6
[2019-06-15 20:33] LABS: Appearance,Urine Clear (Clear); Bilirubin,Urine Negative (Negative); Blood,Urine Negative (Negative); Color,Urine Yellow; Glucose,Urine (UA) Trace (Negative); Hyaline Casts,Urine 17 /lpf (0-2); Ketones,Urine 2+ (Negative); Leukocyte Esterase,Urine Small (Negative); Mucus,Urine Few /hpf; Nitrite,Urine Negative (Negative); Protein,Urine 3+ (Negative); RBC,Urine 2 /hpf (0-5); Specific Gravity,Urine 1.023 (1.001-1.035); Urobilinogen,Urine <2.0 mg/dL (<2.0); WBC,Urine 27 /hpf (0-5)
[2019-06-16] MEDS ORDERED: PROCHLORPERAZINE 10 MG TAB PO PRN (02:39)
[2019-06-16] MEDS ORDERED: KETOROLAC 30 MG/ML 1 ML VIAL IVP PRN (02:39)
[2019-06-16] MEDS: METOCLOPRAMIDE 5 MG/ML 2 ML VIAL IVP SCH ×3 (03:07→13:30)
[2019-06-16] MEDS: TAMSULOSIN 0.4 MG CAP.ER.24H PO SCH (07:45)
[2019-06-16 08:23] LABS: HCT 45.1 % (39.0-53.0); MCH 27.5 pg (25.0-35.0); MCHC 31.1 g/dL (31.0-37.0); MCV 88.5 fL (80.0-100.0); Mean Platelet Volume 8.4; Platelet Count 167 k/uL (150-450); RDW 14.1 % (11.5-15.5); WBC 10.6 k/uL (3.8-10.6)
[2019-06-16 08:25] LABS: Calcium 9.5 mg/dL (8.4-10.2); Potassium 4.3 mmol/L (3.5-5.1); Total Bilirubin 0.7 mg/dL (0.2-1.3); Total Protein 6.4 g/dL (6.3-8.2)
[2019-06-16] MEDS ORDERED: PANTOPRAZOLE 40 MG/10 ML VIAL IV SCH (09:00)
[2019-06-16] MEDS: SODIUM CHLORIDE 0.9% 1,000 ML IV SCH (09:37)
[2019-06-16 10:50] LABS: Lymphocytes # (M) 1.38 k/uL (1.0-4.8); Monocytes # (M) 0.85 k/uL (0-1.0); Neutrophils % (M) 79 %; Nucleated Red Blood Cells 0 /100 WBC (0-0); Total Cells Counted 100
[2019-06-16 13:00] VITALS: BP 147/70; PULSE 63; RESP 16; TEMP 97.9
--- NOTE | 2019-06-16 14:04 | P.HPIM ---
History of Present Illness H&P Date: 06/16/19 Chief Complaint: abdominal pain is a 58-year-old gentleman with a history of nicotine dependence, occasional use of marijuana, asthma, eye disorder/left eye macular degeneration and multiple other medical issues, presented to the ER with worsening abdominal discomfort,accompanied by nausea, vomiting multiple times. Reports similar prior occurrence when he had pancreatitis.denies alcohol use.denies fevers.also reports he was unable to take his antihypertensives given his nausea and vomiting,SBP on admission 160s to 190s. Denies chest pain, palpitations, shortness of breath denies constipation, diarrhea.afebrile, T-max 99.6,WBC 12.2, now normalized.BUN 22, 1.8,improving with IV fluids, BUN currently 27 and creatinine 1.45.amylase 197, lipase 323 trending up to 785.UA negative.KUB reporting nondestructive bowel gas pattern without Pneumoperitoneum seen, nonspecific paucity of bowel gas in the upper abdomen.abdomen/pelvis CT reporting nonspecific abdomen, stomach distended with some fluid-filled small bowel loops, possible underlying gastritis or gastroenteritis, COPD with suspected left basilar atelectasis or scar fever over neoplasm.symptoms and abdominal discomfort persisted, patient admitted under observation.tolerating clear liquid diet with no further nausea vomiting, complaints of abdominal spasms. Review of Systems ROS Statement: Those systems with pertinent positive or pertinent negative responses have been documented in the HPI. ROS Other: All systems not noted in ROS Statement are negative. Past Medical History Past Medical History: Asthma, Eye Disorder Additional Past Medical History / Comment(s): left eye macular degeneration History of Any Multi-Drug Resistant Organisms: None Reported Past Surgical History: Orthopedic Surgery Additional Past Surgical History / Comment(s): lung surg as infant-inhaled a piece of buddy hair used on a [employer] tree", left lower lobe extraction. left arm break Past Anesthesia/Blood Transfusion Reactions: No Reported Reaction Past Psychological History: No Psychological Hx Reported Smoking Status: Current every day smoker Past Alcohol Use History: None Reported Additional Past Alcohol Use History / Comment(s): started smoking at age 16 smokes 1ppd Past Drug Use History: Marijuana Additional Drug Use History / Comment(s): occ use of marijuana - Past Family History Mother Family Medical History: No Reported History Father Family Medical History: Liver Disease Additional Family Medical History / Comment(s): etoh- liver disease Medications and Allergies Home Medications Medication Instructions Recorded Confirmed Type Bisoprol/Hydrochlorothiazide [Ziac 1 tab PO DAILY 03/22/19 06/15/19 History 10-6.25 MG] Ondansetron Odt [Zofran Odt] 4 mg PO Q8HR PRN #10 tab 03/22/19 06/15/19 Rx Tamsulosin HCl [Flomax] 0.4 mg PO DAILY 03/22/19 06/15/19 History Ondansetron Odt [Zofran Odt] 4 mg PO Q8HR PRN #10 tab 06/15/19 Rx Allergies Allergy/AdvReac Type Severity Reaction Status Date / Time Penicillins Allergy Rash/Hives/ Verified 06/15/19 10:06 Swelling Physical Exam Vitals: Vital Signs Temp Pulse Pulse Resp BP BP Pulse Ox 06/16/19 08:00 18 06/16/19 04:34 98.2 F 91 18 110/64 96 06/16/19 00:00 18 06/15/19 20:35 99.6 F 86 18 165/78 99 06/15/19 17:15 98.2 F 99 18 168/94 99 06/15/19 14:55 99 18 161/95 97 06/15/19 13:57 65 18 191/105 97 06/15/19 12:21 97.9 F 78 18 167/114 97 Intake and Output 06/15/19 06/16/19 06/16/19 22:59 06:59 14:59 Intake Total 1360 1280 Output Total 480 Balance 880 1280 Intake: Intake, IV Titration 400 800 Amount Sodium Chloride 0.9% 1, 400 800 000 ml @ 120 mls/hr IV . Q8H20M [facility] Rx#:[id number] Oral 960 480 Output: Emesis 480 Other: # Voids 1 2 PHYSICAL EXAM: VITAL SIGNS: [as above] GENERAL: sitting up in bed, no acute distress HEENT: Conjunctivae normal. eyes normal. NECK: No JVD. No thyroid enlargement. No LNs CARDIOVASCULAR: S1, S2 regular.. No murmur RESPIRATION: Breath sounds diminished in the bases. No rhonchi or crackles. No bronchial breathing. ABDOMEN: Soft, nondistended, epigastric tenderness to palpation. No guarding. no masses palpable. No ascites, No hepatosplenomegaly.Bowel sounds heard. LEGS: No edema. no swelling PSYCHIATRY: Alert and oriented X3, mood and affect normal. NERVOUS SYSTEM: Cranial N 2-12 grossly normal. Moves all 4 limbs. Diffuse weakness No focal deficits. Strength and sensation grossly intact.. Skin: no lesions, no rash Lymphatic system. No LN neck axilla or groin. Results CBC & Chem 7: 06/16/19 07:12 06/16/19 07:12 Labs: Abnormal Lab Results - Last 24 Hours (Table) 06/15/19 06/16/19 06/16/19 Range/Units 20:20 07:12 07:12 Neutrophils # (Manual) 8.37 H (1.3-7.7) k/uL Carbon Dioxide 31 H (22-30) mmol/L BUN 27 H (9-20) mg/dL Creatinine 1.45 H (0.66-1.25) mg/dL ALT 20 L (21-72) U/L Amylase 151 H (30-110) U/L Lipase 785 H (23-300) U/L Urine Protein 3+ H (Negative) Urine Glucose (UA) Trace H (Negative) Urine Ketones 2+ H (Negative) Ur Leukocyte Esterase Small H (Negative) Urine WBC 27 H (0-5) /hpf Hyaline Casts 17 H (0-2) /lpf Urine Mucus Few H (None) /hpf Thrombosis Risk Factor Assmnt - Choose All That Apply Any of the Below Risk Factors Present?: Yes Each Factor Represents 1 point: Age 41-60 years Other Risk Factors: No Other congenital or acquired thrombophilia - If yes, enter type in comment: No Thrombosis Risk Factor Assessment Total Risk Factor Score: 1 Thrombosis Risk Factor Assessment Level: Low Risk Assessment and Plan Assessment: -nausea, vomiting with abdominal pain, possible acute gastritis or gastroenteritis -COPD with suspected left basilar atelectasis or scar, favored over neoplasm. Further outpatient workup with pulmonary recommended. -chronic asthma -Macular degeneration -Ongoing nicotine dependence -Occasional marijuana use Plan: Continue on gentle IV fluid hydration, PPI, Zofran, Reglan, Compazine. Toradol for pain management.home meds have been reviewed and resumed including antihypertensive.maintain gentle IV fluid hydration, increase amputation as tolerated. Smoking cessation readdressed. Further recommendations to follow. The impression and plan of care has been dictated as directed. : I performed a history and examination of this patient, discussed the same with the dictator. I agree with the dictator's note ,documented as a scribe. Any additional findings or plans will be noted.
--- NOTE | 2019-06-16 15:44 | P.DS ---
Providers Date of admission: 06/15/19 15:33 Expected date of discharge: 06/16/19 Attending physician: Ehsan East Primary care physician: Ehsan East [facility] Course: please refer to H&P for final diagnoses and specifics.. Significant clinical improvement, patient is being discharged home in a stable condition with guarded prognosis. The impression and plan of care has been dictated as directed. : I performed a history and examination of this patient, discussed the same with the dictator. I agree with the dictator's note ,documented as a scribe. Any additional findings or plans will be noted. Patient Condition at Discharge: Stable Plan - Discharge Summary Discharge Rx Participant: Yes New Discharge Prescriptions: New Ondansetron Odt [Zofran Odt] 4 mg PO Q8HR PRN #10 tab PRN Reason: Nausea Metoclopramide [Reglan] 10 mg PO ACHS #12 tab Bisoprolol [Zebeta] 10 mg PO DAILY #10 tablet Continue Tamsulosin HCl [Flomax] 0.4 mg PO DAILY Ondansetron Odt [Zofran ODT] 4 mg PO Q8HR PRN #10 tab PRN Reason: Nausea Discharge Medication List Ondansetron Odt [Zofran ODT] 4 mg PO Q8HR PRN #10 tab 03/22/19 [Rx] Tamsulosin HCl [Flomax] 0.4 mg PO DAILY 03/22/19 [History] Ondansetron Odt [Zofran Odt] 4 mg PO Q8HR PRN #10 tab 06/15/19 [Rx] Bisoprolol [Zebeta] 10 mg PO DAILY #10 tablet 06/16/19 [Rx] Metoclopramide [Reglan] 10 mg PO ACHS #12 tab 06/16/19 [Rx] Follow up Appointment(s)/Referral(s): Ehsan East MD [Primary Care Provider] - 06/20/19 9:15 am Ambulatory/Diagnostic Orders: Complete Blood Count w/diff [LAB.AMB] Time Frame: 3 Days, Location: None Selected Patient Instructions/Handouts: Metoclopramide (By mouth), Ondansetron (By mouth), Bisoprolol (By mouth), Gastritis (DC), Abdominal Pain (ED) Activity/Diet/Wound Care/Special Instructions: Return for not tolerating fluids or oral intake, increased pain, fevers, worsening symptoms or other concerns. Your prescription has been sent to [facility].
[2019-06-17] MEDS ORDERED: PANTOPRAZOLE 40 MG TABLET PO SCH (07:30)
== END 2019-06-16 15:47 | disposition home or self-care (01) ==
LOC: EC 09:11 → 3NMEDONC 15:33
PROVIDERS: ADMIT Family Medicine; ATTEND Family Medicine
DX: R11.2 Nausea with vomiting, unspecified (principal); R10.13 Epigastric pain; J44.9 Chronic obstructive pulmonary disease, unspecified; H35.30 Unspecified macular degeneration; F17.210 Nicotine dependence, cigarettes, uncomplicated; F12.90 Cannabis use, unspecified, uncomplicated; Z79.899 Other long term (current) drug therapy; Z88.0 Allergy status to penicillin; Z83.79 Family history of other diseases of the digestive system; Z81.1 Family history of alcohol abuse and dependence
CPT/HCPCS: 96376 ×3; 96361 ×3; 96375 ×2; 96374; 99285; 36415; 80053 ×2; 82150 ×2; 83690 ×2; 85025 ×2; 85610; 85730; 81001; 74018; 74176; G0378 ×2; J0360; J2765; J2405; J1885; J1170; C9113 ×2

== ENCOUNTER → 2019-06-18 | Outpatient (CLI) | payer OTHER ==
[2019-06-18 11:39] LABS: Basophils # (A) 0.1 k/uL (0-0.2); Basophils % (A) 1 %; Eosinophils % (A) 0 %; HCT 51.7 % (39.0-53.0); HGB 16.1 gm/dL (13.0-17.5); Lymphocytes # (A) 1.9 k/uL (1.0-4.8); Lymphocytes % (A) 18 %; MCH 28.3 pg (25.0-35.0); MCHC 31.2 g/dL (31.0-37.0); MCV 90.5 fL (80.0-100.0); Mean Platelet Volume 9.4; Monocytes # (A) 0.7 k/uL (0-1.0); Monocytes % (A) 7 %; Neutrophils # (A) 7.9 k/uL (1.3-7.7); Neutrophils % (A) 72 %; Platelet Count 175 k/uL (150-450); RBC 5.71 m/uL (4.30-5.90); RDW 14.9 % (11.5-15.5)
[2019-06-19 09:47] LABS: African American GFR (CKD) 53.9 (60.0-200.0); Anion Gap 12.3 mmol/L (4.00-12.00); BUN/Creat Ratio 21.88 Ratio (12.00-20.00); Calcium 10.5 mg/dL (8.7-10.3); Carbon Dioxide 28.7 mmol/L (21.6-31.8); Potassium 3.7 mmol/L (3.5-5.5)
== END | disposition home or self-care (01) ==
LOC: LABMAIN 10:00
PROVIDERS: ATTEND Family Medicine
DX: K29.70 Gastritis, unspecified, without bleeding (principal); N17.9 Acute kidney failure, unspecified
CPT/HCPCS: 36415; 80048; 85025

== ENCOUNTER → 2019-07-27 | Outpatient (CLI) | payer OTHER ==
--- NOTE | 2019-07-28 07:28 | XR ---
EXAMINATION TYPE: XR shoulder complete LT DATE OF EXAM: 07/27/2019 CLINICAL HISTORY: Left shoulder and clavicle pain. Known old left clavicular fracture. TECHNIQUE: Three views of the left shoulder are obtained. COMPARISON: Chest x-ray dated 04/07/2018. FINDINGS: Subtle horizontally oriented lucency is seen through the distal clavicle. This appears to r elate to a nondisplaced fracture is noncomminuted. No callus formation is seen and this is not eviden t on the prior chest x-ray of 04/07/2018. The acromioclavicular and glenohumeral joint spaces appear aligned. Mild degenerative changes of the acromio clavicular joint are seen as small marginal osteoph ytes. The visualized ribs are intact and unremarkable. IMPRESSION: Acute nondisplaced, noncomminuted left distal clavicular fracture and mild left acromiocl avicular arthropathy.
== END | disposition home or self-care (01) ==
LOC: RADXRMAIN 16:23
PROVIDERS: ATTEND Family Medicine
DX: S42.035A Nondisplaced fracture of lateral end of left clavicle, initial encounter for closed fracture (principal); M19.012 Primary osteoarthritis, left shoulder

== ENCOUNTER → 2019-08-11 | Outpatient (CLI) | payer OTHER ==
--- NOTE | 2019-08-11 12:02 | XR ---
EXAMINATION TYPE: XR clavicle LT DATE OF EXAM: 08/11/2019 COMPARISON: Left shoulder same date HISTORY: S 40 2.021D TECHNIQUE: Two-view left clavicle FINDINGS: No acute fracture or dislocation is evident. No subacute fractures are evident. Sternal cla vicular junction is normal. There is hypertrophy of the acromioclavicular junction. Lucency at the di stal clavicle is less well visualized which may indicate some underlying healing Significant downward spurring is not evident. Follow-up exams can be performed 7-10 days from acute trauma for continued pain. IMPRESSION: 1. Healing distal clavicular fracture
--- NOTE | 2019-08-11 12:08 | XR ---
EXAMINATION TYPE: XR shoulder complete LT DATE OF EXAM: 08/11/2019 COMPARISON: 07/27/2019 HISTORY: Pain TECHNIQUE: Shoulder examined in 3 FINDINGS: The humeral head articulates with the glenoid. The acromio-clavicular junction is normal. Lucency at the superior margin of the distal left clavicle remains present. Mean of these well visual ized. Differential could include stable healing fracture. Acromioclavicular junction degenerative wojciech nges are noted. A follow up study can be performed 7-10 days from acute trauma for continued pain. IMPRESSION: 1. Stable or slightly improving distal left clavicular fracture. 2. Degenerative changes acromioclavicular junction.
[2019-08-11 13:27] LABS: ALT 22 U/L (21-72); AST 21 U/L (17-59); African American GFR (CKD) >90 (>60 ml/min/1.73 sqM); Albumin 4.4 g/dL (3.5-5.0); Alkaline Phosphatase 57 U/L (38-126); Anion Gap 9 mmol/L; Blood Urea Nitrogen 14 mg/dL (9-20); Calcium 9.9 mg/dL (8.4-10.2); Carbon Dioxide 28 mmol/L (22-30); Chloride 101 mmol/L (98-107); Glucose 98 mg/dL (74-99); Potassium 4.4 mmol/L (3.5-5.1); Sodium 138 mmol/L (137-145); Total Bilirubin 0.5 mg/dL (0.2-1.3)
== END | disposition home or self-care (01) ==
LOC: RADXRMAIN 11:38
PROVIDERS: ATTEND Family Medicine
DX: S42.032D Displaced fracture of lateral end of left clavicle, subsequent encounter for fracture with routine healing (principal); M19.012 Primary osteoarthritis, left shoulder; S42.021D Displaced fracture of shaft of right clavicle, subsequent encounter for fracture with routine healing; S42.025D Nondisplaced fracture of shaft of left clavicle, subsequent encounter for fracture with routine healing; I10 Essential (primary) hypertension
CPT/HCPCS: 80053; 82306

== ENCOUNTER → 2019-11-24 | Outpatient (CLI) | payer OTHER ==
--- NOTE | 2019-11-24 14:20 | XR ---
EXAMINATION TYPE: XR shoulder complete LT, XR clavicle LT DATE OF EXAM: 11/24/2019 CLINICAL HISTORY: Clavicle fracture progress study. TECHNIQUE: Three views of the left shoulder are obtained. 2 views left clavicle. COMPARISON: Left shoulder clavicle x-ray August 11, 2019. FINDINGS: There is no new acute fracture/dislocation evident in the left shoulder. Moderate narrowin g and sternoclavicular joint redemonstrated. Glenohumeral joint preserved. The visualized ribs are i ntact and unremarkable. No new fracture distal left clavicle . Alignment satisfactory. Overlying soft tissue unremarkable. IMPRESSION: There is no new fracture left clavicle or shoulder.
== END | disposition home or self-care (01) ==
LOC: RADXRMAIN 13:56
PROVIDERS: ATTEND Family Medicine
DX: M25.512 Pain in left shoulder (principal)

== ENCOUNTER → 2020-12-06 | Outpatient (CLI) | payer OTHER ==
--- NOTE | 2020-12-06 17:51 | CT ---
EXAMINATION TYPE: CT abdomen pelvis w con DATE OF EXAM: 12/06/2020 COMPARISON: 06/15/2019 HISTORY: RLQ pain, hx of gastritis CT DLP: 321.8 mGycm Automated exposure control for dose reduction was used. CONTRAST: Performed with IV Contrast, patient injected with 100 mL of Isovue 300. Images were obtained from the diaphragm to the floor the pelvis with IV contrast. There is left posterior rib deformity consistent with old trauma. There is some emphysematous changes at the left lung base. Heart size is normal. Heart is shifted to the left side. There is no pericard ial effusion. There is no pleural effusion. All bladder appear intact. Bile ducts are not dilated. There is no adrenal mass size. There is no hydronephrosis. Ureters are not dilated. There is no retro peritoneal adenopathy. Bladder distends smoothly. There is no inguinal hernia. There is no free fluid in the pelvis. There is normal oral contrast opacification of the small bowel. There is no evidence of a bowel obstr uction. There is no mesenteric there is no ascites. There is no sign of thickened appendix. There are a few sigmoid diverticula. There is no sign of diverticulitis. Lumbar vertebra have fairly normal alignment. There is mild narrowing at L5-S1 disc there is no compr ession fracture. The posterior elements are intact. The hip joint spaces are fairly well-maintained. There is slight lumbar levoscoliosis. IMPRESSION: Normal diaphragmatic scarring at the left lung base with deformity and emphysema. Volume loss left he mithorax. No acute abnormality in the abdomen and pelvis. Appendix not seen. No sign of thickened appendix.
== END | disposition home or self-care (01) ==
LOC: RADCTMAIN 15:31
PROVIDERS: ATTEND Nurse Practitioner Family
DX: J43.9 Emphysema, unspecified (principal); J98.4 Other disorders of lung
CPT/HCPCS: 74177; Q9967

== ENCOUNTER → 2021-10-06 | Outpatient (CLI) | payer OTHER ==
--- NOTE | 2021-10-07 03:13 | MR ---
EXAMINATION TYPE: MR shoulder LT wo con DATE OF EXAM: 10/06/2021 COMPARISON: None HISTORY: Left shoulder strain. Multiplanar multiecho imaging of the left shoulder without contrast. The subscapularis tendon is intact. Glenoid kelly appear intact. Biceps tendon is intact. There is no evidence of a fracture. Glenohumeral joint is anatomic. The AC joint is intact. The supraspinatus te ndon appears intact. There is a 5 mm area of fluid signal in the greater tuberosity of the humerus. There is no bony destructive process. There is no evidence of a fracture. IMPRESSION: There is a small degenerative cyst in the greater tuberosity humerus. No evidence of rotator cuff tea r.
== END | disposition home or self-care (01) ==
LOC: RADMRIMAIN 21:01
PROVIDERS: ATTEND Family Medicine
DX: M85.612 Other cyst of bone, left shoulder (principal)

== ENCOUNTER 2022-08-11 08:25 | Day surgery (SDC) | payer OTHER ==
[~2022-08-11 08:25] MED LIST: LACTATED RINGERS 1,000 ML IV SCH
[2022-08-11 09:00] VITALS: RESP 16; TEMP 98.1
[2022-08-11] MEDS ORDERED: LIDOCAINE 1% (10MG/ML) FOR IV START INTRADERMA ONE (09:00)
[2022-08-11] MEDS ORDERED: LIDOCAINE 2% INJ 20 MG/ML (2 ML VIAL) ONE (09:21)
[2022-08-11] MEDS ORDERED: PROPOFOL 10 MG/ML 20 ML VIAL IV ONE (09:21)
--- NOTE | 2022-08-11 09:26 | P.GSHP ---
History of Present Illness H&P Date: 08/11/22 Chief Complaint: GERD 61-year-old here today for upper endoscopy. Last EGD was in January. Patient had significant esophagitis at that time. He apparently took his antiacids for a week however. Here for routine follow-up. Says he is asymptomatic. Past Medical History Past Medical History: Asthma, Eye Disorder, Prostate Disorder Additional Past Medical History / Comment(s): left eye macular degeneration, enlarged prostate. History of Any Multi-Drug Resistant Organisms: None Reported Past Surgical History: Orthopedic Surgery Additional Past Surgical History / Comment(s): lung surg as infant-inhaled a piece of buddy hair used on a [employer] tree", left lower lobe extraction. repair left arm fraction - cast Past Anesthesia/Blood Transfusion Reactions: No Reported Reaction Smoking Status: Current every day smoker - Past Family History Mother Family Medical History: No Reported History Father Family Medical History: Liver Disease Additional Family Medical History / Comment(s): etoh- liver disease Medications and Allergies Home Medications Medication Instructions Recorded Confirmed Type Tamsulosin HCl [Flomax] 0.4 mg PO DAILY 03/22/19 08/06/22 History Allergies Allergy/AdvReac Type Severity Reaction Status Date / Time Penicillins Allergy Rash/Hives/ Verified 08/11/22 08:51 Swelling Surgical - Exam Vital Signs Temp Pulse Resp BP Pulse Ox 98.1 F 95 16 160/92 96 08/11/22 08:53 08/11/22 08:53 08/11/22 08:53 08/11/22 08:53 08/11/22 08:53 Physical exam: General: Well-developed, well-nourished HEENT: Normocephalic, sclerae nonicteric Abdomen: Nontender, nondistended Extremities: No edema Neuro: Alert and oriented Assessment and Plan (1) GERD (gastroesophageal reflux disease) Narrative/Plan: Will proceed with upper endoscopy Current Visit: Yes Status: Acute Code(s): K21.9 - GASTRO-ESOPHAGEAL REFLUX DISEASE WITHOUT ESOPHAGITIS SNOMED Code(s): 301505731
--- NOTE | 2022-08-11 09:32 | P.PCN ---
Date of Procedure: 08/11/22 Procedure(s) Performed: Preoperative Dx: GERD Postoperative Dx: Mild gastritis, hiatal hernia, distal esophagitis Procedure: EGD with Bx Anesthesia: Sedation Endoscopist: Dr. Rose Specimens: Esophagus Endoscopic Procedure: The patient was on the endoscopy table in the left decubitus position. The Olympus gastroscope was inserted into the oropharynx and passed under direct visualization to the region of the third portion of the duodenum. From that point the scope was slowly withdrawn inspecting all surfaces carefully. There were no neoplastic inflammatory or polypoid lesions throughout the duodenum. The pylorus was widely patent. The stomach was carefully inspected. There was mild gastritis present. Retroflexion revealed a small hiatal hernia. She junction was present 2 cm above the diaphragmatic hiatus. There were 2 distal esophageal linear erosions. Overall improved from study in January. Biopsies of the distal esophagitis took place. No Teixeira's esophagus was seen. The remainder the esophagus appeared normal. The patient was then taken to the recovery room in stable condition per anesthesia guidelines. Recommendations: Await biopsies results. As needed antiacid therapy
[2022-08-11 09:53] VITALS: BP 152/90; PULSE 86
== END 2022-08-11 10:20 | disposition home or self-care (01) ==
LOC: ORWHC2ENDO 08:25
PROVIDERS: ATTEND Surgery
DX: K29.70 Gastritis, unspecified, without bleeding (principal); K21.00 Gastro-esophageal reflux disease with esophagitis, without bleeding; J45.909 Unspecified asthma, uncomplicated; Z86.69 Personal history of other diseases of the nervous system and sense organs; Z87.438 Personal history of other diseases of male genital organs; F17.200 Nicotine dependence, unspecified, uncomplicated; Z88.0 Allergy status to penicillin; K44.9 Diaphragmatic hernia without obstruction or gangrene
CPT/HCPCS: 88305; 88312; 43239; J2704; J2001

== ENCOUNTER 2023-06-25 16:19 | Emergency (ER) | payer OTHER ==
[2023-06-25] MEDS ORDERED: KETOROLAC 15 MG/ML 1 ML VIAL IM STA (17:25)
[2023-06-25] MEDS ORDERED: ACETAMINOPHEN TAB 325 MG TAB PO STA (17:25)
[2023-06-25] MEDS ORDERED: LIDOCAINE 5% PATCH TOPICAL STA (17:25)
--- NOTE | 2023-06-25 17:25 | XR ---
EXAMINATION TYPE: XR chest 2V DATE OF EXAM: 06/25/2023 COMPARISON: 07/24/2018 HISTORY: Shortness of breath TECHNIQUE: Frontal and lateral views of the chest are obtained. FINDINGS: Scattered senescent parenchymal changes noted. Hyperinflation compatible with COPD. Partial lobectomy changes in the left lung with hyperinflation of the right lung. No evidence for infiltrate. No evidence for atelectasis. Heart size is stable. Mediastinal structures are stable and grossly unremarkable. No evidence for hilar prominence. Degenerative changes dorsal spine. IMPRESSION: 1. No evidence for acute pulmonary disease.
--- NOTE | 2023-06-25 18:17 | ED ---
General Adult HPI - General Chief complaint: Fall Stated complaint: left side rib pain-fall Time Seen by Provider: 06/25/23 17:12 Source: patient, RN notes reviewed Mode of arrival: ambulatory Limitations: no limitations - History of Present Illness Initial comments: 62-year-old male presents to the emergency department chief complaint of left rib pain. He states that he was working in his camper earlier today standing on a ladder when he lost his footing on the left side and hit his ribs on a board. He did not fall to the ground. He did not hit his head or lose consciousness. He reports pain on his left sided lower rib cage worse with breathing. He denies chest pain, shortness of breath. He denies any other injury. - Related Data Home Medications Medication Instructions Recorded Confirmed Tamsulosin HCl [Flomax] 0.4 mg PO DAILY 03/22/19 08/06/22 Previous Rx's Medication Instructions Recorded Omeprazole [PriLOSEC] 20 mg PO AC-BRKFST #90 cap 08/11/22 Lidocaine 5% Patch [Lidoderm 5% 1 patch TOPICAL DAILY #30 patch 06/25/23 Patch] Allergies Allergy/AdvReac Type Severity Reaction Status Date / Time Penicillins Allergy Rash/Hives/ Verified 06/25/23 16:44 Swelling Review of Systems ROS Statement: Those systems with pertinent positive or pertinent negative responses have been documented in the HPI. ROS Other: All systems not noted in ROS Statement are negative. Past Medical History Past Medical History: Asthma, Eye Disorder Additional Past Medical History / Comment(s): left eye macular degeneration History of Any Multi-Drug Resistant Organisms: None Reported Past Surgical History: Orthopedic Surgery Additional Past Surgical History / Comment(s): lung surg as infant-inhaled a piece of buddy hair used on a [employer] tree", left lower lobe extraction. Past Anesthesia/Blood Transfusion Reactions: No Reported Reaction Past Psychological History: No Psychological Hx Reported Smoking Status: Current every day smoker Past Alcohol Use History: Occasional Past Drug Use History: None Reported - Past Family History Mother Family Medical History: No Reported History Father Family Medical History: Liver Disease Additional Family Medical History / Comment(s): etoh- liver disease General Exam Limitations: no limitations General appearance: alert, in no apparent distress Head exam: Present: atraumatic, normocephalic, normal inspection Eye exam: Present: normal appearance, PERRL, EOMI. Absent: scleral icterus, conjunctival injection, periorbital swelling ENT exam: Present: normal exam, mucous membranes moist Neck exam: Present: normal inspection. Absent: tenderness, meningismus, lymphadenopathy Respiratory exam: Present: normal lung sounds bilaterally, chest wall tenderness (Left-sided rib cage). Absent: respiratory distress, wheezes, rales, rhonchi, stridor Cardiovascular Exam: Present: regular rate, normal rhythm, normal heart sounds. Absent: systolic murmur, diastolic murmur, rubs, gallop, clicks GI/Abdominal exam: Present: soft, normal bowel sounds. Absent: distended, tenderness, guarding, rebound, rigid Extremities exam: Present: normal inspection, full ROM, normal capillary refill. Absent: tenderness, pedal edema, joint swelling, calf tenderness Back exam: Present: normal inspection Neurological exam: Present: alert, oriented X3 Psychiatric exam: Present: normal affect, normal mood Skin exam: Present: warm, dry, intact, normal color. Absent: rash Course Vital Signs 06/25/23 06/25/23 16:42 19:43 Temperature 97.8 F 98.0 F Pulse Rate 73 57 L Respiratory 20 16 Rate Blood Pressure 131/82 177/81 O2 Sat by Pulse 98 97 Oximetry Medical Decision Making - Medical Decision Making Was pt. sent in by a medical professional or institution (MATEUS Hahn, TRACK LAYING EQUIPMENT OPERATOR, urgent care, hospital, or senior care...) When possible be specific @ -No Did you speak to anyone other than the patient for history (EMS, parent, family, police, friend...)? What history was obtained from this source @ -No Did you review nursing and triage notes (agree or disagree)? Why? @ -I reviewed and agree with nursing and triage notes Were old charts reviewed (outside hosp., previous admission, EMS record, old EKG, old radiological studies, urgent care reports/EKG's, senior care records)? Report findings @ -No old charts were reviewed Differential Diagnosis (chest pain, altered mental status, abdominal pain women, abdominal pain men, vaginal bleeding, weakness, fever, dyspnea, syncope, headache, dizziness, GI bleed, back pain, seizure, CVA, palpatations, mental health, musculoskeletal)? @ -Rib fracture, rib contusion, left chest, pneumothorax, splenic rupture, this list is not all-inclusive EKG interpreted by me (3pts min.). @ -None X-rays interpreted by me (1pt min.). @ -X-ray chest showed no evidence of acute fracture CT interpreted by me (1pt min.). @ -CT chest without contrast showed no evidence of acute fracture, remote left- sided rib fractures, pleural parenchymal scarring U/S interpreted by me (1pt. min.). @ -None done What testing was considered but not performed or refused? (CT, X-rays, U/S, labs)? Why? @ -None What meds were considered but not given or refused? Why? @ -None Did you discuss the management of the patient with other professionals (professionals i.e. , PA, TRACK LAYING EQUIPMENT OPERATOR, lab, RT, psych nurse, socially responsible investment adviser, cornetist, teacher, student liaison officer, director of casework services)? Give summary @ -No Was smoking cessation discussed for >3mins.? @ -No Was critical care preformed (if so, how long)? @ -No Were there social determinants of health that impacted care today? How? (Homelessness, low income, unemployed, alcoholism, drug addiction, transportation, low edu. Level, literacy, decrease access to med. care, half-way, rehab)? @ -No Was there de-escalation of care discussed even if they declined (Discuss DNR or withdrawal of care, Hospice)? DNR status @ -No What co-morbidities impacted this encounter? (DM, HTN, Smoking, COPD, CAD, Cancer, CVA, ARF, Chemo, Hep., AIDS, mental health diagnosis, sleep apnea, morbid obesity)? @ -None Was patient admitted / discharged? Hospital course, mention meds given and route, prescriptions, significant lab abnormalities, going to OR and other pertinent info. @ -Discharged. Patient presented to emergency department with chief complaint of left-sided rib pain after falling and hitting his side on a board. CXR obtained which showed no acute fracture. CT chest showed no evidence of acute rib fracture. Patient advised of these findings. Patient discharged and return precautions discussed. Patient stable at time of discharge. Case discussed with my attending, Dr. Corrales Undiagnosed new problem with uncertain prognosis? @ -No Drug Therapy requiring intensive monitoring for toxicity (Heparin, Nitro, Insulin, Cardizem)? @ -No Were any procedures done? @ -No Diagnosis/symptom? @ -rib contusion Acute, or Chronic, or Acute on Chronic? @ -acute Uncomplicated (without systemic symptoms) or Complicated (systemic symptoms)? @ -uncomplicated Side effects of treatment? @ -No Exacerbation, Progression, or Severe Exacerbation? @ -No Poses a threat to life or bodily function? How? (Chest pain, USA, CA, pneumonia, PE, COPD, DKA, ARF, appy, cholecystitis, CVA, Diverticulitis, Homicidal, Suicidal, threat to staff... and all critical care pts) @ -No Disposition Clinical Impression: Contusion of rib on left side Disposition: HOME SELF-CARE Condition: Stable Instructions (If sedation given, give patient instructions): Fall Prevention (ED), Rib Contusion (ED) Additional Instructions: Please return to the emergency department for new or worsening symptoms. Prescriptions: Lidocaine 5% Patch [Lidoderm 5% Patch] 1 patch TOPICAL DAILY #30 patch Is patient prescribed a controlled substance at d/c from ED?: No Referrals: Ehsan East MD [Primary Care Provider] - 1-2 days Time of Disposition: 19:21
--- NOTE | 2023-06-25 18:58 | CT ---
EXAMINATION TYPE: CT chest wo con DATE OF EXAM: 06/25/2023 COMPARISON: Radiograph same day HISTORY: 62-year-old female fall. Left side rib pain TECHNIQUE: Contiguous axial scanning of the chest without contrast. Coronal/sagittal reconstructions performed. CT DLP: 278.7mGycm. Automatic exposure control utilized for a dose reduction. FINDINGS: The heart is size without pericardial effusion. LAD and RCA coronary artery calcifications are presen t. Aorta normal caliber with conventional arch vessel branching anatomy. Calcified left hilar lymph node s compatible with prior granulomatous disease. No thoracic lymphadenopathy by CT size criteria. Moderate emphysematous change. 4 mm posterior left upper lobe pulmonary nodule, axial 7. Prominent tree-in-bud opacities left lower lung. Opacities at the left base suspected to represent pleural parenchymal scarring. Much of these changes are similar to 2020 but some nodularity here varying between 6 mm to 10 mm appears to be slightly in creased measuring up to 8 mm, previously. Follow-up recommended. Visualized upper abdomen shows no gross abnormality. Bones: There appears to be post thoracotomy change or sequela of remote injury along the right cleaning team member ior ribs. IMPRESSION: 1. Either sequela of remote left posterior fractures or prior thoracotomy change. No acute rib fractu re is clearly identified. 2. Chronic pleural parenchymal scarring at the left base with some underlying nodularities that has s lightly increased and varying in size from 6 mm to 10 mm. Recommend 6 month follow-up to reassess. A 4 mm left upper lobe pulmonary nodule should also be reassessed at follow-up. 3. COPD with moderate emphysema. Extensive tree-in-bud opacities along the left lower lung that could represent aspiration or bronchiolitis including infectious bronchiolitis. Clinically correlate.
[2023-06-25 19:44] VITALS: BP 177/81; PULSE 57; RESP 16; TEMP 98
== END 2023-06-25 20:00 | disposition home or self-care (01) ==
LOC: EC 16:19
DX: S20.212A Contusion of left front wall of thorax, initial encounter (principal); J43.9 Emphysema, unspecified; F17.200 Nicotine dependence, unspecified, uncomplicated; Z88.0 Allergy status to penicillin; X58.XXXA Exposure to other specified factors, initial encounter
CPT/HCPCS: 71046; 71250; 99284; 96372; J1885

== ENCOUNTER → 2024-01-05 | Outpatient (CLI) | payer OTHER ==
--- NOTE | 2024-01-05 11:31 | CT ---
EXAMINATION TYPE: CT chest w con CT DLP: 335 mGycm, Automated exposure control for dose reduction was used. DATE OF EXAM: 01/05/2024 11:00 AM COMPARISON: 06/25/2023. CLINICAL INDICATION:Male, 63 years old with history of R91.8 ABNORMAL FINDING OF LUNG FIELD, Abnormal findings lung field TECHNIQUE: Multiple axial images were obtained through the chest. Sagittal and coronal reformats were created for review. Contrast used:100 mL of Isovue 300 with IV Contrast (None if empty) Oral contrast used: (None if empty) FINDINGS: LUNGS/ PLEURA: Leftward shift of the mediastinum. Post surgical changes to the left lung. Mild-to-mod erate emphysema changes throughout the lung scarring changes are seen in the left anterior left lung with some bronchial wall thickening. AIRWAY: Patent and unremarkable. HEART: Size within normal limits.Atherosclerosis of the arterial vasculature. MEDIASTINUM: No gross evidence of adenopathy. VASCULATURE: No aortic aneurysm. MUSCULOSKELETAL: No acute osseous abnormalities, deformities of multiple ribs on the left likely post surgical and/or posttraumatic. No 21acute fracture identified. SOFT TISSUES/LYMPH NODES: Unremarkable. LOWER NECK: No significant findings. UPPER ABDOMEN: No significant findings. IMPRESSION: 1. Stable post surgical changes along with out evidence for new or enlarging pulmonary nodule. No ly mphadenopathy. 2. Left lower lobe airspace opacities with similar morphology to prior. Could represent scarring or atelectasis.
== END | disposition home or self-care (01) ==
LOC: RADCTMAIN 09:58
PROVIDERS: ATTEND Internal Medicine
DX: R91.8 Other nonspecific abnormal finding of lung field (principal); Z98.890 Other specified postprocedural states
CPT/HCPCS: 71260; Q9967

== ENCOUNTER → 2025-03-06 | Outpatient (CLI) | payer MEDICARE, OTHER ==
--- NOTE | 2025-03-07 21:53 | CTL ---
EXAMINATION TYPE: CT Low Dose Lung DATE OF EXAM: 03/06/2025 4:26 PM COMPARISON: None. SCREENING VISIT: Initial CT DIAGNOSTIC QUALITY: Satisfactory CLINICAL INDICATION: Male, 64 years old with history of Z12.2 LUNG CA SCR F17.210 SMOKER, Current smo ker, 1 ppd x 45 years, Lung cancer screening, History of tobacco use. TECHNIQUE: Low dose computed tomography scan was performed through the chest at 1 mm thick sections a nd reconstructed images in the coronal plane at 1 mm thick sections. Contrast used: mL of , (none if empty) Oral contrast used: (none if empty) CT DLP: 60.1 mGycm, Automated exposure control for dose reduction was used. CT CTDI: 1.5 mGy, Automated exposure control for dose reduction was used. FINDINGS: LUNG NODULES: Present, detailed below: 1. There is a 1 cm groundglass opacity in the posterior left lung. Series 4 image 161. Present previo usly. 2. There is a 0.4 cm ill-defined density posterior left lung, present previously and stable. Series 4 image 62. 3. There is a 1.4 cm long infiltrate posterior lateral left lung, present previously. LUNGS: COPD: Severity: Mild. Peribronchial thickening is present. Fibrosis: Severity: None Lymph nodes: None Other findings: None RIGHT PLEURAL SPACE: Effusion: None Calcification: None Thickening: None Pneumothorax: None LEFT PLEURAL SPACE: Effusion: None Calcification: None Thickening: None Pneumothorax: None HEART: Other: Ascending thoracic aorta at the level the main pulmonary artery measures cm. The main pulmona ry artery at the bifurcation measures cm. Heart Size: Normal Coronary calcification: No significant coronary artery calcifications. Pericardial effusion: None OTHER FINDINGS: Upper abdomen: Normal Bony thorax: There is deformity of the posterior lateral left lung. Some basilar scarring appears to be adjacent. Supraclavicular region: Normal IMPRESSION: 1. Stable findings. FOLLOW UP CT CHEST RECOMMENDATION: Follow-up low-dose CT chest one year CT LUNG RAD: Lung-Rad 2 Benign Appearance or Behavior [facility], , 03/07/2025 9:50 PM
== END | disposition home or self-care (01) ==
LOC: RADCTMAIN 15:46
PROVIDERS: ATTEND Internal Medicine
DX: Z12.2 Encounter for screening for malignant neoplasm of respiratory organs (principal); F17.210 Nicotine dependence, cigarettes, uncomplicated; J44.9 Chronic obstructive pulmonary disease, unspecified; R91.8 Other nonspecific abnormal finding of lung field; J98.4 Other disorders of lung; J98.09 Other diseases of bronchus, not elsewhere classified
CPT/HCPCS: 71271